=== PATIENT | male | born 1945 | race Caucasian/White ===

== ENCOUNTER 2020-01-25 10:37 | Emergency (ER) | payer MEDICARE, SELFPAY ==
[2020-01-25 10:43] VITALS: BP 161/92; PULSE 72; RESP 19; TEMP 36.8; O2SAT 97
--- NOTE | 2020-01-25 12:28 | ED.SKABFB ---
HPI - Skin/Abscess/Foreign Bdy General Chief complaint: Skin/Abscess/Foreign Body Stated complaint: wound in armpit Time Seen by Provider: 01/25/20 11:58 Source: patient Mode of arrival: ambulatory Limitations: no limitations History of Present Illness HPI narrative: This is a 74-year-old male that presents the emergency department for right axilla wound x1 week. Reports he thought he had a bite to the right armpit a week ago. Was seen at an urgent care and started on a steroid taper and a steroid cream. The lesion started to get more red and swollen. He also started to have drainage from the area. Was started on Bactrim yesterday. Has continued to have pain and swelling in the area. Denies fevers. Related Data Home Medications Medication Instructions Recorded Confirmed diltiazem HCl [DILT-XR] 240 mg PO DAILY 01/25/20 01/25/20 isosorbide mononitrate 60 mg PO BID 01/25/20 01/25/20 pantoprazole 40 mg PO DAILY 01/25/20 01/25/20 simvastatin 20 mg PO HS 01/25/20 01/25/20 sulfamethoxazole-trimethoprim 1 tablet PO BID 01/25/20 01/25/20 tamsulosin 0.4 mg PO DAILY 01/25/20 01/25/20 triamcinolone acetonide 1 applic TOPICAL BID 01/25/20 01/25/20 Allergies Allergy/AdvReac Type Severity Reaction Status Date / Time No Known Allergies Allergy Verified 01/25/20 11:48 Review of Systems Review of Systems: Narrative: CONSTITUTIONAL: Denies fever SKIN: Reports abscess All systems reviewed & are unremarkable except as noted in HPI and below PMFSH Past Medical History Medical History (Updated 01/25/20 @ 14:45 by Camila Cloud PA-C) History of coronary artery disease History of gastroesophageal reflux (GERD) History of hyperlipidemia History of hypertension Social History Social History Gender identity (if verbalized by the patient): Male Exam Narrative: Exam Narrative: GENERAL: Well-appearing, obese, and in no acute distress. HEAD: Normocephalic, atraumatic. EYES: EOMI EXTREMITIES: Normal range of motion. Right axilla with two small (1.5cm) areas of erythema with central fluctuance, draining pus with expression. Moderate surrounding erythema and induration. No lymphangitic streaking SKIN: Warm, dry, no rash. NEURO: No focal deficits. Alert and oriented x3. PSYCH: Normal mood and affect Course Vital Signs Vital signs: Vital Signs Temperature 98.3 F 01/25/20 10:43 Pulse Rate 72 01/25/20 10:43 Respiratory Rate 19 01/25/20 10:43 Blood Pressure 161/92 H 01/25/20 10:43 Pulse Oximetry 97 01/25/20 10:43 Temperature 98.3 F 01/25/20 10:43 Pulse Rate 72 01/25/20 10:43 Respiratory Rate 19 01/25/20 10:43 Blood Pressure 161/92 H 01/25/20 10:43 Pulse Oximetry 97 01/25/20 10:43 Procedures Abscess I/D upper extremity: Date of Incision: 01/25/20 Time of Incision: 14:44 Side (if applicable): right Local Anesthetic: lidocaine 1% and with epi Amount of anesthesia used (mL): 3 Technique: incised with #11 blade Packing used?: none I&D Results: Pus and Blood MDM - Skin/Abscess/Foreign Bdy MDM Narrative Medical decision making narrative: Patient presents the emergency department for cellulitis of the right axilla. 2 small areas purulence that were opened with small amounts of pus expressed. This was sent for wound culture. Patient is afebrile and nontoxic-appearing. CBC with mild leukocytosis to 13.6. CRP is mildly elevated. ESR is normal. Patient is stable and felt appropriate for further outpatient evaluation. He will follow-up with his primary care doctor. He is to continue his oral antibiotics. Patient was given warnings to return to the ER Lab Data Attestation: I reviewed the patient's lab results. Result diagrams: 01/25/20 12:44 01/25/20 12:44 Labs: Lab Results 01/25/20 01/25/20 Range/Units 12:44 12:44 WBC 13.6 H (4.5-10.0) K/mm3 RBC 5.17 (4.6-6.20) M/mm3 Hgb 16.1 (14.0-18.
[2020-01-25 13:04] LABS: Basophils Absolute Auto 0.1 K/mm3 (0.0-0.1); Basophils Percent Auto 0.6 % (0.2-1.2); Eosinophils Absolute Auto 0.2 K/mm3 (0-0.3); Eosinophils Percent Auto 1.3 % (0-4.4); Hematocrit 46.9 % (42.0-52.0); Hemoglobin 16.1 g/dL (14.0-18.0); Immature Granulocyte Absolute 0.18 K/mm3 (0.00-0.031); Immature Granulocyte Percent A 1.3 % (0-0.5); Lymphocytes Absolute Auto 2.44 K/mm3 (0.9-3.2); Lymphocytes Percent Auto 17.9 % (18.3-44.2); Mean Corpuscular HGB Conc 34.3 g/dl (32-36); Mean Corpuscular Hemoglobin 31.1 pg (26-34); Mean Corpuscular Volume 90.7 fl (80-100); Mean Platelet Volume 10.4 fl (7.4-10.4); Monocytes Absolute Auto 1.1 K/mm3 (0.1-0.6); Neutrophils Absolute Auto 9.7 K/mm3 (1.3-6.7); Neutrophils Percent Auto 70.9 % (45.5-73.1); Platelet Count Result 247 k/mm3 (150-375); Red Blood Count 5.17 M/mm3 (4.6-6.20); Red Cell Distribution Width 13.2 % (11.5-14.5); White Blood Count 13.6 K/mm3 (4.5-10.0)
[2020-01-25 13:07] LABS: Anion Gap 13.4 mmol/L (7-16); Blood Urea Nitrogen 18 mg/dL (9-20); CRP 2.7 mg/dL (<1.0); Calcium 9.1 mg/dL (8.4-10.2); Carbon Dioxide 24 mmol/L (22-30); Chloride 102 mmol/L (98-107); Estimated CRCL calculation 65 ml/min; Estimated Glomerular Filt Rate > 60; Glucose 116 mg/dL (75-110); Potassium 4.4 mmol/L (3.4-5.0); Sodium 135 mmol/L (137-145)
[2020-01-25 13:41] LABS: Erythrocyte Sedimentation Rate 10 mm/hr (0-20)
[2020-01-25 15:02] VITALS: BP 144/88; PULSE 66; RESP 18; TEMP 36.7; O2SAT 95
== END 2020-01-25 15:03 | disposition home or self-care (01) ==
PROVIDERS: Physician Assistant; Emergency Provider Emergency Medicine
DX: L03.111 Cellulitis of right axilla (principal); I25.10 Atherosclerotic heart disease of native coronary artery without angina pectoris; K21.9 Gastro-esophageal reflux disease without esophagitis; E78.5 Hyperlipidemia, unspecified; I10 Essential (primary) hypertension
CPT/HCPCS: 10060; 36415; 80048; 85025; 85652; 86140; 87070; 87075; 87147; 87186; 87205; 99283

== ENCOUNTER 2020-05-31 12:36 | Emergency (ER) | payer MEDICARE, SELFPAY ==
--- NOTE | ~2020-05-31 | CT_ITS ---
EXAMINATION: CTA chest PE protocol DATE: 05/31/2020 14:17 INDICATION: Shortness of breath. Cardiac catheterization 3 weeks ago. TECHNIQUE: Computed tomography angiography (CTA) of the chest was performed with 100 mL Omnipaque-350 intravenous contrast timed to evaluate the pulmonary arteries. Coronal maximum intensity projection 3D-reconstructions were created by the technologist. Automated exposure control and iterative reconst ruction technique were employed. Exam dose: 886.40 mGy-cm total exam DLP. COMPARISON: 05/31/2020 portable AP chest FINDINGS: There is diagnostic contrast enhancement of the pulmonary arteries and no evidence of pulmo nary embolism. Status post sternotomy. No thoracic aortic aneurysm is evident. Normal heart size. Coronary artery calcifications. No hilar or mediastinal mass lesion or lymphadenopathy. No pulmonary consolidation or pulmonary mass lesion is evident. 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 Calcified splenic granulomas consistent with old granulomatous disease. Included portions of the adre nal glands are unremarkable. Included skeletal structures are unremarkable other than degenerative changes of the cervical and tho racic spine. No suspicious osteolytic or osteoblastic lesions are noted.. IMPRESSION: No evidence of pulmonary embolism Reviewed, dictated and finalized at [facility]. Reviewed, dictated and finalized at [facility]. 'S SWIM COACH
--- NOTE | ~2020-05-31 | XR_ITS ---
XR chest 1V portable DATE: 05/31/2020 12:56 INDICATION: Chest pain TECHNIQUE: Portable AP chest on 12 05/23/2020 at 1256 hours COMPARISON: None FINDINGS: Status post sternotomy. Heart size is likely within normal range considering magnification associated with AP projection. No hilar or mediastinal enlargement is evident. Aortic arch and descen ding thoracic aortic calcification. No pulmonary infiltrate or consolidation, pleural effusion or pulmonary vascular congestion or pneumo thorax. Diffuse osteopenia. IMPRESSION: Status post sternotomy; no active cardiac pulmonary disease Reviewed, dictated and finalized at [facility]. [employer]
--- NOTE | 2020-05-31 12:40 | ECG_ITS ---
Measurements Intervals [place] Rate: 66 P: 74 [place]: 186 QRS: 13 QRSD: 105 T: 43 QT: 398 QTc: 420 Interpretive Statements SINUS RHYTHM WITH SINUS ARRHYTHMIA VENTRICULAR PREMATURE COMPLEX DELAYED PRECORDIAL R/S TRANSITION BASELINE ARTIFACT- V5 BORDERLINE ECG Electronically Signed On 05-31-2020 16:27:22 BEEF SELECTOR by Vj Avila D.O.
[2020-05-31 12:42] VITALS: BP 159/89; PULSE 63; RESP 18; TEMP 36.8; O2SAT 95
[2020-05-31 12:46] VITALS: PULSE 58
--- NOTE | 2020-05-31 12:49 | ED.CHESTPAIN ---
HPI - Chest Pain General Chief Complaint: Chest Pain Stated Complaint: cp/left arm pain Time Seen by Provider: 05/31/20 12:47 Source: patient Limitations: no limitations History of Present Illness HPI narrative: 75 years old white male wake up this morning with left shoulder discomfort. Improved at rest, currently patient still have some heaviness. Patient denies any shortness of breath. Patient been having intermittent similar symptoms for the last 2 months, cardiac cath 3 weeks ago showed occlusion of small coronary arteries, changing medication was recommended at that time to see how it goes. Currently patient on a baby aspirin once a day. Patient denies any fever, chills, nausea, vomiting, exposure to anybody known having COVID-19 Related Data Home Medications Medication Instructions Recorded Confirmed isosorbide mononitrate 60 mg PO BID 01/25/20 01/25/20 pantoprazole 40 mg PO DAILY 01/25/20 01/25/20 simvastatin 20 mg PO HS 01/25/20 01/25/20 tamsulosin 0.4 mg PO DAILY 01/25/20 01/25/20 Allergies Allergy/AdvReac Type Severity Reaction Status Date / Time No Known Allergies Allergy Verified 05/31/20 12:47 Review of Systems Review of Systems: Narrative: CONSTITUTIONAL: Denies fever, chills, or sweats. EYES: Denies visual changes, redness, or discharge. ENT: Denies rhinorrhea, congestion, sore throat, or otalgia. CARDIOVASCULAR: Intermittent chest pain RESPIRATORY: Denies cough or dyspnea. GASTROINTESTINAL: Denies abdominal pain, nausea, vomiting, or diarrhea. GENITOURINARY: Denies dysuria or hematuria. SKIN: Denies rash or itching. MUSCULOSKELETAL: Denies back pain, joint pain, or myalgia. NEUROLOGIC: Denies headache, numbness, or weakness. PSYCHIATRIC: Denies anxiety or depression. [facility] Past Medical History Medical History (Updated 05/31/20 @ 15:30 by Vangie Reyes MD) APC (atrial premature contractions) CAD (coronary artery disease) History of coronary artery disease [place] 1994, CABG 1994, LAD stent at a later date History of gastroesophageal reflux (GERD) History of hyperlipidemia History of hypertension Surgical History Surgical History (Updated 05/31/20 @ 15:23 by Vangie Reyes MD) Hx of CABG 1994: PINZON to the Left anterior descending, T graft supplying the OM2 and PDA. Family History Family History (Updated 05/31/20 @ 15:25 by Vangie Reyes MD) Mother Heart disease Father Heart disease Social History Social History (Updated 05/31/20 @ 15:25 by Vangie Reyes MD) Social History: Gender identity (if verbalized by the patient): Male Exam Narrative: Exam Narrative: General appearance: Well-developed, well-nourished Skin: Normal color Head: Normocephalic, nontraumatic Eyes: Clear conjunctiva ENT: Oropharynx normal, ears normal, nose normal Neck: Supple, nontender Chest and respiratory: Airway patent, no respiratory distress, no accessory muscle use Heart: Regular rate/rhythm Abdomen: Soft, nontender, no organomegaly, quiet bowel sounds Vascular: Normal peripheral pulses, normal capillary refill. Musculoskeletal: Normal range of motion, nontender back Neurologic: Alert and oriented ?3, [employer] is normal as tested, no gross motor deficit Course Course Emergency Course: Stable Consultations Consultation #1: Dr. Reyes Date: 05/31/20 Time: 13:33 Consultation #2: Dr. Reyes Came to the emergency room, after evaluation decided to let patient go home after the second troponin looks okay. She told me that the cardiac cath looks good and patient would be okay to be discharged and she is planning to call him at home for appointment. Date: 05/31/20 Time: 15:05 Vital Signs Vit
[2020-05-31] MEDS: ASPIRIN 81 MG CHEWABLE TABLET 324 MG PO (12:54)
[2020-05-31 12:55] LABS: Basophils Absolute Auto 0.1 K/mm3 (0.0-0.1); Basophils Percent Auto 0.9 % (0.2-1.2); Eosinophils Absolute Auto 0.2 K/mm3 (0-0.3); Eosinophils Percent Auto 2.7 % (0-4.4); Hematocrit 44.6 % (42.0-52.0); Hemoglobin 15.4 g/dL (14.0-18.0); Immature Granulocyte Absolute 0.04 K/mm3 (0.00-0.031); Immature Granulocyte Percent A 0.5 % (0-0.5); Lymphocytes Absolute Auto 2.76 K/mm3 (0.9-3.2); Lymphocytes Percent Auto 33.9 % (18.3-44.2); Mean Corpuscular HGB Conc 34.5 g/dl (32-36); Mean Corpuscular Hemoglobin 30.7 pg (26-34); Mean Corpuscular Volume 88.8 fl (80-100); Monocytes Percent Auto 12.4 % (2.6-8.5); Neutrophils Percent Auto 49.6 % (45.5-73.1); Platelet Count Result 222 k/mm3 (150-375); Red Blood Count 5.02 M/mm3 (4.6-6.20); Red Cell Distribution Width 12.7 % (11.5-14.5); White Blood Count 8.1 K/mm3 (4.5-10.0)
[2020-05-31 13:05] LABS: INR 0.9; Prothrombin Time 13.1 Seconds (11.1-14.7)
[2020-05-31 13:06] LABS: Partial Thromboplastin Time 29.4 SECONDS (22.3-36.8)
[2020-05-31 13:08] LABS: D Dimer 0.56 ug/mL (<0.48)
[2020-05-31 13:11] LABS: Anion Gap 10 mmol/L (8-16); Blood Urea Nitrogen 18 mg/dL (9-20); Calcium 9.5 mg/dL (8.4-10.2); Carbon Dioxide 25 mmol/L (22-30); Chloride 102 mmol/L (98-107); Estimated CRCL calculation 74 ml/min; Estimated Glomerular Filt Rate > 60; Glucose 100 mg/dL (75-110); Potassium 4.3 mmol/L (3.4-5.0); Sodium 137 mmol/L (137-145)
[2020-05-31 13:23] LABS: Troponin I < 0.012 ng/mL (0.000-0.034)
[2020-05-31 13:30] VITALS: BP 122/84; PULSE 61; RESP 16; O2SAT 94
[2020-05-31] MEDS: NITROGLYCERIN SL 0.4 MG TABLET SUBLINGUAL (14:22)
[2020-05-31 14:23] VITALS: BP 118/78; PULSE 63; RESP 15; O2SAT 94
[2020-05-31 14:31] VITALS: BP 122/81; PULSE 90; RESP 16; O2SAT 98
--- NOTE | 2020-05-31 14:31 | PC.NURSE ---
received nitro x1 denied pain after dosing went from 4/10 to 0/10
--- NOTE | 2020-05-31 15:09 | PM.CNCAR ---
Assessment and Plan Assessment and plan (1) Chest pain: Qualifiers: Chest pain type: unspecified Qualified Code(s): R07.9 - Chest pain, unspecified Code(s): R07.9 - Chest pain, unspecified Status: Acute Assessment and Plan: Patient has some exertional chest discomfort for the 1st time in quite a while as well as some pounding of his heart. The palpitations may be from his APCs. He is getting his antianginal medications adjusted. The patient's left arm discomfort was probably musculoskeletal. He is feeling well with no ischemic changes. If his 2nd troponin is unremarkable I think he can be discharged home for office follow-up. Reassurance provided to pt and . The patient feels that this is related to the higher dose of metoprolol; I think that is coincidental. However we may need to reduce the dose back to 25 or 37.5 mg daily based on his impression that the metoprolol caused him harm. (2) CAD (coronary artery disease): Code(s): I25.10 - Atherosclerotic heart disease of [place] coronary artery without angina pectoris Status: Acute Assessment and Plan: His cardiac catheterization in early May showed patent grafts but moderate disease of the mid circumflex with several tight stenosis of the OM 4, and stenosis the ostial diagonal. We are hoping that medical therapy will resolve his angina. (3) Hx of CABG: Code(s): Z95.1 - Presence of aortocoronary bypass graft Status: Acute Assessment and Plan: CABG X 3; intact grafts by cath 05/2020. (4) APC (atrial premature contractions): Code(s): I49.1 - Atrial premature depolarization Status: Acute Assessment and Plan: Frequent APCs noted, which may account for the patient's heart pounding sensation. Enjoys coffee, 3-4 cups a day, says sometimes a whole pot of coffee. Recommend the patient reduce his caffeine intake. History of Present Illness History of Present Illness Consult date/time: 05/31/20 15:09 Requesting physician: Carlton Castillo MD Consult reason: chest pain Reason For Visit: cp/left arm pain Narrative: Date of service: 05/31/2020 Mr. Howie Arana is a 75-year-old white male with history of CAD and CABG followed by Dr. Sheets. I was asked to see him by Dr. Castillo in the ER for my advice and opinion regarding his chest and arm pain in consultation. The patient has a history of [place] in 1992 and CABG X 3 in 1994, as well as a Left anterior descending stent jorge luis later date. He was hospitalized a [place] in March 2020 with some chest discomfort with negative troponins and discharged. He saw Dr. Sheets in April w/ exertional problems, and a stress test showed a small medium-sized area of infarction at the apex, and a small mild area of ischemia of the basal anterolateral and mid anterolateral segments with ejection fraction 67%. He then underwent cardiac catheterization by Dr. Odell on May 08, 2020 a [facility]. This showed occlusion of the mid Left anterior descending, 50-60% diffuse disease of the mid CX with severe multiple stenosis in the OM-4 branch, chronic total occlusion of the proximal RCA, patent PINZON to Left anterior descending with a patent T graft supplying the OM and RPDA. EF 60-65%. Continuing to work with antianginal medications was recommended and, if the patient continued to have angina despite optimal medical therapy then consideration to intervention on the ostial diagonal possibly the circumflex could be entertained. With that in mind, his diltiazem was switched to metoprolol succinate 25 mg daily for 1 week and increase to 50 mg daily last week. The patient has been doing well, doing his usual long walk on the bike paths with no problems. This morning he woke up with left arm aching. He has troubles with his left shoulder sometimes and hi
[2020-05-31 16:18] LABS: Troponin I < 0.012 ng/mL (0.000-0.034)
[2020-05-31 16:58] VITALS: BP 122/82; PULSE 64; RESP 20; O2SAT 95
== END 2020-05-31 17:01 | disposition home or self-care (01) ==
PROVIDERS: Emergency Provider Emergency Medicine; PCP Internal Medicine Cardiovascular Disease
DX: R07.9 Chest pain, unspecified (principal); I25.10 Atherosclerotic heart disease of native coronary artery without angina pectoris; Z95.1 Presence of aortocoronary bypass graft; K21.9 Gastro-esophageal reflux disease without esophagitis; E78.5 Hyperlipidemia, unspecified; I10 Essential (primary) hypertension; Z79.82 Long term (current) use of aspirin; I49.3 Ventricular premature depolarization; I49.1 Atrial premature depolarization
CPT/HCPCS: 36415; 71045; 71275; 80048; 84484; 85025; 85380; 85610; 85730; 93005; 99284; A9270; Q9967

== ENCOUNTER 2020-11-06 08:50 | Outpatient (CLI) | payer MEDICARE, SELFPAY ==
[2020-11-06 09:37] LABS: Cholesterol 159 mg/dL (0-200); HDL Direct 30 mg/dL; Triglycerides 152 mg/dL (<150)
[2020-11-06 09:48] LABS: LDL Cholesterol Direct 96 mg/dL
== END 2020-11-06 08:51 | disposition home or self-care (01) ==
LOC: ANHLAB 08:55
PROVIDERS: Visit Provider Internal Medicine Cardiovascular Disease
DX: E78.2 Mixed hyperlipidemia (principal)
CPT/HCPCS: 36415; 80061

== ENCOUNTER 2021-04-02 12:35 | Observation (INO) | payer MEDICARE, SELFPAY ==
[2021-04-02] VITALS (7 sets, daily range): BP systolic 130–161; BP diastolic 74–99; PULSE 79–89; RESP 16–97; TEMP 36.4–36.5; O2SAT 94–100
--- NOTE | ~2021-04-02 | XR_ITS ---
EXAMINATION: XR chest 2V EXAM DATE: 04/02/2021 13:01 INDICATION: Chest pain. History coronary artery disease, myocardial infarction, reflux and hypertensi on. TECHNIQUE: Frontal and lateral projections of the chest obtained and reviewed. Comparison is made to prior examination from 05/31/2020. FINDINGS: Sternotomy wires are present without findings to suggest sternal dehiscence. The cardiomed iastinal silhouette is prominent but magnified on this AP technique. No confluent consolidation, pneu mothorax or pleural effusion suspected. There are no osseous abnormalities identified. IMPRESSION: No acute cardiopulmonary findings. Reviewed, dictated and finalized at [facility].
--- NOTE | 2021-04-02 12:36 | ECG_ITS ---
Measurements Intervals [place] Rate: 87 P: [place]: 0 QRS: 9 QRSD: 109 T: 81 QT: 356 QTc: 430 Interpretive Statements ATRIAL FIBRILLATION NONSPECIFIC T-WAVE ABNORMALITY- HIGH LATERAL LEADS ABNORMAL ECG Electronically Signed On 04-02-2021 12:54:53 CDT by Vj Avila D.O.
[2021-04-02 13:23] LABS: Basophils Absolute Auto 0.1 K/mm3 (0.0-0.1); Basophils Percent Auto 0.7 % (0.2-1.2); Eosinophils Absolute Auto 0.1 K/mm3 (0-0.3); Eosinophils Percent Auto 1.4 % (0-4.4); Hematocrit 44.8 % (42.0-52.0); Hemoglobin 15.4 g/dL (14.0-18.0); Immature Granulocyte Absolute 0.04 K/mm3 (0.00-0.031); Immature Granulocyte Percent A 0.5 % (0-0.5); Lymphocytes Absolute Auto 2.29 K/mm3 (0.9-3.2); Lymphocytes Percent Auto 28.5 % (18.3-44.2); Mean Corpuscular HGB Conc 34.4 g/dl (32-36); Mean Corpuscular Volume 90.3 fl (80-100); Mean Platelet Volume 10.7 fl (7.4-10.4); Monocytes Absolute Auto 0.8 K/mm3 (0.1-0.6); Monocytes Percent Auto 9.8 % (2.6-8.5); Neutrophils Absolute Auto 4.7 K/mm3 (1.3-6.7); Neutrophils Percent Auto 59.1 % (45.5-73.1); Platelet Count Result 228 k/mm3 (150-375); Red Blood Count 4.96 M/mm3 (4.6-6.20); Red Cell Distribution Width 13.5 % (11.5-14.5)
[2021-04-02] MEDS: ASPIRIN 81 MG CHEWABLE TABLET 324 MG PO (13:33)
[2021-04-02 13:41] LABS: Prothrombin Time 13.2 Seconds (11.1-14.7)
[2021-04-02 13:42] LABS: Partial Thromboplastin Time 27.5 SECONDS (22.3-36.8)
[2021-04-02 13:47] LABS: Anion Gap 7 mmol/L (8-16); Blood Urea Nitrogen 16 mg/dL (9-20); Calcium 9.3 mg/dL (8.4-10.2); Carbon Dioxide 28 mmol/L (22-30); Chloride 101 mmol/L (98-107); Estimated CRCL calculation 65 ml/min; Estimated Glomerular Filt Rate > 60; Glucose 108 mg/dL (65-110); Potassium 4.1 mmol/L (3.4-5.0); Sodium 136 mmol/L (137-145)
[2021-04-02 13:59] LABS: Troponin I < 0.012 ng/mL (0.000-0.034)
[2021-04-02 14:00] LABS: NT Pro B Type Natriuretic Pept 657 pg/mL (5-100)
--- NOTE | 2021-04-02 14:06 | ED.CHESTPAIN ---
HPI - Chest Pain General Chief Complaint: Chest Pain Stated Complaint: chest pain Time Seen by Provider: 04/02/21 12:42 History of Present Illness HPI narrative: Patient is a 76-year-old male who presents to the ER with reports of chest pain and shortness of breath. Ongoing for the last week. Reports he can only walk a half block before he has chest discomfort and shortness of breath or he has to stop. Typically he can walk 1 mile. He reports he was having improved discomfort with nitro 5 days ago but he can no longer get improvement with nitro at this time. No diaphoresis. Reports new lower extremity edema in both legs that is 1+. No orthopnea. Wroks with Dr. Sheets. Related Data Home Medications Medication Instructions Recorded Confirmed isosorbide mononitrate 60 mg PO BID 01/25/20 01/25/20 pantoprazole 40 mg PO DAILY 01/25/20 01/25/20 simvastatin 20 mg PO HS 01/25/20 01/25/20 tamsulosin 0.4 mg PO DAILY 01/25/20 01/25/20 Allergies Allergy/AdvReac Type Severity Reaction Status Date / Time No Known Allergies Allergy Verified 05/31/20 12:47 Review of Systems Review of Systems: All systems reviewed & are unremarkable except as noted in HPI and below Constitutional: Constitutional: Denies chills, Reports fatigue, Denies fever(s) and Denies weakness Cardiovascular: Cardiovascular: Reports chest pain, Denies rapid heart rate and Denies radiating jaw, neck or arm pain Respiratory: Respiratory: Reports chest congestion, Denies cough, Reports dyspnea and Denies wheezing Gastrointestinal: Gastrointestinal: Denies abdominal pain, Denies nausea and Denies vomiting [facility] Past Medical History Medical History (Updated 04/02/21 @ 17:02 by Gustabo Leos MD) APC (atrial premature contractions) CAD (coronary artery disease) History of coronary artery disease [place] 1994, CABG 1994, LAD stent at a later date History of gastroesophageal reflux (GERD) History of hyperlipidemia History of hypertension Surgical History Surgical History (Updated 05/31/20 @ 15:23 by Vangie Reyes MD) Hx of CABG 1994: PINZON to the Left anterior descending, T graft supplying the OM2 and PDA. Family History Family History (Updated 05/31/20 @ 15:25 by Vangie Reyes MD) Mother Heart disease Father Heart disease Social History Social History (Updated 05/31/20 @ 15:25 by Vangie Reyes MD) Social History: Gender identity (if verbalized by the patient): Male Exam Narrative: GENERAL: Well-appearing, well-nourished, and in no acute distress. HEAD: Normocephalic, atraumatic. ENT: Mucous membranes moist. CHEST: Clear to auscultation. No respiratory distress. HEART: Irregular regular rate and rhythm. Normal peripheral pulses. ABDOMEN: Soft, nontender, nondistended. EXTREMITIES: Normal range of motion. 1+ edema. SKIN: Warm, dry, no rash. NEURO: Alert and oriented x3. PSYCH: Normal mood and affect. Course Course Emergency Course: Admit to the hospitalist service. Cardiology consulted. Will give Lovenox. Vital Signs Vital signs: Vital Signs Temperature 97.7 F 04/02/21 12:43 Pulse Rate 84 04/02/21 12:43 Respiratory Rate 19 04/02/21 12:43 Blood Pressure 136/96 H 04/02/21 12:43 Pulse Oximetry 97 04/02/21 12:43 Temperature 97.7 F 04/02/21 12:43 Pulse Rate 86 04/02/21 15:13 Respiratory Rate 97 H 04/02/21 15:13 Blood Pressure 130/99 H 04/02/21 15:13 Pulse Oximetry 100 04/02/21 15:13 MDM - Chest Pain Lab Data Result diagrams: 04/02/21 13:10 04/02/21 13:10 Labs: Lab Results 04/02/21 04/02/21 04/02/21 Range/Units 13:10 13:10 13:10 WBC 8.0 (4.5-10.0) K/mm3 RBC 4.96 (4.6-6.20) M/mm3 Hgb 15.4 (14.0-18.0) g/dL Hct 44.8 (42.0-52.0) % MCV 90.3 (80-100) fl MCH 31.0 (26-34) pg MCHC 34.4 (32-36) g/dl RDW 13.5 (11.5-14.5) % Plt Count 228 (150-375) k/mm3 MPV 10.7 H (7.4-10.4) fl Im
[2021-04-02] MEDS: ENOXAPARIN 120 MG/0.8 ML SYRINGE SUB-Q (15:12)
--- NOTE | 2021-04-02 17:00 | PM.IMHP ---
H&P: HPI History of Present Illness Date/Time: 04/02/21 17:00 Chief Complaint: Chest pain. Narrative: This is a 76-year-old male with coronary artery disease status post CABG in 1994, hypertension, and hyperlipidemia who presented to the emergency department earlier today from home for evaluation of chest pain since Tuesday. Patient describes intermittent angina over the years that he is still able to be quite active including 0.5 to 1 mi walk several times a week without issue. Since this past Tuesday, however, he has had nearly constant left anterior chest pressure associated with mild shortness of breath. He does suffer from reflux and admits that on occasion he has a difficult time differentiating between chest pain or discomfort related to his GERD. So far he has had 2 negative troponins and his EKG has not shown any significant ST segment changes though his EKG shows atrial fibrillation which is a new finding for the patient. He has no known history of atrial fibrillation and he denies feelings of racing heart, fluttering, and palpitations. No syncope or near syncope. He denies pleuritic pain and any significant lower extremity edema. No history of venous thromboembolism. Review of Systems Review of Systems: Twelve systems were reviewed with pertinent positives and negatives as per HPI. No fever, chills, or sweats. No recent cold or flu symptoms though he does report a mild cough which he attributes to seasonal allergies. He denies sick contacts and exposure to those positive for COVID 19. No orthopnea though he reports occasional PND. He has never been diagnosed with sleep apnea. Reports spinal stenosis which limits his ability to walk farther than 1 mi. Scheduled to have a consultation for possible radiofrequency ablation. Except as documented, all other systems were reviewed and are negative. [facility] Past Medical History Medical History (Updated 04/02/21 @ 22:37 by Paz Acosta PA-C) Benign prostatic hyperplasia Coronary artery disease Gastroesophageal reflux disease History of coronary artery disease [place] 1994, CABG 1994, LAD stent at a later date Hyperlipidemia Hypertension Surgical History Surgical History (Updated 04/02/21 @ 22:37 by Paz Acosta PA-C) History of appendectomy History of bilateral knee replacement History of cataract extraction History of colonoscopy with polypectomy History of coronary artery bypass graft (1994) PINZON to the Left anterior descending, T graft supplying the OM2 and PDA. History of heart artery stent To left anterior descending. History of sinus surgery Family History Family History Mother Heart disease Father Heart disease Social History Social History (Updated 04/02/21 @ 22:37 by Paz Acosta PA-C) Social History: The patient is and lives with his in [place]. Nonsmoker. No alcohol or illicit substance abuse. He designates his , Dory Arana, as his surrogate decision maker and he wishes to be a full code. Meds Home Medications and Allergies Home Medications Medication Instructions Recorded Confirmed Type isosorbide mononitrate 60 mg PO BID 01/25/20 04/02/21 History pantoprazole 40 mg PO BID 01/25/20 04/02/21 History tamsulosin [Flomax] 0.4 mg PO DAILY 01/25/20 04/02/21 History aspirin 81 mg PO DAILY 04/02/21 04/02/21 History atorvastatin 80 mg PO DAILY 04/02/21 04/02/21 History buspirone 5 mg PO Q8H 04/02/21 04/02/21 History ibuprofen 800 mg PO Q8H PRN 04/02/21 04/02/21 History melatonin 5 mg PO HS PRN 04/02/21 04/02/21 History metoprolol succinate 25 mg PO DAILY 04/02/21 04/02/21 History nitroglycerin 0.4 mg SUBLINGUAL Q5MIN PRN 04/02/21 04/02/21 History Allergies Allergy/AdvReac Type Severity Reaction Status Date / Time No Known Allergies Allergy Verified 05/31/20 12:47 Vital Signs Vital Signs - 24 hr 04/02/21 12:43 04/02/21 13:14 04/02/21 15:13 Te
[2021-04-02 19:14] LABS: Alanine Aminotransferase 28 U/L (4-50); Alkaline Phosphatase 70 U/L (38-126); Aspartate Amino Transferase 29 U/L (17-59); Bilirubin,Total 0.5 mg/dL (0.2-1.3)
[2021-04-02 19:25] LABS: Troponin I < 0.012 ng/mL (0.000-0.034)
--- NOTE | 2021-04-02 21:26 | ADMGEN ---
This patient, Howie Arana, was admitted to IMU Room 201-01 04/02/212009. Patient/family oriented to hospital policies and general routines including ID bracelet, bed and alarms, visiting hours, pain management, procedures, bathroom and other care routines, personal items, smoking policy, room service/diet, and visiting hours. Information on how to activate the Rapid Response Team has been discussed. Patient/Family are encouraged to report perceived risks to care and to ask questions if they do not understand what they are told or what they should do.
[2021-04-02 23:04] LABS: Troponin I < 0.012 ng/mL (0.000-0.034)
[2021-04-03] VITALS (17 sets, daily range): BP systolic 102–148; BP diastolic 69–98; PULSE 65–93; RESP 14–22; TEMP 36.3–36.9; O2SAT 94–99
[2021-04-03] MEDS: busPIRone HCL 5 MG TABLET PO ×3 (05:24→21:14)
[2021-04-03 06:09] LABS: Anion Gap 8 mmol/L (8-16); Blood Urea Nitrogen 16 mg/dL (9-20); Calcium 8.9 mg/dL (8.4-10.2); Carbon Dioxide 28 mmol/L (22-30); Chloride 103 mmol/L (98-107); Estimated CRCL calculation 65 ml/min; Estimated Glomerular Filt Rate > 60; Glucose 101 mg/dL (65-110); Magnesium 1.8 mg/dL (1.6-2.3); Potassium 4.2 mmol/L (3.4-5.0); Sodium 139 mmol/L (137-145)
[2021-04-03] MEDS: ISOSORBIDE MONONITRATE 60 MG TAB.ER.24H PO ×2 (09:46→16:36)
[2021-04-03] MEDS: METOPROLOL SUCCINATE EXT REL 25 MG TABCR PO (09:46)
[2021-04-03] MEDS: ATORVASTATIN 40 MG TABLET 80 MG PO (09:46)
[2021-04-03] MEDS: PANTOPRAZOLE 40 MG TABLET PO ×2 (09:47→16:35)
[2021-04-03] MEDS: TAMSULOSIN HCL 0.4 MG CAPSULE PO (09:47)
[2021-04-03] MEDS: ASPIRIN 81 MG ENTERIC TABLET PO (09:47)
--- NOTE | 2021-04-03 09:58 | PM.CNCAR ---
Assessment and Plan Assessment and plan (1) Chest pain: Code(s): R07.9 - Chest pain, unspecified Status: Acute Assessment and Plan: Outpatient Lexiscan stress test. Chest pain is constant x5 days and not necessarily worsen with activity. Cannot exclude underlying angina but may also be GERD versus musculoskeletal also. He has ruled out for myocardial infarction. (2) Atrial fibrillation: Code(s): I48.91 - Unspecified atrial fibrillation Status: Acute Assessment and Plan: New onset. 2D echocardiogram Doppler will be ordered and reviewed. I did talk about the risks benefits alternatives of anticoagulation he verbalized understanding. Also talked about different anticoagulants and he will start Xarelto 20 mg daily if cost effective. Continue low-dose aspirin. Consider outpatient cardioversion but will defer this to Dr. Sheets. Will check a T4 level. Will also replace his magnesium with 2 g IV x1. (3) Coronary artery disease: Code(s): I25.10 - Atherosclerotic heart disease of [place] coronary artery without angina pectoris Status: Acute Assessment and Plan: Continue aspirin, high-dose statin, isosorbide mononitrate, metoprolol succinate (4) Hypertension: Code(s): I10 - Essential (primary) hypertension Status: Acute Assessment and Plan: Reasonably controlled (5) Hyperlipidemia: Code(s): E78.5 - Hyperlipidemia, unspecified Status: Acute Assessment and Plan: On high-dose statin (6) Hypersomnolence: Code(s): G47.10 - Hypersomnia, unspecified Status: Acute Assessment and Plan: Undoubtedly has sleep apnea and likely a contributor to his atrial fibrillation. Will order a nocturnal oxygen study. (7) CHF (congestive heart failure): Code(s): I50.9 - Heart failure, unspecified Status: Acute Assessment and Plan: Mild acute diastolic heart failure in possibly related to his new onset AFib. Echo to be ordered. Furosemide 20 mg IV x1 History of Present Illness History of Present Illness Consult date/time: 04/03/21 09:58 Requesting physician: Gustabo Leos MD Consult reason: chest pain and atrial fibrillation Reason For Visit: chest pain, afib Narrative: Reason for consultation: Chest pain, atrial fibrillation Date of service 04/03/2021 Requesting provider: Dr. Leos History: Patient is a 76-year-old male who has a longstanding history of coronary artery disease. He is a patient Dr. Sheets. He is the longstanding history of chest pain. He does have intermittent angina over the years but still is active is able to walk up to a mi several times per week. Over the past 5 days though he describes a relatively chronic and constant chest pain which she describes as a pressure sensation on the left side of his chest. He states it is constantly there and is not necessarily worsen with exertion. He describes as a dull ache. He has had some shortness of breath on Tuesday of last week. He does have some lower extremity swelling but this is not new or different. He denies any syncope, presyncope, paroxysmal nocturnal dyspnea. He does have hypersomnolence. He sometimes has some palpitations. He came to the hospital for further workup because he felt worse yesterday. He has ruled out for myocardial infarction. Continue to have some dull chest pain but was found to be in atrial fibrillation which is a new diagnosis for him. Heart rate is reasonably controlled. Review of Systems Review of Systems: All systems reviewed & are unremarkable except as noted in HPI and below Constitutional: Constitutional: Denies weakness Eyes: Eyes: Denies blurry vision ENT: Reports Normal hearing present Cardiovascular: Cardiovascular: Reports chest pain and Reports leg edema Respiratory: Respiratory: Reports dyspnea Gastrointestinal: Gastrointestinal: Denies abdominal pain and Reports heartburn Genitourinary:
--- NOTE | 2021-04-03 11:35 | PCCCNOTE ---
On 04/03/21, the student, [Radha Weeks ], provided care and [facility]. I have reviewed the student's documentation and agree with the findings.
[2021-04-03 13:19] LABS: T4 Thyroxine 9.16 ug/dL (5.53-11.0)
[2021-04-03] MEDS: MAGNESIUM SULF 2 GM/WATER 50ML 2 GM/50 ML BAG IVPB (13:47)
[2021-04-03] MEDS: CALCIUM CARBONATE (TUMS) 500 MG (200 MG ELEMENTAL) PO (15:06)
--- NOTE | 2021-04-03 15:28 | PM.IMPN ---
Progress Note: A&P Assessment and Plan (1) Chest pain: Code(s): R07.9 - Chest pain, unspecified Status: Acute Assessment and Plan: Patient reports nearly constant left anterior chest pressure since last Tuesday associated with mild shortness of breath. The discomfort he has been feeling may very well be related to atrial fibrillation which was found on EKG today or perhaps GI in etiology. I think cardiac etiology is less likely given the length of time he has had symptoms without changes in his EKG or troponin elevation. Given his cardiac history however it would be prudent to obtain Cardiology consultation. 04/03 Interval History: patient with history of coronary artery disease status post CABG presented emergency department with a complaint of chest pain seen by software licensing specialist, software licensing specialist does not suspect acute coronary syndrome rather patient most likely has musculoskeletal or GI pain, his [place] has ruled out with 3 sets of cardiac enzymes negative, and normal EKG, recommending outpatient stress test, patient does have a significant history gastritis currently on PPI will add Carafate, patient with a new onset atrial fibrillation with RVR rate is controlled with metoprolol p.o. 25 mg q.day, anticoagulated with Xarelto, cardiac echo is ordered will follow-up and further recommendation to follow will have a PT OT evaluate the patient. (2) Atrial fibrillation: Code(s): I48.91 - Unspecified atrial fibrillation Status: Acute Assessment and Plan: EKG shows atrial fibrillation which is a new diagnosis for the patient. He has no palpitations or fluttering however I suppose his discomfort with shortness of breath may be related to the rhythm. Check TSH and echocardiogram. He will receive a dose of Lovenox 1 milligram/kilogram and I suspect he will need to be on chronic anticoagulation given CHADS2-VASc score of 3. Screen for sleep apnea tonight. (3) Coronary artery disease: Code(s): I25.10 - Atherosclerotic heart disease of [place] coronary artery without angina pectoris Status: Acute Assessment and Plan: Continue statin, aspirin, beta-misael, and isosorbide. (4) Hypertension: Code(s): I10 - Essential (primary) hypertension Status: Acute Assessment and Plan: Blood pressures were reviewed and they are reasonably well controlled though diastolic is in the upper 90s. (5) Hyperlipidemia: Code(s): E78.5 - Hyperlipidemia, unspecified Status: Acute Assessment and Plan: Continue statin and check LFTs. Subjective Date/time seen: 04/03/21 15:28 Chief Complaint: Chest pain. Narrative: This is a 76-year-old male with coronary artery disease status post CABG in 1994, hypertension, and hyperlipidemia who presented to the emergency department earlier today from home for evaluation of chest pain since Tuesday. Patient describes intermittent angina over the years that he is still able to be quite active including 0.5 to 1 mi walk several times a week without issue. Since this past Tuesday, however, he has had nearly constant left anterior chest pressure associated with mild shortness of breath. He does suffer from reflux and admits that on occasion he has a difficult time differentiating between chest pain or discomfort related to his GERD. So far he has had 2 negative troponins and his EKG has not shown any significant ST segment changes though his EKG shows atrial fibrillation which is a new finding for the patient. He has no known history of atrial fibrillation and he denies feelings of racing heart, fluttering, and palpitations. No syncope or near syncope. He denies pleuritic pain and any significant lower extremity edema. No history of venous thromboembolism. 04/03 Interval History: patient with history of coronary artery disease status post CABG presented emergency department with a complaint of chest pain seen by software licensing specialist, software licensing specialist does not suspect acut
[2021-04-03] MEDS: FUROSEMIDE INJ 40 MG/4 ML VIAL 20 MG IV PUSH (16:34)
[2021-04-03] MEDS: SUCRALFATE SUSP 100 MG/ML 10 ML UDC 1000 MG PO ×2 (16:35→21:14)
[2021-04-03] MEDS: RIVAROXABAN 20 MG TABLET PO (18:22)
--- NOTE | 2021-04-03 22:44 | ECHO_ITS ---
Patient Info Name: Howie Herman Charter Age: 76 years : 1945 Gender: Male Ht: 67 in Wt: 265 lbs BSA: 2.44 m2 HR: 80 bpm BP: 117 / 72 mmHg Heart Rhythm: Atrial Fibrillation Exam Date: 04/03/2021 10:14 AM Exam Location: [facility] Patient Status: Outpatient Admit Date: 04/02/2021 Staff Ordering Physician: Paz Acosta PA-C Medical/Surgery Registered Nurse: Slade De La O RDCS, RT Attending Provider: Jasmyn Hoover MD Referring Physician: Karla GEORGE; Exam Type: CA echo doppler color flow Study Info Indications I48.1 - Persistent atrial fibrillation R07.9 - Chest pain, unspecified Complete two-dimensional, color flow and Doppler transthoracic echocardiogram is performed. Summary 1. Complete two-dimensional, color flow and Doppler transthoracic echocardiogram is performed. 2. Left ventricular chamber dimension is normal. 3. Left ventricular systolic function is normal, estimated at 60-65%. 4. There is mildly increased left ventricular wall thickness. 5. The left ventricular diastolic function is abnormal. 6. Right ventricular chamber dimension is mildly enlarged. 7. There is mild aortic valve regurgitation. 8. There is mild mitral valve regurgitation. 9. There is mild tricuspid valve regurgitation. 10. There is mild pulmonic regurgitation. 11. The aortic root size at the sinus of Valsalva is mildly dilated. Left Ventricle Left ventricular chamber dimension is normal. Left ventricular systolic function is normal, estimated at 60-65%. There is mildly increased left ventricular wall thickness. The left ventricular diastolic function is abnormal. Right Ventricle Right ventricular chamber dimension is mildly enlarged. Right ventricular systolic function is normal. Left Atria Left atrial chamber dimension is mildly enlarged. Right Atria Right atrial chamber dimension is normal. Atrial Septum Intact interatrial septum visualized by color flow imaging. Aortic Valve The aortic valve is trileaflet. There is mild aortic valve sclerosis. There is no aortic valve stenosis. There is mild aortic valve regurgitation. Pulmonic Valve The pulmonic valve is normal. There is no pulmonic valve stenosis. There is mild pulmonic regurgitation. Mitral Valve The mitral valve has normal leaflets. There is no mitral valve stenosis. There is mild mitral valve regurgitation. Tricuspid Valve The tricuspid valve leaflets are normal. There is no significant tricuspid valve stenosis. There is mild tricuspid valve regurgitation. No pulmonary hypertension, estimated pulmonary arterial systolic pressure is 24 mmHg. Pericardium/Pleural The pericardium appears normal. There is no pericardial effusion. Inferior Vena Cava Normal inferior vena cava with >50% collapse upon inspiration consistent with normal right atrial pressure, 5 mmHg. Aorta The aortic root size at the sinus of Valsalva is mildly dilated. Left Ventricular Outflow Tract Name Value Normal LVOT 2D LVOT Diameter 2.2 cm LVOT Doppler LVOT Peak Gradient 3 mmHg LVOT Mean Gradient 2 m
[2021-04-04] VITALS (10 sets, daily range): BP systolic 108–123; BP diastolic 72–83; PULSE 71–101; RESP 16–18; TEMP 36.2–36.6; O2SAT 94–97
[2021-04-04] MEDS: busPIRone HCL 5 MG TABLET PO ×2 (06:07→16:32)
[2021-04-04] MEDS: SUCRALFATE SUSP 100 MG/ML 10 ML UDC 1000 MG PO ×3 (06:07→16:33)
--- NOTE | 2021-04-04 06:29 | PM.PNCARD ---
Progress Note: A&P Assessment and Plan (1) Chest pain: Code(s): R07.9 - Chest pain, unspecified Status: Acute Assessment and Plan: Probably Noncardiac pain. Cannot exclude underlying angina but may also be GERD versus musculoskeletal also. He has ruled out for myocardial infarction. Outpatient Lexiscan stress test. (2) Atrial fibrillation: Code(s): I48.91 - Unspecified atrial fibrillation Status: Acute Assessment and Plan: New onset. Heart rate controlled on his usual metoprolol succinate 25 mg daily. Normal LV function with no significant valve disease. Continue low-dose aspirin. Reviewed anticoagulation with Xarelto, patient agreeable. TSH and T4 are normal Consider outpatient cardioversion but will defer this to Dr. Sheets. Low magnesium has been corrected (3) Coronary artery disease: Code(s): I25.10 - Atherosclerotic heart disease of [place] coronary artery without angina pectoris Status: Acute Assessment and Plan: Continue aspirin, high-dose statin, isosorbide mononitrate, metoprolol succinate (4) Hypertension: Code(s): I10 - Essential (primary) hypertension Status: Acute Assessment and Plan: Reasonably controlled (5) Hyperlipidemia: Code(s): E78.5 - Hyperlipidemia, unspecified Status: Acute Assessment and Plan: On high-dose statin (6) Hypersomnolence: Code(s): G47.10 - Hypersomnia, unspecified Status: Acute Assessment and Plan: Undoubtedly has sleep apnea and likely a contributor to his atrial fibrillation. Apnea link was highly suspicious of sleep apnea. Will follow-up as an outpatient. (7) CHF (congestive heart failure): Code(s): I50.9 - Heart failure, unspecified Status: Acute Assessment and Plan: Mild acute diastolic heart failure in possibly related to his new onset AFib. Diuresed well with 1 dose of Lasix. Subjective Date/time seen: 04/04/21 06:29 Interval history: Follow-up for acute diastolic CHF, CAD/CABG/Left anterior descending stent, noncardiac chest pain and new onset atrial fibrillation. Followed by Dr. Sheets. 04/03/2021 started on Xarelto. Heart rate was controlled without any AV ines blocking agents. Chest pain thought to be noncardiac. Magnesium replaced. Given 1 dose of IV furosemide. Outpatient Lexiscan recommended. Date of service 04/04/2021: Feels good and is eager for discharge. Telemetry shows heart rate is controlled, generally 70-100 beats per minute. Chest pain is resolved. Diuresed well,-1300 cc. Echo showed EF 60-65% but diastolic dysfunction. Review of Systems Constitutional: Constitutional: Denies fatigue ENT: Denies epistaxis Cardiovascular: Cardiovascular: Denies chest pain, Reports pedal edema, Reports leg edema and Denies lightheadedness Respiratory: Respiratory: Denies dyspnea Gastrointestinal: Gastrointestinal: Denies abdominal pain Genitourinary: Genitourinary: Denies dysuria Musculoskeletal: Musculoskeletal: Reports arthralgias (Chronic knee pain) Neurologic: Reports system reviewed and no additional complaints, except as documented Psychiatric: Psychiatric: Reports no additional psychiatric complaints Exam Narrative: Pleasant smiling man sitting in chair, asking me if I was going to ?cut him loose. ? Const: General: comfortable and no acute distress HENMT: General nose exam: no epistaxis Eyes: EOM: EOMs intact bilaterally Neck: Neck: supple Resp: Effort & Inspection: normal respiratory effort Auscultation: clear to auscultation bilaterally Cardio: Rate: regular rate Rhythm: abnormal rhythm irregularly irregular Heart sounds: no murmurs GI: GI Palp: Yes Soft to palpation and No Tenderness to palpation present (GI) Skin: General skin exam: No normal color Other: Hyperpigmentation of lower extremities Neuro: Cognition (Neuro): normal cognition Speech: normal speech Ex
[2021-04-04] MEDS: TAMSULOSIN HCL 0.4 MG CAPSULE PO (09:40)
[2021-04-04] MEDS: ISOSORBIDE MONONITRATE 60 MG TAB.ER.24H PO ×2 (09:41→16:33)
[2021-04-04] MEDS: METOPROLOL SUCCINATE EXT REL 25 MG TABCR PO (09:41)
[2021-04-04] MEDS: ATORVASTATIN 40 MG TABLET 80 MG PO (09:42)
[2021-04-04] MEDS: PANTOPRAZOLE 40 MG TABLET PO ×2 (09:42→16:33)
[2021-04-04] MEDS: ASPIRIN 81 MG ENTERIC TABLET PO (09:43)
[2021-04-04 10:17] LABS: Hematocrit 48.8 % (42.0-52.0); Hemoglobin 16.6 g/dL (14.0-18.0); Mean Corpuscular Hemoglobin 31.7 pg (26-34); Mean Corpuscular Volume 93.1 fl (80-100); Mean Platelet Volume 10.7 fl (7.4-10.4); Platelet Count Result 228 k/mm3 (150-375); Red Blood Count 5.24 M/mm3 (4.6-6.20); Red Cell Distribution Width 13.6 % (11.5-14.5); White Blood Count 8.4 K/mm3 (4.5-10.0)
[2021-04-04 10:31] LABS: Anion Gap 11 mmol/L (8-16); Blood Urea Nitrogen 15 mg/dL (9-20); Calcium 9.2 mg/dL (8.4-10.2); Carbon Dioxide 28 mmol/L (22-30); Chloride 98 mmol/L (98-107); Estimated CRCL calculation 64 ml/min; Estimated Glomerular Filt Rate > 60; Glucose 165 mg/dL (65-110); Magnesium 2.1 mg/dL (1.6-2.3); Sodium 137 mmol/L (137-145)
--- NOTE | 2021-04-04 12:53 | PM.IMPN ---
Progress Note: A&P Assessment and Plan (1) Chest pain: Code(s): R07.9 - Chest pain, unspecified Status: Acute Assessment and Plan: Patient reports nearly constant left anterior chest pressure since last Tuesday associated with mild shortness of breath. The discomfort he has been feeling may very well be related to atrial fibrillation which was found on EKG today or perhaps GI in etiology. I think cardiac etiology is less likely given the length of time he has had symptoms without changes in his EKG or troponin elevation. Given his cardiac history however it would be prudent to obtain Cardiology consultation. 04/04/21 12:53 04/03 Interval History: patient with history of coronary artery disease status post CABG presented emergency department with a complaint of chest pain seen by development editor, development editor does not suspect acute coronary syndrome rather patient most likely has musculoskeletal or GI pain, his [place] has ruled out with 3 sets of cardiac enzymes negative, and normal EKG, recommending outpatient stress test, patient does have a significant history gastritis currently on PPI will add Carafate, patient with a new onset atrial fibrillation with RVR rate is controlled with metoprolol p.o. 25 mg q.day, anticoagulated with Xarelto, cardiac echo is ordered will follow-up and further recommendation to follow will have a PT OT evaluate the patient. 04/04 Interval History: patient remains clinically stable his heart rate is controlled and metoprolol 25 mg q.day and being anticoagulated with Xarelto, cardiac echo is pending, patient states his GI symptoms have improved with addition Carafate, patient had apnea link last night will follow-up, and will benefit from sleep study, it is seen by Cardiology and further recommendation to follow. (2) Atrial fibrillation: Code(s): I48.91 - Unspecified atrial fibrillation Status: Acute Assessment and Plan: EKG shows atrial fibrillation which is a new diagnosis for the patient. He has no palpitations or fluttering however I suppose his discomfort with shortness of breath may be related to the rhythm. Check TSH and echocardiogram. He will receive a dose of Lovenox 1 milligram/kilogram and I suspect he will need to be on chronic anticoagulation given CHADS2-VASc score of 3. Screen for sleep apnea tonight. (3) Coronary artery disease: Code(s): I25.10 - Atherosclerotic heart disease of [place] coronary artery without angina pectoris Status: Acute Assessment and Plan: Continue statin, aspirin, beta-misael, and isosorbide. (4) Hypertension: Code(s): I10 - Essential (primary) hypertension Status: Acute Assessment and Plan: Blood pressures were reviewed and they are reasonably well controlled though diastolic is in the upper 90s. (5) Hyperlipidemia: Code(s): E78.5 - Hyperlipidemia, unspecified Status: Acute Assessment and Plan: Continue statin and check LFTs. Subjective Date/time seen: 04/04/21 12:53 04/03 Interval History: patient with history of coronary artery disease status post CABG presented emergency department with a complaint of chest pain seen by development editor, development editor does not suspect acute coronary syndrome rather patient most likely has musculoskeletal or GI pain, his [place] has ruled out with 3 sets of cardiac enzymes negative, and normal EKG, recommending outpatient stress test, patient does have a significant history gastritis currently on PPI will add Carafate, patient with a new onset atrial fibrillation with RVR rate is controlled with metoprolol p.o. 25 mg q.day, anticoagulated with Xarelto, cardiac echo is ordered will follow-up and further recommendation to follow will have a PT OT evaluate the patient. 04/04 Interval History: patient remains clinically stable his heart rate is controlled and metoprolol 25 mg q.day and being anticoagulated with Xarelto, cardiac echo is pending, patient stat
[2021-04-04] MEDS: RIVAROXABAN 20 MG TABLET PO (16:33)
--- NOTE | 2021-04-04 16:37 | PM.DS ---
DS: Admitting Diagnosis Discharge Date 04/04/2021 Admitting Diagnosis Chest pain DS: Discharge Diagnosis Discharge Diagnosis (1) Chest pain: Code(s): R07.9 - Chest pain, unspecified Status: Acute Assessment and Plan: Patient reports nearly constant left anterior chest pressure since last Tuesday associated with mild shortness of breath. The discomfort he has been feeling may very well be related to atrial fibrillation which was found on EKG today or perhaps GI in etiology. I think cardiac etiology is less likely given the length of time he has had symptoms without changes in his EKG or troponin elevation. Given his cardiac history however it would be prudent to obtain Cardiology consultation. 04/04/21 12:53 04/03 Interval History: patient with history of coronary artery disease status post CABG presented emergency department with a complaint of chest pain seen by nurse practitioner hospitalist, nurse practitioner hospitalist does not suspect acute coronary syndrome rather patient most likely has musculoskeletal or GI pain, his [place] has ruled out with 3 sets of cardiac enzymes negative, and normal EKG, recommending outpatient stress test, patient does have a significant history gastritis currently on PPI will add Carafate, patient with a new onset atrial fibrillation with RVR rate is controlled with metoprolol p.o. 25 mg q.day, anticoagulated with Xarelto, cardiac echo is ordered will follow-up and further recommendation to follow will have a PT OT evaluate the patient. 04/04 Interval History: patient remains clinically stable his heart rate is controlled and metoprolol 25 mg q.day and being anticoagulated with Xarelto, cardiac echo is pending, patient states his GI symptoms have improved with addition Carafate, patient had apnea link last night will follow-up, and will benefit from sleep study, it is seen by Cardiology and further recommendation to follow. (2) Atrial fibrillation: Code(s): I48.91 - Unspecified atrial fibrillation Status: Acute Assessment and Plan: EKG shows atrial fibrillation which is a new diagnosis for the patient. He has no palpitations or fluttering however I suppose his discomfort with shortness of breath may be related to the rhythm. Check TSH and echocardiogram. He will receive a dose of Lovenox 1 milligram/kilogram and I suspect he will need to be on chronic anticoagulation given CHADS2-VASc score of 3. Screen for sleep apnea tonight. (3) Coronary artery disease: Code(s): I25.10 - Atherosclerotic heart disease of [place] coronary artery without angina pectoris Status: Acute Assessment and Plan: Continue statin, aspirin, beta-misael, and isosorbide. (4) Hypertension: Code(s): I10 - Essential (primary) hypertension Status: Acute Assessment and Plan: Blood pressures were reviewed and they are reasonably well controlled though diastolic is in the upper 90s. (5) Hyperlipidemia: Code(s): E78.5 - Hyperlipidemia, unspecified Status: Acute Assessment and Plan: Continue statin and check LFTs. DS: Summary Hospital Course Reason for hospitalization: Chief Complaint: Chest pain. Narrative: This is a 76-year-old male with coronary artery disease status post CABG in 1994, hypertension, and hyperlipidemia who presented to the emergency department earlier today from home for evaluation of chest pain since Tuesday. Patient describes intermittent angina over the years that he is still able to be quite active including 0.5 to 1 mi walk several times a week without issue. Since this past Tuesday, however, he has had nearly constant left anterior chest pressure associated with mild shortness of breath. He does suffer from reflux and admits that on occasion he has a difficult time differentiating between chest pain or discomfort related to his GERD. So far he has had 2 negative troponins and his EKG has not shown any significant ST segment changes though his EKG shows a
--- NOTE | 2021-04-04 17:43 | PC.NURSE ---
Patient discharged to home at 1735. Education was provided on medications and follow-up visits. Patient had no further questions at this time.
== END 2021-04-04 17:35 | disposition home or self-care (01) ==
LOC: ANHED 17:02 → ANHIMU 04-03 11:54
PROVIDERS: Emergency Medicine; Internal Medicine Cardiovascular Disease; Physician Assistant; Admitting Provider Internal Medicine; Emergency Provider Emergency Medicine; Visit Provider Family Medicine
DX: R07.89 Other chest pain (principal); R06.02 Shortness of breath; E78.5 Hyperlipidemia, unspecified; G47.30 Sleep apnea, unspecified; I48.91 Unspecified atrial fibrillation; I25.10 Atherosclerotic heart disease of native coronary artery without angina pectoris; I25.2 Old myocardial infarction; I11.0 Hypertensive heart disease with heart failure; I50.9 Heart failure, unspecified; K21.9 Gastro-esophageal reflux disease without esophagitis; E66.01 Morbid (severe) obesity due to excess calories; Z95.1 Presence of aortocoronary bypass graft; Z68.41 Body mass index [BMI] 40.0-44.9, adult
CPT/HCPCS: 36415; 71046; 80048; 80076; 83735; 83880; 84436; 84443; 84484; 85025; 85027; 85610; 85730; 93005; 93306; 94762; 96365; 96366; 96372; 96375; 99285; A9270; G0378; J1650; J1940; J3475; Q9957

== ENCOUNTER 2021-05-06 01:03 | Day surgery (SDC) | payer MEDICARE, SELFPAY ==
[2021-05-05 10:09] VITALS: BMI 42.0
--- NOTE | 2021-05-06 11:00 | ECG_ITS ---
Measurements Intervals [place] Rate: 84 P: [place]: 0 QRS: 1 QRSD: 105 T: 120 QT: 366 QTc: 434 Interpretive Statements ATRIAL FIBRILLATION BORDERLINE T WAVE ABNORMALITY- LAT/HIGH LAT LEADS ABNORMAL ECG Electronically Signed On 05-06-2021 12:01:55 CDT by Vj Avila D.O.
[2021-05-06 11:55] VITALS: BP 133/83; PULSE 89; RESP 13; TEMP 36.3; O2SAT 94
--- NOTE | 2021-05-06 12:00 | ECG_ITS ---
Measurements Intervals [place] Rate: 74 P: 38 WI: 195 QRS: 1 QRSD: 104 T: 43 QT: 331 QTc: 368 Interpretive Statements SINUS RHYTHM NONSPECIFIC T-WAVE ABNORMALITY- INF/LAT LEADS BASELINE ARTIFACT- I, II, AVR, AVL, AVF BORDERLINE ECG Electronically Signed On 05-06-2021 12:49:39 CDT by Vj Avila D.O.
[2021-05-06 12:07] LABS: Anion Gap 7 mmol/L (8-16); Blood Urea Nitrogen 13 mg/dL (9-20); Calcium 9.4 mg/dL (8.4-10.2); Carbon Dioxide 28 mmol/L (22-30); Chloride 105 mmol/L (98-107); Estimated CRCL calculation 63 ml/min; Estimated Glomerular Filt Rate > 60; Glucose 119 mg/dL (65-110); Magnesium 1.7 mg/dL (1.6-2.3); Potassium 4.1 mmol/L (3.4-5.0); Sodium 140 mmol/L (137-145)
[2021-05-06 12:35] VITALS: BP 103/73; PULSE 79; RESP 15; O2SAT 98
[2021-05-06 12:50] VITALS: BP 110/76; PULSE 79; RESP 20; O2SAT 94
[2021-05-06 13:05] VITALS: BP 122/84; PULSE 72; RESP 22; O2SAT 94
[2021-05-06 13:15] VITALS: BP 122/76; PULSE 72; RESP 17; O2SAT 96
[2021-05-06 13:30] VITALS: BP 110/81; PULSE 72; RESP 17; O2SAT 96
--- NOTE | 2021-05-06 13:35 | WPDCARDVER ---
Cardioversion Cardioversion Date of procedure: 05/06/21 Procedure: Elective electrical cardioversion Pre-op diagnosis: Atrial fibrillation Post-op diagnosis: same Indications: Atrial fibrillation Description of procedure: Brief history present illness: Patient is a pleasant 76-year-old male with a history of prior CABG, obesity, hypertension, untreated ASHLEY and a more recent diagnosis of atrial fibrillation referred for elective electrical cardioversion in attempt to restore sinus rhythm. He has been compliant with systemic anticoagulation without interruption for at least 4 weeks. Therefore, transesophageal echocardiographic guidance was not warranted. Procedure in detail: After verbal and written informed consent was obtained the patient risks, benefits, and alternatives explained in detail the patient agreed to proceed with the plan of care as outlined above. Patient was evaluated at bedside in the [facility] room. On examination, neck was supple with normal range of motion, no restrictions to opening of the oral cavity, jaw angle and posterior hypopharynx was clear. Lungs were clear to auscultation. Patient was placed in appropriate 30 to 45 degree angle in a supine position. Patient was monitored throughout the study with telemetry, oxygen saturation, end-tidal CO2 monitoring, blood pressure, heart rate, and respirations. Anterior and posterior defibrillator pads placed in the appropriate positions. After confirmation of adequate sedation electrical cardioversion was carried out without complication. Patient tolerated the procedure well without difficulty. Sedation: Moderate Sedation/Anesthesia administration: Patient denied previous intolerance or complications with anesthesia/sedation. Please see Anesthesiology documentation for details and protocols of sedation administration. There were no other issues or complications and patient tolerated the procedure well. Findings: Elective electrical cardioversion: After confirmation of adequate sedation and persistence of atrial fibrillation, 200 joules synched biphasic energy x1 was delivered with immediate yazdanism of sinus rhythm. Twelve lead EKG was obtained postprocedure confirming sinus rhythm. Complications: None Conclusion: Successful yazdanism of sinus rhythm status post 200 joules synched biphasic energy x1. Recommendations: Continue systemic anticoagulation indefinitely but particularly without interruption for at least the next 30 days post cardioversion.
--- NOTE | 2021-05-06 14:16 | SUR.PHASEII ---
Discharge instructions reviewed with patient with stated understanding. Iv removed catheter intact. Pt instructed on scheduled follow up appointments with stated understanding. Discharged via wheelchair to personal vehicle with driving.
== END 2021-05-06 14:00 | disposition home or self-care (01) ==
PROVIDERS: Visit Provider Internal Medicine Cardiovascular Disease
PROC: 5A2204Z Restoration of Cardiac Rhythm, Single (ICD-10-PCS; principal; 2021-05-06 12:30)
DX: I48.19 Other persistent atrial fibrillation (principal); I10 Essential (primary) hypertension; I25.10 Atherosclerotic heart disease of native coronary artery without angina pectoris; G47.33 Obstructive sleep apnea (adult) (pediatric); Z95.1 Presence of aortocoronary bypass graft; E66.01 Morbid (severe) obesity due to excess calories; Z68.41 Body mass index [BMI] 40.0-44.9, adult; Z95.5 Presence of coronary angioplasty implant and graft; I25.2 Old myocardial infarction; Z79.01 Long term (current) use of anticoagulants
CPT/HCPCS: 36415; 80048; 83735; 92960; 93005; J2704

== ENCOUNTER 2021-05-14 11:27 | Outpatient (CLI) | payer MEDICARE, SELFPAY ==
--- NOTE | 2021-06-03 15:03 | WPDSLEEPSTUD ---
Sleep Study Date of Study: 05/14/21 <Jenny Dave, DO - Last Filed: 06/03/21 16:03> Ordering Provider: Eliza Aguilar, ADVISORY INTERN <Jenny Dave DO - Last Filed: 06/03/21 16:03> Interpreting Physician: Jenny Dave DO <Jenny Dave, DO - Last Filed: 06/03/21 16:03> Sleep Study Type: Polysomnogram <Jenny Dave DO - Last Filed: 06/03/21 16:03> Height: 1.68 m <Jenny Dave DO - Last Filed: 06/03/21 16:03> Weight: 120.202 kg <Jenny Dave DO - Last Filed: 06/03/21 16:03> Body Mass Index: 42.7 <Jenny Dave DO - Last Filed: 06/03/21 16:03> Neck Circumference (inches): 20 <Jenny Dave DO - Last Filed: 06/03/21 16:03> Bowler: 10 <Jenny Dave DO - Last Filed: 06/03/21 16:03> Reason for Sleep Study The patient has atrial fibrillation and has multiple risk factors for ASHLEY. <Jenny Dave DO - Last Filed: 06/03/21 16:03> Sleep History The patient is a 76 y/o male with persistent atrial fibrillation, HTN, CAD, depression, and GERD that had a Split Study ordered by his desk attendant for his atrial fibrillation. The patient states that he frequently awakens from sleep short of breath. He occasionally awakens at night with heartburn, belching or cough. He occasionally snores but it is rarely loud enough that others complain. He occasionally has trouble sleeping when he has a cold. He occasionally wakes up gasping for air throughout the night. He occasionally has breathing problems at night observed by others. He rarely sweats excessively at night. He occasionally notices heart palpitations or irregular heartbeats during the night. He occasionally falls asleep during the day but never while driving. He denies sleep paralysis and cataplexy. He occasionally experiences vivid dreamlike scenes upon awakening or falling asleep. He rarely has nightmares. He occasionally has thoughts racing through his mind. He rarely feels sad or depressed. He occasionally feels anxious. He denies noticing parts of his body jerk. He denies kicking throughout the night. He denies crawling and aching feelings in his legs as well as leg pain during the night. He denies grinding his teeth during sleep awakening with jaw pain in the morning. He denies being bothered by pain during the day and being awakened by pain during the night. He occasionally wakes up feeling stiff in the morning with sore and achy muscles. He goes to bed between 10 and 11:00 p.m. on both weekdays and weekends. It takes him 1 hour to fall asleep. He wakes up 1-2 times throughout the night to urinate. It takes him 20-30 minutes to fall back asleep. He wakes up between 6 and 8:00 a.m. on both weekdays and weekends. He typically gets between 8 and 10 hours of sleep per night. He will stay in bed for 10-30 minutes after awakening in the morning. He currently lives with his . He does not consume any caffeinated beverages within 2 hours of bedtime. He does not engage in physical exercise before bedtime. He does watch television before falling asleep. He does take naps in the afternoon or the evening and they are refreshing. He drinks 3 cups of coffee in the morning per day. He drinks 2-3 beers per week. He denies tobacco and recreational drug use. <Jenny Dave DO - Last Filed: 06/03/21 16:03> [facility] Past Medical History Medical History: Medical History Benign prostatic hyperplasia Coronary artery disease Gastroesophageal reflux disease History of coronary artery disease [place] 1994, CABG 1994, LAD stent at a later date Hyperlipidemia Hypertension <Jenny Dave DO - Last Filed: 06/03/21 16:03> Surgical History Surgical History: Surgical History History of appendectomy History of bilateral knee rep
[2021-06-03 15:26] VITALS: BMI 42.7
== END 2021-05-15 07:32 | disposition home or self-care (01) ==
LOC: ANHCSM 11:27
PROVIDERS: Visit Provider Nurse Practitioner Adult Health
DX: G47.10 Hypersomnia, unspecified (principal); I48.91 Unspecified atrial fibrillation
CPT/HCPCS: 95810

== ENCOUNTER 2021-07-27 08:19 | Outpatient (CLI) | payer MEDICARE, SELFPAY ==
--- NOTE | 2021-08-08 22:53 | WPDSLEEPSTUD ---
Sleep Study Date of Study: 07/27/21 <Jenny Dave DO - Last Filed: 08/10/21 16:09> Ordering Provider: Teja Wilkins APRN <Jenny Dave DO - Last Filed: 08/10/21 16:09> Interpreting Physician: Jenny Dave DO <Jenny Dave DO - Last Filed: 08/10/21 16:09> Sleep Study Type: CPAP Titration <Jenny Dave DO - Last Filed: 08/10/21 16:09> Height: 1.68 m <Jenny Dave DO - Last Filed: 08/10/21 16:09> Weight: 122.47 kg <Jenny Dave DO - Last Filed: 08/10/21 16:09> Body Mass Index: 43.5 <Jenny Dave DO - Last Filed: 08/10/21 16:09> Neck Circumference (inches): 20 <Jenny Dave DO - Last Filed: 08/10/21 16:09> [place]: 13 <Jenny Dave DO - Last Filed: 08/10/21 16:09> Reason for Sleep Study The patient had a PSG on 05/14/2021 that showed an AHI of 54.5. <Jenny Dave DO - Last Filed: 08/10/21 16:09> Sleep History The patient is a 76 y/o male with persistent atrial fibrillation, HTN, CAD, depression, and GERD that had a Split Study ordered by his patient transport orderly for his atrial fibrillation. The patient states that he frequently awakens from sleep short of breath. He occasionally awakens at night with heartburn, belching or cough. He occasionally snores but it is rarely loud enough that others complain. He occasionally has trouble sleeping when he has a cold. He occasionally wakes up gasping for air throughout the night. He occasionally has breathing problems at night observed by others. He rarely sweats excessively at night. He occasionally notices heart palpitations or irregular heartbeats during the night. He occasionally falls asleep during the day but never while driving. He denies sleep paralysis and cataplexy. He occasionally experiences vivid dreamlike scenes upon awakening or falling asleep. He rarely has nightmares. He occasionally has thoughts racing through his mind. He rarely feels sad or depressed. He occasionally feels anxious. He denies noticing parts of his body jerk. He denies kicking throughout the night. He denies crawling and aching feelings in his legs as well as leg pain during the night. He denies grinding his teeth during sleep awakening with jaw pain in the morning. He denies being bothered by pain during the day and being awakened by pain during the night. He occasionally wakes up feeling stiff in the morning with sore and achy muscles. He goes to bed between 10 and 11:00 p.m. on both weekdays and weekends. It takes him 1 hour to fall asleep. He wakes up 1-2 times throughout the night to urinate. It takes him 20-30 minutes to fall back asleep. He wakes up between 6-8:00 a.m. on both weekdays and weekends. He typically gets between 8 and 10 hours of sleep per night. He will stay in bed for 10-30 minutes after awakening in the morning. He currently lives with his . He does not consume any caffeinated beverages within 2 hours of bedtime. He does not engage in physical exercise before bedtime. He does watch television before falling asleep. He does take naps in the afternoon or the evening and they are refreshing. He drinks 3 cups of coffee in the morning per day. He drinks 2-3 beers per week. He denies tobacco and recreational drug use. <Jenny Dave DO - Last Filed: 08/10/21 16:09> [facility] Past Medical History Medical History: Medical History (Updated 08/08/21 @ 22:57 by Jenny Dave DO) Atrial fibrillation Benign prostatic hyperplasia Coronary artery disease Gastroesophageal reflux disease History of coronary artery disease [place] 1994, CABG 1994, LAD stent at a later date Hyperlipidemia Hypertension <Jenny Dave DO - Last Filed: 08/10/21 16:09> Surgical History Surgical History: Surgical History History of appendectomy History of bilateral knee r
[2021-08-10 16:09] VITALS: BMI 43.5
== END 2021-07-28 07:16 | disposition home or self-care (01) ==
LOC: ANHCSM 08:20
PROVIDERS: Visit Provider Nurse Practitioner Family
DX: G47.33 Obstructive sleep apnea (adult) (pediatric) (principal)
CPT/HCPCS: 95811

== ENCOUNTER 2021-08-17 14:02 | Outpatient (CLI) | payer MEDICARE, SELFPAY ==
--- NOTE | 2021-08-18 07:12 | WPDPFTINT ---
PFT Procedure Performed PFT Procedure Performed Spirometry with Pre/Post Bronchodilator Plethysmography (Lung Vol) Diffusing Cap (DLCO) Flow Vol Loop PFT Interpretation This is a pulmonary function test with pre and post-bronchodilator spirometry, plethysmography and diffusing capacity. The test was performed and results interpreted in accordance with the 2019 and 2005 ATS/ERS Task Force guidelines respectively using the Global Lung Function Initiative-2012 reference equations. Patient demonstrated good effort and cooperation. Reproducibility criteria were met. The quality of the pre bronchodilator spirometry maneuver was Grade A and post bronchodilator spirometry maneuver was Grade D. Findings: Spirometry:The contour of 2 out of 3 pre bronchodilator expiratory flow tracings demonstrates a mid expiratory notch and the contour of 1 out of 3 pre bronchodilator expiratory flow tracings is normal. The contour of 1 out of 4 post bronchodilator expiratory flow tracings demonstrates a more pronounced mid expiratory notch, the contour of 2 out to 4 post bronchodilator tracings demonstrates a more pronounced expiratory plateau or knee contour and the contour of 1 out of 4 post bronchodilator expiratory flow tracings is normal. The contour of all 3 pre bronchodilator inspiratory flow tracings are normal. The contour of 3 out of 4 post bronchodilator inspiratory flow tracings are flattened and the contour of 1 out of 4 post bronchodilator inspiratory flow tracings was incomplete. The pre bronchodilator FVC is 3.63 L, 101% predicted. The pre bronchodilator FEV1 is 2.85 L, 105% predicted. The pre bronchodilator FEV1: FVC ratio 79%. The post bronchodilator FVC is 3.05 L, representing a 16% decrease. The post bronchodilator FEV1 is 2.46 L, representing a 14% decrease. The post bronchodilator FEV1: FVC ratio was 81%. Plethysmography: The total lung capacity is 5.53 L, 88% predicted. The functional residual capacity is 2.13 L, 64% predicted. The residual volume is 1.80 L, 78% predicted. Diffusing capacity: The diffusion capacity unadjusted for hemoglobin is 18.8, 80% predicted. The diffusing capacity adjusted for alveolar volume is 3.79, 94% predicted. Impression: The quality the post bronchodilator spirometry maneuvers was grade D making interpretation suspect. Collectively the contour of the expiratory flow tracing ranges from normal, to a notched pattern and to a knee pattern. 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 The knee pattern can be a normal variant or pathologic and has been attributed to a choke point section of the bronchial tree. The normal variant is more common in younger female patients, decreases with age and is more pronounced in the post bronchodilator efforts. The pattern has also been described with kyphosis, kyphoscoliosis, central obstructing mass, and post lung transplantation. The contour of the inspiratory flow tracing ranges from normal in the pre bronchodilator efforts to flattened in the post bronchodilator efforts. Flattening of the inspiratory flow tracing is seen with variable extrathoracic obstruction. This has been described with vocal cord paralysis, structural or functional vocal fold abnormalities, extrathoracic tracheomalacia, polychondritis, mobile tumors, and laryngomalacia. Clinical correlation is recommended. The spirometry is without evidence of an obstructive abnormality. There is no significant improvement after inhaling a single dose of albuterol. The lung volumes are normal. The diffusing capacity is normal. There are no prior studies for comparison
== END 2021-08-17 14:03 | disposition home or self-care (01) ==
PROVIDERS: Visit Provider Nurse Practitioner Family
DX: R06.02 Shortness of breath (principal)
CPT/HCPCS: 94060; 94726; 94729

== ENCOUNTER 2021-11-16 12:28 | Outpatient (CLI) | payer MEDICARE, SELFPAY ==
--- NOTE | 2021-11-16 14:42 | PCRCNOTE ---
SPOKE TO LAURA BALL IN REGARDS TO CHANGING ORDER TO REPEAT SPIROMETRY PRE/POST ONLY, WITH A SIX MINUTE WALK.
--- NOTE | 2021-11-17 11:34 | WPDSIXMINUTE ---
Six Minute Walk Procedure Procedure Performed Pulmonary Stress Test (6 min walk) Six Minute Walk This 6 minute walk test was carried out with the patient breathing ambient air. The baseline pre walk oxyhemoglobin saturation was 95%. The patient walked 1100 ft with no pauses during testing. During the walk the oxyhemoglobin saturation remained over 93%. The perceived dyspnea was 0 on Phyllis scale at baseline and increased to 2 at the end of the test. Impression: No evidence of oxyhemoglobin desaturation on this testing.
--- NOTE | 2021-11-17 11:36 | WPDPFTINT ---
PFT Procedure Performed PFT Procedure Performed Spirometry with Pre/Post Bronchodilator PFT Interpretation Spirometry showed normal expiratory flow rates and a normal FEV1 to FVC ratio of 77%. Following administration of a bronchodilator there was no significant change in the expiratory flow rates. The flow volume loop is unremarkable. In comparison to the previous study in August of 2021, the pre bronchodilator forced vital capacity is now lower by approximately 0.4 L and the pre bronchodilator FEV1 is also lower by approximately 0.3 L. Impression: Spirometry within normal range.
== END 2021-11-16 12:29 | disposition home or self-care (01) ==
LOC: ANHPFT 12:29
PROVIDERS: Visit Provider Nurse Practitioner Family
DX: R06.02 Shortness of breath (principal)
CPT/HCPCS: 94060; 94375; 94618

== ENCOUNTER 2022-02-03 10:51 | Emergency (ER) | payer MEDICARE, SELFPAY ==
--- NOTE | ~2022-02-03 | XR_ITS ---
EXAMINATION: XR chest 2V DATE: 02/03/2022 13:07 INDICATION: Shortness of breath. Cough. COVID-19 positive. TECHNIQUE: Frontal and lateral views of the chest were obtained. COMPARISON: Chest views 04/02/2021, chest CT 05/31/2020 FINDINGS: A calcified left lung nodule is consistent with old granulomatous disease. No pleural effus ion or pneumothorax. The heart size is normal. Median sternotomy wires and mediastinal surgical clips are seen, likely from prior coronary artery bypass grafting. There is a chronic compression fracture of L1. IMPRESSION: 1. No acute cardiopulmonary disease. Reviewed, dictated and finalized at location A.
--- NOTE | 2022-02-03 11:36 | ECG_ITS ---
Measurements Intervals [place] Rate: 86 P: IN: 0 QRS: 1 QRSD: 115 T: 51 QT: 399 QTc: 477 Interpretive Statements ATRIAL FIBRILLATION NONSPECIFIC INTRAVENTRICULAR CONDUCTION DELAY NONSPECIFIC T-WAVE ABNORMALITY ABNORMAL ECG COMPARED TO ECG 05/06/2021 12:30:18 ATRIAL FIBRILLATION NOW PRESENT Electronically Signed On 02-03-2022 12:59:33 CDT by Christiano Sheets M.D.
[2022-02-03 11:41] VITALS: BP 132/83; PULSE 68; RESP 18; TEMP 36.4; O2SAT 96
[2022-02-03 11:49] LABS: Basophils Absolute Auto 0.1 K/mm3 (0.0-0.1); Basophils Percent Auto 1.2 % (0.2-1.2); Eosinophils Absolute Auto 0.2 K/mm3 (0-0.3); Eosinophils Percent Auto 3.1 % (0-4.4); Hemoglobin 15.6 g/dL (14.0-18.0); Immature Granulocyte Absolute 0.02 K/mm3 (0.00-0.031); Immature Granulocyte Percent A 0.4 % (0-0.5); Lymphocytes Absolute Auto 1.54 K/mm3 (0.9-3.2); Mean Corpuscular HGB Conc 33.9 g/dl (32-36); Mean Corpuscular Hemoglobin 31.2 pg (26-34); Mean Platelet Volume 10.5 fl (7.4-10.4); Monocytes Percent Auto 21.6 % (2.6-8.5); Neutrophils Percent Auto 41.7 % (45.5-73.1); Platelet Count Result 190 k/mm3 (150-375); White Blood Count 4.8 K/mm3 (4.5-10.0)
[2022-02-03 12:01] LABS: Alanine Aminotransferase 29 U/L (6-50); Alkaline Phosphatase 56 U/L (38-126); Anion Gap 10 mmol/L (8-16); Aspartate Amino Transferase 33 U/L (17-59); Bilirubin,Total 0.7 mg/dL (0.2-1.3); Blood Urea Nitrogen 10 mg/dL (9-20); Calcium 8.8 mg/dL (8.4-10.2); Carbon Dioxide 27 mmol/L (22-30); Chloride 98 mmol/L (98-107); Estimated CRCL calculation 71 ml/min; Estimated Glomerular Filt Rate > 60; Glucose 105 mg/dL (65-110); Potassium 3.4 mmol/L (3.4-5.0); Sodium 135 mmol/L (137-145)
--- NOTE | 2022-02-03 14:19 | ED.URI ---
HPI - URI/Sore Throat General Chief Complaint: Upper Respiratory Infection Stated Complaint: Sob, covid positive Time Seen by Provider: 02/03/22 13:44 Source: patient Mode of arrival: ambulatory Limitations: no limitations History of Present Illness HPI Narrative: This is a 76 year old male that presents to the ER for cold symptoms present over the last 4 days. Reports cough, fever, sore throat, shortness of breath. Also reports chest pain with coughing. Patient has had a COVID vaccine and booster. Denies nausea or vomiting. Related Data Home Medications Medication Instructions Recorded Confirmed isosorbide mononitrate 60 mg 60 mg PO BID 01/25/20 07/13/21 tablet,extended release 24 hr pantoprazole 40 mg tablet,delayed 40 mg PO BID 01/25/20 07/13/21 release tamsulosin 0.4 mg capsule (Flomax) 0.4 mg PO DAILY 01/25/20 07/13/21 aspirin 81 mg tablet 81 mg PO DAILY 04/02/21 07/13/21 atorvastatin 80 mg tablet 80 mg PO DAILY 04/02/21 07/13/21 buspirone 5 mg tablet 5 mg PO Q8H 04/02/21 07/13/21 ibuprofen 800 mg tablet 800 mg PO Q8H PRN Pain 04/02/21 07/13/21 melatonin 5 mg tablet 5 mg PO HS PRN Sleep 04/02/21 07/13/21 metoprolol succinate 25 mg 25 mg PO DAILY 04/02/21 07/13/21 tablet,extended release 24 hr nitroglycerin 0.4 mg sublingual 0.4 mg sublingual Q5MIN PRN Cold 04/02/21 07/13/21 tablet Sores Allergies Allergy/AdvReac Type Severity Reaction Status Date / Time No Known Allergies Allergy Verified 02/03/22 13:42 Review of Systems Review of Systems: CONSTITUTIONAL: Reports fever ENT: Reports congestion, sore throat CARDIOVASCULAR: Reports chest pain RESPIRATORY: Reports cough and dyspnea. All systems reviewed & are unremarkable except as noted in HPI and below [facility] Past Medical History Medical History (Updated 02/03/22 @ 16:16 by Camila Cloud PA-C) Atrial fibrillation Benign prostatic hyperplasia Coronary artery disease Gastroesophageal reflux disease History of coronary artery disease [place] 1994, CABG 1994, LAD stent at a later date Hyperlipidemia Hypertension Surgical History Surgical History History of appendectomy History of bilateral knee replacement History of cataract extraction History of colonoscopy with polypectomy History of coronary artery bypass graft (1994) [place] to the Left anterior descending, T graft supplying the OM2 and PDA. History of heart artery stent To left anterior descending. History of sinus surgery Family History Family History Mother Heart disease Father Heart disease Social History Social History Social History: The patient is and lives with his in [place]. Nonsmoker. No alcohol or illicit substance abuse. He designates his , Dory Arana, as his surrogate decision maker and he wishes to be a full code. Smoking status: Never smoker Alcohol intake: never Substance use: never Exam Narrative: GENERAL: Well-appearing, well-nourished, and in no acute distress. HEAD: Normocephalic, atraumatic. EYES: EOMI. ENT: Nares clear, no rhinorrhea or epistaxis. Mucous membranes moist. Oropharynx without tonsillar hypertrophy exudate or other lesions. Bilateral TMs pearly bell non-bulging NECK: Supple. No adenopathy or masses. CHEST: Clear to auscultation. No respiratory distress. No wheezes rales or rhonchi HEART: Regular rate and rhythm. No murmur heard. Normal peripheral pulses. EXTREMITIES: Normal range of motion. No edema. SKIN: Warm, dry, no rash. NEURO: No focal deficits. Alert and oriented x3. PSYCH: Normal mood and affect Course Vital Signs Vital signs: Vital Signs Temperature 97.6 F 02/03/22 11:41 Pulse Rate 68 02/03/22 11:41 Respiratory Rate 18 02/03/22 11:41 Blood Pressure 132/83 02/03/22 11:41 Pulse Oximetry 96 02/03/22 11:41 Oxy
[2022-02-03 16:00] LABS: INR 1.7
[2022-02-03 16:01] LABS: Partial Thromboplastin Time 37.5 SECONDS (22.3-36.8)
[2022-02-03 16:04] LABS: D Dimer < 0.27 ug/mL (<0.48)
[2022-02-03 16:08] LABS: Troponin I < 0.012 ng/mL (0.000-0.034)
[2022-02-03 16:24] VITALS: BP 130/72; PULSE 72; RESP 18; O2SAT 99
== END 2022-02-03 16:25 | disposition home or self-care (01) ==
PROVIDERS: Physician Assistant; Emergency Provider Emergency Medicine
DX: U07.1 COVID-19 (principal); I48.91 Unspecified atrial fibrillation; I25.10 Atherosclerotic heart disease of native coronary artery without angina pectoris; K21.9 Gastro-esophageal reflux disease without esophagitis; I10 Essential (primary) hypertension; E78.5 Hyperlipidemia, unspecified
CPT/HCPCS: 36415; 71046; 80053; 84484; 85025; 85380; 85610; 85730; 93005; 99284

== ENCOUNTER 2024-12-07 10:19 | Outpatient (CLI) | payer MEDICARE, SELFPAY ==
--- OUTSIDE RECORDS SUMMARY | 2024-12-07 10:29 | XMS_ITS | Data Portability ---
Author Organization [facility], Main Office Address [address] [place] [address] Care Team Providers Care Interior Assemblies Developer Prover Name Role Phone ERIN SMITH Primary Care Provider ERIN SMITH Referring Provider Assessment Encounter Date Assessment Date Assessment LastModified by Organization Details LastModified Time 03/31/2023 03/31/2023 Patient has ongoing right ankle pain mostly in the lateral portion of the joint, he does have spurring off the distal tip of the medial and lateral malleoli from likely remote injuries many years ago with ankle sprains. He has had no acute injuries, we talked about fact he does have degenerative change medially and laterally we talked about treatment options today in detail he has orthotics that he uses for his flat feet I have advised him we could try a course of physical therapy he wants to proceed we will get him set up with this. We will get him a course of oral prednisone also and he wanted to try shot of cortisone therefore under sterile conditions I injected the patient's right ankle into the lateral portion of the joint at the point of maximal pain and tenderness with 2 cc 0.5% ropivacaine and 10 mg of Kenalog. Patient tolerated the procedure well. I will see the patient back in 6 weeks to see what impact treatment has had. He voiced understanding agrees above plan call for any further problems difficulties or questions. He will continue with the Voltaren gel ice and activity modification as necessary Not available 03/31/2023 16:11:12 05/12/2023 05/12/2023 The patient has essentially resolved right ankle pain due to mild primary osteoarthritis he gets minor twinges here and there but states he is back to doing all his normal activities he is quite pleased with the treatment results. I have told him if his pain flares up he can pickle pumper the oral prednisone pills or start physical therapy at any time. If his pain gets severe enough or persistent in the future he can come back we could try another shot of cortisone hopefully he will stay calm for now. He voiced understanding agrees above plan will see him back as needed he will call for any further problems difficulties or questions. Not available 05/12/2023 16:13:27 12/01/2023 12/01/2023 The patient has pain and tenderness in the right ankle laterally he has some mild osteoarthritis and posttraumatic changes from previous multiple ankle sprains. We talked about treatment options in detail today he wanted proceed with cortisone again this worked well for him in the past about 8-9 months ago. Under sterile conditions at his request I injected the patient's right ankle joint into the lateral gutter with 2 cc 0.5% bupivacaine and 10 mg of Kenalog. Patient tolerated the procedure well. I will see him back as needed he will try to avoid the activities that has been aggravating his ankle recently. He voiced understanding agrees above plan will call for any further problems difficulties or questions. Not available 12/01/2023 11:05:39 04/10/2024 04/10/2024 Patient has chronic right ankle pain due to mild to moderate primary osteoarthritis mostly in the lateral gutter. The pain is mostly localized laterally. Shots of cortisone to give him good relief at his request under sterile conditions I injected the patient's right ankle into the lateral gutter with 2 cc of 0.5% bupivacaine and 10 mg of Kenalog. Patient tolerated procedure well. His x-rays show fairly stable osteoarthritis. If he decides he wants to try some oral prednisone he will call us for now we will see how the shot does. He can not take oral anti-inflammatory medication due the fact that he is on blood thinners. Voiced understanding agrees above plan he will call for any further problems difficulties or questions. We can do this again in 3 months if necessary. 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 We have talked about treatment options today he wanted proceed with the cortisone therefore under sterile conditions I injected the patient's right ankle on 2 the lateral gutter at the point of maximal pain with 2 cc 0.5% bupivacaine and 10 mg of Kenalog. Patient tolerated the procedure well. He also has plantar fasciitis of the right foot we talked about treatment options for that I demonstrated stretching program he needs to do he has the shoe inserts he will continue with those. At his request under sterile conditions I injected the patient's right heel at the point of maximal tenderness at the plantar fascial insertion with 2 cc of 0.5% bupivacaine and 10 mg of Kenalog. The patient tolerated the procedure well. The patient is on blood thinners so I can not give him nonsteroidal anti-inflammatory medication we are going to see if this works instead he voiced understanding and agreed with the above plan call for any further problems difficulties or questions. I will see him back in 6 weeks or so if necessary. Not available 09/18/2024 14:44:03 Plan of Treatment Reminders Order Date Submit Date Provider Last Modified By Organization Details Last Modified Time Details Appointments None recorded. Lab None recorded. Referral physical therapist referral - Please contact patient to schedule 2022 023 [facility], [address] [place] [address], [place], [address], 3 16:10:36 Procedures injection/ aspiration joint/burs a (PROC) 2024 025 [email or web address] In-Office Order, Internal Use Only DO Not Attach Compendium DO Not Attach Compendium, Do Not Delete/merge, [id number] 14:40:33 injection/ aspiration joint/burs a (PROC) - in office procedure, administer ed by provider 2024 025 In-Office Order, Internal Use Only DO Not Attach Compendium DO Not Attach Compendium, Do Not Delete/merge, [id number] 5 14:40:33 injection/ aspiration joint/burs a (PROC) 2023 024 [email or web address] In-Office Order, Internal Use Only DO Not Attach Compendium DO Not Attach Compendium, Do Not Delete/merge, [id number] 14:59:29 injection/ aspiration joint/burs a (PROC) 2023 024 [email or web address] In-Office Order, Internal Use Only DO Not Attach Compendium DO Not Attach Compendium, Do Not Delete/merge, [id number] 10:57:19 injection/ aspiration joint/burs a (PROC) - in office procedure, administer ed by provider 2022 023 [email or web address] In-Office Order, Internal Use Only DO Not Attach Compendium DO Not Attach Compendium, Do Not Delete/merge, [id number] 3 15:49:11 Surgeries None recorded. Imaging XR, ankle 2023 024 [facility] [place], [address], [place], [address], 4 15:50:47 XR, ankle 2022 023 [facility] [place], [address], [place], [address], 3 16:00:17 Medication Orders bupivacain e HCl 0.5 % (5 mg/mL) injection solution 2024 025 [email or web address], [address], [place], [place], [id number], 5 16:05:10 Kenalog 10 mg/mL suspension for injection 2024 025 [email or web address], [address] [place], [place], [id number], 5 16:05:10 Kenalog 10 mg/mL suspension for injection 2024 025 [facility] #86609, [address] , [place], [place], [id number], 5 16:05:10 bupivacain e HCl 0.5 % (5 mg/mL) injection solution 2024 025 [facility], [address], [place], [place], [id number], 5 16:05:10 bupivacain e HCl 0.5 % (5 mg/mL) injection solution 2023 024 [address] [facility], [address], [place], [place], [id number], 4 15:50:47 Kenalog 10 mg/mL suspension for injection [address] [facility]75580, [address], [place], [place], [id number], 4 15:50:47 bupivacain e HCl 0.5 % (5 mg/mL) injection solution 2023 024 [address], [address], [place], [place], [id number], 4 14:52:12 Kenalog 10 mg/mL suspension for injection 2023 024 [place] [address] [facility], [address], [place], [place], [id number], 4 14:52:51 Kenalog 10 mg/mL suspension for injection 2022 023 [place] [address] [facility]103, [address], [place], [place], [id number], 4 14:52:51 ropivacain e (PF) 5 mg/mL (0.5 %) injection solution [address] [facility]48747, [address], [place], [place], [id number], 14:54:04 prednisone 10 mg tablets in a dose pack [address] [facility] #13461, [address], [place], [place], [id number], 14:53:51 Patient TargetsNo targets recorded. Patient InstructionsNo instructions recorded. Reason for Referral Physical Therapist Referral for Pain of right ankle joint Please contact patient to schedule Referring Physician: Jose Gonsalez, Orthopedic Surgery, Encounter Date: 03/31/2023 Results Created Date Observation Date Name Description Value Unit Range Abnormal Flag Note LastModifiedBy Organization Detail LastModifiedTime 03/31/20 23 XR, ankle No observ ation record ed. [facility] [place] [address] [facility] [address], [place], [address], 03/31/2023 16:12:51 04/10/20 24 XR, ankle No observ ation record ed. [facility] [place] [address] [facility] [address], [place], [address], 04/10/2024 15:19:58 Result Notes None recorded. Problems Name Problem SNOMED Code Status Onset Date Resolution Date Notes Provider Name and Address Organization Details Recorded Time Disorder of shoulder 355905512 Active Not Available [facility] 3 12:50:24 History of total knee arthroplas ty 1928780900422 Active 2018 Not Available [employer] 3 12:50:24 Localized, primary osteoarthr itis of the shoulder region 875829941 Active Not Available [facility] 3 12:50:24 Partial thickness rotator cuff tear 695208081 Active Not Available [facility] 12:50:25 Osteoarthr itis of knee 593690565 Active Not Available [facility] 12:50:25 Pain of right ankle joint 1799354422226 9106 Active 2022 [facility], [facility] [employer] [facility] 3 15:16:31 Localized, primary osteoarthr itis of the ankle and/or foot 556984365 Active 2022 IG[facility] [address], [place], [address] , [facility] [employer] [facility] 3 16:13:21 Localized, primary osteoarthr itis of the ankle and/or foot 703075911 Active 2022 [facility] [address], [place], [address] , [facility] [employer] [facility] 3 16:13:34 Plantar fasciitis of right foot 8990681371318 9101 Active 2024 Alyson Sunshine oakes, [facility] [employer] [facility] 5 14:37:33 Problem Notes None recorded. Procedures Surgical History Date Name Laterality Status Provider Name and Address Organization Details Recorded Time Knee Surgery completed [facility] 03/31/2023 15:26:35 Bypass completed [facility] 03/31/2023 15:26:58 Imaging Results None recorded. Procedure Notes None recorded. Medical Equipment None Reported. Allergies No known drug allergies Medications Name Sig Start Date Stop Date Status Note LastModified by Organization Details LastModified Time furosemide 40 mg tablet active Not Available Not Available Not Available buspirone 5 mg tablet Take 1 tablet twice a day by oral route. 04/10 completed Not Available Not Available Not Available atorvastati n 80 mg tablet Take 1 tablet every day by oral route. active Not Available Not Available No t Available prednisone 10 mg tablet 04/10 completed Not Available Not Available Not Available doxycycline hyclate 100 mg capsule 04/10 completed Not Available Not Available Not Available clarithromy damari 250 mg tablet 03/14 completed Not Available Not Available Not Available azithromyci n 250 mg tablet THE 2 TABLET BY MOUTH TODAY AND 1 TABLET ON DAYS 2-5 04/10 completed Not Available Not Available Not Available ibuprofen 800 mg tablet 03/31 completed Not Available Not Available Not Available hydrocodone 5 mg-acetamin ophen 325 mg tablet 03/21 completed Not Available Not Available Not Available diltiazem CD 240 mg capsule,ext ended release 24 hr TK 1 T PO D UTD 05/27 completed Not Available Not Available Not Available bupivacaine HCl 0.5 % (5 mg/mL) injection solution in office 2024 active Not Available Not Available Not Avai lable prednisone 20 mg tablet TAKE 3 TABLETS BY MOUTH DAILY FOR 3 DAYS THEN TAKE 2 TABLETS BY MOUTH DAILY FOR 3 DAYS THEN TAKE 1 TABLET BY MOUTH DAILY FOR 3 DAYS 04/10 completed Not Available Not Available Not Available metoprolol succinate ER 100 mg tablet,exte nded release 24 hr 03/31 completed Not Available Not Available Not Available potassium chloride ER 10 mEq tablet,exte nded release active Not Available Not Available Not Available acetaminoph en 300 mg-codeine 30 mg tablet TAKE 1 TABLET BY MOUTH EVERY 6 HOURS NEEDED FOR PAIN START AFTER SURGERY active Not Available Not Available No t Available clopidogrel 75 mg tablet active Not Available Not Available Not Available ciprofloxac in 500 mg tablet 04/10 completed Not Available Not Available Not Available prednisone 10 mg tablets in a dose pack Take 1 tab by mouth, 3 times a day for 3 daysTake 1 tab by mouth 2 times a day for 2 daysTake 1 tab by mouth once a day for 1 day 04/10 completed Not Available Not Available Not Available isosorbide mononitrate ER 60 mg tablet,exte nded release 24 hr active Not Available Not Available Not Available tamsulosin 0.4 mg capsule TAKE 1 CAPSULE BY MOUTH DAILY active Not Available Not Available No t Available Kenalog 10 mg/mL suspension for injection in office 2024 active [facility]: 0003- 0494- 20 Not Available Not Available Not Available hydrocodone 7.5 mg-acetamin ophen 325 mg tablet 03/14 completed Not Available Not Available Not Available pantoprazol e 40 mg tablet,carmelita yed release active Not Available Not Available Not Available simvastatin 20 mg tablet TK 1 T PO NIGHTLY 03/31 completed Not Available Not Available Not Available nitroglycer in 0.[address] by sublingua l route. active Not Available Not Available No t Available hydrochloro thiazide 25 mg tablet 03/31 completed Not Available Not Available Not Available metoprolol succinate ER 25 mg tablet,exte nded release 24 hr active Not Available Not Available Not Available ibuprofen 600 mg tablet TAKE 1 TABLET BY MOUTH EVERY 6 HOURS OR NEEDED FOR PAIN STARTING AFTER SURGERY 03/31 completed Not Available Not Available Not Available levofloxaci n 500 mg tablet 03/14 completed Not Available Not Available Not Available methylpredn isolone 4 mg tablets in a dose pack FOLLOW PACKAGE DIRECTION S 04/10 completed Not Available Not Available Not Available albuterol sulfate HFA 90 mcg/actuati on aerosol inhaler INHALE 1 TO 2 PUFFS BY MOUTH EVERY 4 TO 6 HOURS NEEDED FOR SHORTNESS OF BREATH OR WHEEZING active Not Available Not Available No t Available loratadine 10 mg tablet 03/14 completed Not Available Not Available Not Available naproxen 500 mg tablet 03/21 completed Not Available Not Available Not Available amoxicillin 875 mg-potassiu m clavulanate 125 mg tablet TAKE 1 TABLET BY MOUTH TWICE DAILY 04/10 completed Not Available Not Available Not Available tobramycin 0.3 %-dexametha sone 0.1 % eye drops,suspe nsion SHAKE LIQUID AND INSTILL 1 DROP IN LEFT EYE FOUR TIMES DAILY. START DROPS AFTER SURGERY active Not Available Not Available No t Available enoxaparin 30 mg/0.3 mL subcutaneou s syringe INJECT 1 SYRINGE SUBCUTANE OUSLY Q 12 H 03/14 completed Not Available Not Available Not Available azithromyci n 500 mg tablet TAKE 1 TABLET BY MOUTH EVERY DAY 04/10 completed Not Available Not Available Not Available Asprin Ec Low Dose 81 mg tablet,carmelita yed release Take 1 tablet every day by oral route. active Not Available Not Available No t Available Vigamox 0.5 % eye drops 03/14 completed Not Available Not Available Not Available nitrofurant oin monohydrate /macrocryst als 100 mg capsule active Not Available Not Available Not Available DILT-XR 240 mg capsule, extended release 05/27 completed Not Available Not Available Not Available Nevanac 0.1 % eye drops,suspe nsion 03/14 completed Not Available Not Available Not Available Mucinex D 60 mg-600 mg tablet,exte nded release TK 1 T PO UTD FOR 10 DAYS 03/14 completed Not Available Not Available Not Available diclofenac sodium 04/10 completed Not Available Not Available Not Available metoprolol succinate 04/10 completed Not Available Not Available Not Available lidocaine (PF) 10 mg/mL (1 %) injection solution In office injection administe red by the provider 04/10 completed [facility]: [phone]- [phone] Not Available Not Available Not Available Zostavax (PF) 19,400 unit/0.65 mL subcutaneou s suspension 03/14 completed Not Available Not Available Not Available Durezol 0.05 % eye drops 03/14 completed Not Available Not Available Not Available ropivacaine (PF) 5 mg/mL (0.5 %) injection solution Take 10 mg by injection route. 04/10 completed [facility] [phone] -[phone] Not Available Not Available Not Available Xarelto 20 mg tablet 04/10 completed Not Available Not Available Not Available apixaban 5 mg tablet Take 1 tablet twice a day by oral route. active Not Available Not Available No t Available Vitals Date Recorded Body height Body mass index (BMI) Body weight Provider Name and Address Organization Details Last Updated DateTime 09/18/2024 167.64 cm 40.4 kg/m2 211978.09 g Rosie Webb [facility] [employer] [facility] 09/18/2024 14:23:08 Date Recorded Body height Body mass index (BMI) Body weight Provider Name and Address Organization Details Last Updated DateTime 12/01/2023 167.64 cm 40.4 kg/m2 480173.09 g Chelsea Latham [facility] [employer] [facility] [employer] [facility] 12/01/2023 10:49:18 Date Recorded Body height Body mass index (BMI) Body weight Provider Name and Address Organization Details Last Updated DateTime 03/31/2023 167.64 cm 41.5 kg/m2 423942.24 g Ellen Trivedi [facility] [employer] 03/31/2023 15:24:22 Date Recorded Body height Body mass index (BMI) Body weight Provider Name and Address Organization Details Last Updated DateTime 04/10/2024 167.64 cm 40.4 kg/m2 288990.09 maurisio Rebollar [facility] [employer] [facility] 04/10/2024 14:51:38 Date Recorded Body height Body mass index (BMI) Body weight Provider Name and Address Organization Details Last Updated DateTime 05/12/2023 167.64 cm 40 kg/m2 649753.91 maurisio Latham CNA [facility] [employer] [facility] 05/12/2023 14:54:53 Social History None recorded. Functional Status Question Answer Note LastModified by Organization D etails LastModified Time What is your level of alcohol consumption? None [email or web address] Information not available 03/31/2023 Mental Status None recorded. Family History Relationship Description Onset Age of this Age Resolved Age Notes LastModified by Organization Details LastModified Time Father Heart disease [email or web address] Not available 2022 15:25:33 Father Hypertensive disorder [email or web address] Not available 2022 15:26:01 Brother Heart disease [email or web address] Not available 2022 15:25:33 Sister Family history of malignant neoplasm [email or web address] Not available 2022 15:25:46 Mother Hypertensive disorder Not available 2022 15:26:01 Mother Diabetes mellitus [email or web address] Not available 2022 15:26:12 Mother Family history of stroke [email or web address] Not available 2023 14:55:28 Medical History Condition Response ARTHRITIS Y URINARY/BLADDER/KIDNEY PROBLEMS Y USE OF BLOOD THINNERS Y HEART ARRHYTHMIA Y VASCULAR DISEASE Y HAVE YOU BEEN HOSPITALIZED OR SEEN IN [facility] IN THE PAST YEAR ? Y HYPERTENSION Y Past Encounters Encounter ID Performer Location Encounter Start Date Encounter Closed Date Diagnosis/Indication Diagnosis SNOMED-CT Code Diagnosis ICD10 Code Diagnosis Note [id number] Marbin Rushing MD [facility] [place] [address] [place] [address] 03/31/2023 15:02:58 03/31/2023 15:54:10 Pain of right ankle joint 4984514367 3049563 M25.571 Localized, primary osteoarthritis of the ankle and/or foot 269661123 M19.892 [id number] Marbin Rushing MD [facility] [place] [address] [place] [address] 05/12/2023 14:52:54 05/12/2023 15:14:30 Pain of right ankle joint 2106926169 9229065 M25.571 Localized, primary osteoarthritis of the ankle and/or foot 842647418 M19.479 [id number] Darin Weller MD [facility] [place] [address] [place] [address] 12/01/2023 10:42:16 12/01/2023 11:15:09 Pain of right ankle joint 0483510631 1872107 M25.571 Localized, primary osteoarthritis of the ankle and/or foot 314715969 M19.159 [id number] Darin Weller MD [facility] [place] [address] [facility] [address] [place] [address] 04/10/2024 14:29:25 04/10/2024 15:16:19 Pain of right ankle joint 4007809125 2113451 M25.571 Localized, primary osteoarthritis of the ankle and/or foot 639051390 M19.391 [id number] Darin Weller MD [facility] [place] [address] [facility] [address] [place] [address] 09/18/2024 14:19:14 09/18/2024 14:45:29 Pain of right ankle joint 4519593639 5468625 M25.571 Localized, primary osteoarthritis of the ankle and/or foot 672123712 M19.071 Plantar fa sciitis of right foot 3749527430 3292536 M72.2 Health Concerns Section Related Observation LastModified by Organization Detai ls LastModified Time None Recorded Concern Status LastModified by Organization Details LastModified Time None Recorded Advance Directives Directive None Recorded Payers Encounter Date Sequence Insurance Name Policy Number Policy Wynn Covered Member ID Wynn Member ID Guarantor Name 03/31/2023 1 [place] Howie Herman Charter [id number] Howie Herman Charter 03/31/2023 2 [employer] (MEDICARE SUPPLEMENT) Howie Herman Charter [id number] Howie Herman Charter 05/12/2023 1 [place] Howie Herman Charter [id number] Howie Herman Charter 05/12/2023 2 [facility] [employer] (MEDICARE SUPPLEMENT) Howie Herman Charter [id number] Howie Herman Charter 12/01/2023 1 [facility] (MEDICARE REPLACEMENT/A DVANTAGE - HMO) [id number] Howie Herman Charter [id number] Howie Herman Charter 04/10/2024 1 [facility] (MEDICARE REPLACEMENT/A DVANTAGE - HMO) [id number] Howie Herman Charter [id number] Howie Herman Charter 09/18/2024 1 [facility] (MEDICARE REPLACEMENT/A DVANTAGE - HMO) [id number] [facility] [id number] Howie Charter Notes Date Note Type Note Provider Name and Address Organization Details Recorded Time 03/31/2023 text/html Patient is a 78-year-old male presents with a 4 to five-month history of right ankle pain. The patient's pain is localized laterally to somewhat anteriorly, he states he has not had any specific trauma or injury. Many years ago he has had some ankle sprains here and there but nothing recently. He states once a week he mows the yd and a neighbor's yd as well this aggravates his symptoms significantly. He does have a history of significant flatfoot deformity bilaterally wears orthotics really was not having any pain medially or posteriorly is not sure why the lateral ankle started to hurt so much. When he sits for a while the ankle feels stiff once he gets up gets going this 1st few steps really bother him quite a bit. It limits his daily activities he has tried a recent prescription for diclofenac gel he cannot take nonsteroidal anti-inflammatories orally because of the fact that he is on blood thinners he takes Eliquis. patient comes in today for initial evaluation treatment [facility] that he had bone spurs and some osteoarthritis in the ankle. He has not had any injections or other treatment to date other than the diclofenac gel.Past medical history sheet was reviewed and signed on the intake sheet of today's date drug allergies current medications family social history previous surgical history 10 point review of systems was reviewed and discussed in detail today with the patient. [facility] [address], [address], [place], [id number], [employer] [facility] [employer] 03/31/2023 16:14:17 05/12/2023 text/html Patient returns for recheck of his right ankle. The patient had a previous 4-5 month history of ankle pain no acute trauma or injury is noted he states over the years he has had multiple ankle sprains he also has a significant flatfoot deformity bilaterally and wears orthotics. Most the ankle pain is localized laterally really not medially or posteriorly. He was unable to take more than a few steps without significant discomfort. He cannot take nonsteroidal anti-inflammatories because he is on blood thinners chronically. He does use some diclofenac gel on his ankle but this was not helping much either. He came in to see me we did a shot of cortisone into the lateral gutter at the point of maximal pain. He comes in today stating that his pain is much better he is quite pleased with the treatment results. We had tried to get him set up for therapy and oral prednisone but he was unable to get in to see the therapist and never picked up the prednisone pills from the pharmacy. He states he was feeling so good he basically for out about the rest of the treatment plan. Comes in today for recheck and dock about further treatment options in the future if necessary. Previous x-rays show some small hypertrophic spurring on the tips of the medial and lateral malleoli consistent with old trauma with kissing lesions possibly causing impingement medially and laterally between the malleoli and the talus. Ankle mortise was otherwise well maintained. [facility] [address], [address], [place], [address], [employer] 05/12/2023 16:14:11 12/01/2023 text/html Patient returns with right ankle pain. He has had some chronic issues with his ankle I saw him last fall for shot of cortisone in the right ankle which gave him good relief. I have now not seen him in about 6-1/2 months. Recently he was doing okay but then was on a ladder up and down quite a bit working on his camper. This has aggravated his right ankle. He states he has had multiple injuries to his ankle over the years with multiple sprains he is developed some mild osteoarthritis all the pain is localized to the lateral gutter. He also has a significant flatfoot deformity wears orthotics but really does not have any pain medially. He states his right ankle stays a little puffy particularly over the lateral portion he does have some mild venous stasis changes bilaterally and mild pedal edema but the ankle is puffy laterally and tender there as well in the lateral gutter. He would like another shot of cortisone today. Does occasionally take diclofenac to help with the pain but right now he states the pain is about a 4-5 on a scale of 1-10. Denies any new trauma or injury to his right ankle. Just overuse type injury which has aggravated his symptoms.Today I reviewed the patient's past medical history with him and reviewed his previous x-rays that we did last year as well. [facility] [address], [address], [place], [address], [place] [facility] [place] [facility] 12/01/2023 11:06:17 04/10/2024 text/html Patient returns complaining of right ankle pain. He comes in every few months for cortisone injections. He has a long history of ankle pain mostly in the lateral gutter region. He has had previous multiple ankle sprains has developed some osteoarthritis. It has been more than a year since his last x-rays we are going to get some new updated x-rays today. The shot of cortisone typically give him good relief denies any new trauma or injury but he did overdo it recently helping someone move and this has aggravated his symptoms. States the pain is about a 5 on a scale of 1-10 walks with a limp. He has chronic aching stiffness but the shots do help he would like another 1 today. New past medical history sheet was reviewed and signed on the intake sheet of today's date drug allergies current medications family social history previous surgical history 10 point review of systems was reviewed and discussed in detail today with the patient. [facility] [address], [address], [place], [address], [employer] 04/10/2024 15:20:22 09/18/2024 text/html The patient retu rns with right ankle pain he also has a new problem with right heel pain. He denies any trauma or injury lately every time he takes a step his right heel feels like a stabbing sharp pain, he has had no puncture wounds no erythema effusion or signs of infection. It sounds like he has plantar fasciitis with a heel spur we reviewed his previous x-ray of his foot and ankle and indeed he does have a significant heel spur due to chronic plantar fasciitis. He has been trying to use shoe inserts to help which helps a little bit but he continues to have some pain he is wondering about having this treated today as well. In the meantime he also has had previous multiple ankle sprains and has developed some osteoarthritis in the ankle joint. Shots of cortisone gave him good relief helps him get around much better. He has chronic aching and stiffness but the shots do give him good relief he would like to try another 1 today it has been 5 months since his last cortisone injection. [facility] [address], [address], [place], [address], [employer] 09/18/2024 14:46:44
--- OUTSIDE RECORDS SUMMARY | 2024-12-07 10:29 | XMS_ITS | Referral Summary ---
Author Organization [facility] Address [facility] [place] [address] Care Team Providers Care Joint Maker Machine Name Role Phone SalvatoreJenna Primary Care Provi jass Aristides Solomon MD Unavailable Encounters Date Type Department Care Team Description 11/22/2024 Results Follow-Up [facility] Cardiology [address] [place] [address] [place] [phone] Kathy Magdaleno RN Transthoracic Echo (TTE) Complete W Doppler/CF 11/22/2024 8:15 AM CDT Ancillary Procedure [facility] Cardiology at [address] [place] [address] Chronic heart failure with preserved ejection fraction (HCC) 11/20/2024 Telephone [facility] Cardiology [address] [place] [address] [address] [place] [address] Jaya Tariq MD 11/20/2024 11:00 AM CDT Office Visit [facility] [address] [place] [address] [address] [place] [address] Jaya Tariq MD Chronic heart failure with preserved ejection fraction (HCC) (Primary Dx) from Last 3 Months Allergies No known active allergies Medications aspirin (ASPIR-81) 81 mg tablet take 1 tablet by oral route every day 0 5 Active nitroglycerin (NITROSTAT) 0.[address] 1 tablet (0.4 mg total) under the tongue every 5 (five) minutes as needed for chest pain Max 3 doses. 60 tablet 3 0 Active atorvastatin (LIPITOR) 80 mg tablet Take 1 tablet (80 mg total) by mouth daily 90 tablet 2 2 Active isosorbide mononitrate ER (IMDUR) 60 mg 24 hr tablet TAKE 1 TABLET(60 MG) BY MOUTH TWICE DAILY 180 tablet 3 2 Active tamsulosin (FLOMAX) 0.4 mg extended release capsuleIndicatio ns:Benign prostatic hyperplasia with urinary frequency TAKE 1 CAPSULE(0.4 MG) BY MOUTH DAILY 30 capsule 5 3 Active albuterol HFA (PROVENTIL HFA,VENTOLIN HFA,PROAIR HFA) 90 mcg/actuation inhaler Inhale 8.5 g as needed 3 Active metFORMIN (GLUCOPHAGE) 1,000 mg tablet Take 0.5 tablets (500 mg total) by mouth 2 (two) times a day with meals 3 Active diclofenac sodium (VOLTAREN) 1 % gel APPLY 2 GM TO AFFECTED AREA(S) FOUR TIMES A DAY FOR PAIN DO NOT EXCEED MORE THAN 16 GRAMS DAILY TO ANY LOWER EXTREMITY JOINT. NOT MORE THAN 8 GRAMS DAILY TO ANY UPPER EXTREMITY JOINT. MAX 32GM/DAY OVER ALL JOINTS. (MEASURE DOSE WITH RULER ATTACHED INSIDE BOX) 3 Active ibuprofen (ADVIL,MOTRIN) 800 mg tablet 3 Active lidocaine (LIDODERM) 5 % Place 1 patch on the skin daily AND PRESS FIRMLY FOR 10-15 SECONDS. KEEP ON FOR 12 HOURS THEN REMOVE PATCH FOR 12 HOURS. 4 Active gabapentin (NEURONTIN) 300 mg capsule Take 1 capsule (300 mg total) by mouth nightly 4 Active phenazopyridine (PYRIDIUM) 100 mg tabletIndication s:Dysuria Take 1 tablet (100 mg total) by mouth 3 (three) times a day as needed for urinary pain 10 tablet 4 Active Additional Information Patient not taking.Reported on 11/20/2024 metoprolol XL (TOPROL-XL) 25 mg extended release tablet Take 5 tablets (125 mg total) by mouth daily 150 tablet 5 4 Active apixaban (ELIQUIS) 5 mg tablet Take 1 tablet (5 mg total) by mouth 2 (two) times a day Active furosemide (LASIX) 40 mg tablet Take 1 tablet (40 mg total) by mouth daily 90 tablet 5 02/20/20 25 Active Active Problems Problem Noted Date Diagnosed Date Preop cardiovascular exam 05/21/2024 Hospital discharge follow-up 03/22/2024 Assessment & Plan (03/22/2024 2:15 PM CDT): Transition of care completed History of coronary angioplasty with insertion o f stent 03/22/2024 Assessment & Plan (03/22/2024 2:15 PM CDT): S/P stent placement 03/10/2024. Large bruising to right groin. Check CBC. Denies chest pain or shortness of breath. Follow up with cardiology S/P cardiac catheterization 03/22/2024 Assessment & Plan (03/22/2024 2:15 PM CDT): S/P stent placement 03/10/2024. Large bruising to right groin. Check CBC. Denies chest pain or shortness of breath. Follow up with cardiology Elevated troponin 03/09/2024 Assessment & Plan (03/11/2024 12:18 PM CDT): -POA,Levels are trending up,follow,con't cardiac regimen,cardiology consulted. -03/10/2024,He underwent cardiac cath today with one stent placed. -03/11/2024,S/P Cardiac cath,one stent to old graft,con't ASA,plavix,statin,cardiology following. Assessment & Plan (03/10/2024 2:35 PM CDT): -POA,Levels are trending up,follow,con't cardiac regimen,cardiology consulted. -03/10/2024,He underwent cardiac cath today with one stent placed. Assessment & Plan (03/09/2024 7:37 PM CDT): -POA,Levels are trending up,follow,con't cardiac regimen,cardiology consulted. Chest pain 03/06/2024 Assessment & Plan (03/22/2024 2:14 PM CDT): Denies chest pain at todays visit. S/P balloon angioplasty with stent. Continue plavix, statin. Check CBC today. Followed by cardiology Assessment & Plan (03/11/2024 12:20 PM CDT): -POA,He presented to the ER from home via EMS with recurrence of chest pain burning sensation radiating down his left arm.He was discharged home on yesterday pain free from the hospital.He received aspirin and nitro from EMS.Trops are trending up,admit,cardiology consulted. -03/10/2024,He underwent cardiac cath today with one stent placed today,con't statin,plavix,BP control,cardiology following. -03/11/2024,He denies CP today,c/o dizziness,has bruising at cath site,discussed with ,con't plavix,statin,monitor H/H. Assessment & Plan (03/10/2024 2:36 PM CDT): -POA,He presented to the ER from home via EMS with recurrence of chest pain burning sensation radiating down his left arm.He was discharged home on yesterday pain free from the hospital.He received aspirin and nitro from EMS.Trops are trending up,admit,cardiology consulted. -03/10/2024,He underwent cardiac cath today with one stent placed today,con't statin,plavix,BP control,cardiology following. Assessment & Plan (03/09/2024 7:36 PM CDT): -POA,He presented to the ER from home via EMS with recurrence of chest pain burning sensation radiating down his left arm.He was discharged home on yesterday pain free from the hospital.He received aspirin and nitro from EMS.Trops are trending up,admit,cardiology consulted. Assessment & Plan (03/07/2024 8:57 PM CDT): -POA,He presented to the ER via EMS from home with sudden onset of chest pain,SOB,pain radiating to his left arm while trimming grass after mowing his lawn.He received 2 nitro by EMS which relieved his pain.He received an aspirin in the ER.Trops are trending up,admitted for [place] workup,consult cardiology.Con't eliquis,statin,low fat,low cholesterol diet. -03/07/2024,He is pain free at exam,denies SOB,metoprolol dose increased by cardiology today,con't imdur and ASA,cardiology following.EF 65% on echo,no acute findings. Assessment & Plan (03/06/2024 7:48 PM CDT): -POA,He presented to the ER via EMS from home with sudden onset of chest pain,SOB,pain radiating to his left arm while trimming grass after mowing his lawn.He received 2 nitro by EMS which relieved his pain.He received an aspirin in the ER.Trops are trending up,admitted for [place] workup,consult cardiology.Con't eliquis,statin,low fat,low cholesterol diet. Mixed diabetic hyperlipidemi a associated with type 2 diabetes mellitus 03/25/2023 Assessment & Plan (03/11/2024 12:16 PM CDT): -POA,chronic,Stable,follow 1800 calorie diabetic diet,maintain a low fat, low cholesterol diet,con't SSI. -03/10/2024,Glucose 108,Stable,follow 1800 calorie diabetic diet,maintain a low fat, low cholesterol diet,con't SSI. -03/11/2024,Glucose 1318,Stable,follow 1800 calorie diabetic diet,maintain a low fat, low cholesterol diet,con't SSI. Lab Results Component Value Date CHOL 118 03/09/2024 CHOL 141 03/06/2024 CHOL 120 12/20/2023 POCCHOL <100 10/04/2023 POCCHOL 146 08/14/2021 POCCHOL 175 08/22/2020 Lab Results Component Value Date HDL 34 (L) 03/09/2024 HDL 37 (L) 03/06/2024 HDL 35 (L) 12/20/2023 POCHDL 22 10/04/2023 POCHDL 34 08/14/2021 POCHDL 30 08/22/2020 Lab Results Component Value Date LDLCALC 58 03/09/2024 LDLCALC 76 03/06/2024 LDLCALC 63 12/20/2023 LDL 73 05/21/2016 LDL 85 01/28/2016 LDL 81 09/10/2015 POCLDL 65 10/04/2023 POCLDL 74 08/14/2021 POCLDL 78 08/22/2020 SCRLDL 96 11/06/2020 Lab Results Component Value Date TRIG 150 (H) 03/09/2024 TRIG 163 (H) 03/06/2024 TRIG 109 12/20/2023 POCTRIG <45 10/04/2023 POCTRIG 194 08/14/2021 POCTRIG 337 08/22/2020 Lab Results Component Value Date POCCHDLR 4.3 08/14/2021 POCCHDLR 5.8 08/22/2020 POCCHDLR 5.2 04/07/2020 Lab Results Component Value Date POCNONHDL 113 08/14/2021 POCNONHDL 145 08/22/2020 POCNONHDL 130 04/07/2020 Lab Results Component Value Date POCCHLPL <100 10/04/2023 POCCHLPL 146 08/14/2021 POCCHLPL 175 08/22/2020 Lab Results Component Value Date HGBA1C 5.9 (H) 03/06/2024 Assessment & Plan (03/10/2024 2:32 PM CDT): -POA,chronic,Stable,follow 1800 calorie diabetic diet,maintain a low fat, low cholesterol diet,con't SSI. -03/10/2024,Glucose 108,Stable,follow 1800 calorie diabetic diet,maintain a low fat, low cholesterol diet,con't SSI. Lab Results Component Value Date CHOL 118 03/09/2024 CHOL 141 03/06/2024 CHOL 120 12/20/2023 POCCHOL <100 10/04/2023 POCCHOL 146 08/14/2021 POCCHOL 175 08/22/2020 Lab Results Component Value Date HDL 34 (L) 03/09/2024 HDL 37 (L) 03/06/2024 HDL 35 (L) 12/20/2023 POCHDL 22 10/04/2023 POCHDL 34 08/14/2021 POCHDL 30 08/22/2020 Lab Results Component Value Date LDLCALC 58 03/09/2024 LDLCALC 76 03/06/2024 LDLCALC 63 12/20/2023 LDL 73 05/21/2016 LDL 85 01/28/2016 LDL 81 09/10/2015 POCLDL 65 10/04/2023 POCLDL 74 08/14/2021 POCLDL 78 08/22/2020 SCRLDL 96 11/06/2020 Lab Results Component Value Date TRIG 150 (H) 03/09/2024 TRIG 163 (H) 03/06/2024 TRIG 109 12/20/2023 POCTRIG <45 10/04/2023 POCTRIG 194 08/14/2021 POCTRIG 337 08/22/2020 Lab Results Component Value Date POCCHDLR 4.3 08/14/2021 POCCHDLR 5.8 08/22/2020 POCCHDLR 5.2 04/07/2020 Lab Results Component Value Date POCNONHDL 113 08/14/2021 POCNONHDL 145 08/22/2020 POCNONHDL 130 04/07/2020 Lab Results Component Value Date POCCHLPL <100 10/04/2023 POCCHLPL 146 08/14/2021 POCCHLPL 175 08/22/2020 Lab Results Component Value Date HGBA1C 5.9 (H) 03/06/2024 Assessment & Plan (03/09/2024 7:39 PM CDT): -POA,chronic,Stable,follow 1800 calorie diabetic diet,maintain a low fat, low cholesterol diet,con't SSI. Lab Results Component Value Date CHOL 118 03/09/2024 CHOL 141 03/06/2024 CHOL 120 12/20/2023 POCCHOL <100 10/04/2023 POCCHOL 146 08/14/2021 POCCHOL 175 08/22/2020 Lab Results Component Value Date HDL 34 (L) 03/09/2024 HDL 37 (L) 03/06/2024 HDL 35 (L) 12/20/2023 POCHDL 22 10/04/2023 POCHDL 34 08/14/2021 POCHDL 30 08/22/2020 Lab Results Component Value Date LDLCALC 58 03/09/2024 LDLCALC 76 03/06/2024 LDLCALC 63 12/20/2023 LDL 73 05/21/2016 LDL 85 01/28/2016 LDL 81 09/10/2015 POCLDL 65 10/04/2023 POCLDL 74 08/14/2021 POCLDL 78 08/22/2020 SCRLDL 96 11/06/2020 Lab Results Component Value Date TRIG 150 (H) 03/09/2024 TRIG 163 (H) 03/06/2024 TRIG 109 12/20/2023 POCTRIG <45 10/04/2023 POCTRIG 194 08/14/2021 POCTRIG 337 08/22/2020 Lab Results Component Value Date POCCHDLR 4.3 08/14/2021 POCCHDLR 5.8 08/22/2020 POCCHDLR 5.2 04/07/2020 Lab Results Component Value Date POCNONHDL 113 08/14/2021 POCNONHDL 145 08/22/2020 POCNONHDL 130 04/07/2020 Lab Results Component Value Date POCCHLPL <100 10/04/2023 POCCHLPL 146 08/14/2021 POCCHLPL 175 08/22/2020 Lab Results Component Value Date HGBA1C 5.9 (H) 03/06/2024 Assessment & Plan (03/07/2024 8:52 PM CDT): -POA,chronic,Stable,follow 1800 calorie diabetic diet,maintain a low fat, low cholesterol diet,con't SSI. -03/07/2024,Stable,follow 1800 calorie diabetic diet,maintain a low fat, low cholesterol diet,con't SSI. Lab Results Component Value Date CHOL 141 03/06/2024 CHOL 120 12/20/2023 CHOL 136 06/20/2023 POCCHOL <100 10/04/2023 POCCHOL 146 08/14/2021 POCCHOL 175 08/22/2020 Lab Results Component Value Date HDL 37 (L) 03/06/2024 HDL 35 (L) 12/20/2023 HDL 30 (L) 06/20/2023 POCHDL 22 10/04/2023 POCHDL 34 08/14/2021 POCHDL 30 08/22/2020 Lab Results Component Value Date LDLCALC 76 03/06/2024 LDLCALC 63 12/20/2023 LDLCALC 71 06/20/2023 LDL 73 05/21/2016 LDL 85 01/28/2016 LDL 81 09/10/2015 POCLDL 65 10/04/2023 POCLDL 74 08/14/2021 POCLDL 78 08/22/2020 SCRLDL 96 11/06/2020 Lab Results Component Value Date TRIG 163 (H) 03/06/2024 TRIG 109 12/20/2023 TRIG 175 (H) 06/20/2023 POCTRIG <45 10/04/2023 POCTRIG 194 08/14/2021 POCTRIG 337 08/22/2020 Lab Results Component Value Date POCCHDLR 4.3 08/14/2021 POCCHDLR 5.8 08/22/2020 POCCHDLR 5.2 04/07/2020 Lab Results Component Value Date POCNONHDL 113 08/14/2021 POCNONHDL 145 08/22/2020 POCNONHDL 130 04/07/2020 Lab Results Component Value Date POCCHLPL <100 10/04/2023 POCCHLPL 146 08/14/2021 POCCHLPL 175 08/22/2020 Lab Results Component Value Date HGBA1C 5.9 (H) 03/06/2024 Assessment & Plan (03/06/2024 7:53 PM CDT): -POA,chronic,Stable,follow 1800 calorie diabetic diet,maintain a low fat, low cholesterol diet,con't SSI. Lab Results Component Value Date CHOL 120 12/20/2023 CHOL 136 06/20/2023 CHOL 135 12/21/2022 POCCHOL <100 10/04/2023 POCCHOL 146 08/14/2021 POCCHOL 175 08/22/2020 Lab Results Component Value Date HDL 35 (L) 12/20/2023 HDL 30 (L) 06/20/2023 HDL 32 (L) 12/21/2022 POCHDL 22 10/04/2023 POCHDL 34 08/14/2021 POCHDL 30 08/22/2020 Lab Results Component Value Date LDLCALC 63 12/20/2023 LDLCALC 71 06/20/2023 LDLCALC 55 12/21/2022 LDL 73 05/21/2016 LDL 85 01/28/2016 LDL 81 09/10/2015 POCLDL 65 10/04/2023 POCLDL 74 08/14/2021 POCLDL 78 08/22/2020 SCRLDL 96 11/06/2020 Lab Results Component Value Date TRIG 109 12/20/2023 TRIG 175 (H) 06/20/2023 TRIG 238 (H) 12/21/2022 POCTRIG <45 10/04/2023 POCTRIG 194 08/14/2021 POCTRIG 337 08/22/2020 Lab Results Component Value Date POCCHDLR 4.3 08/14/2021 POCCHDLR 5.8 08/22/2020 POCCHDLR 5.2 04/07/2020 Lab Results Component Value Date POCNONHDL 113 08/14/2021 POCNONHDL 145 08/22/2020 POCNONHDL 130 04/07/2020 Lab Results Component Value Date POCCHLPL <100 10/04/2023 POCCHLPL 146 08/14/2021 POCCHLPL 175 08/22/2020 Lab Results Component Value Date HGBA1C 5.8 (H) 12/20/2023 Assessment & Plan (12/18/2023 5:21 PM CDT): -06/03/2023,chronic,encouraged to follow 1800 calorie diabetic diet.Ayush F Charter was advised to maintain a low fat, low cholesterol diet. -12/09/2023,chronic,encouraged to follow 1800 calorie diabetic diet.Ayush F Charter was advised to maintain a low fat, low cholesterol diet. Lab Results Component Value Date CHOL 136 06/20/2023 CHOL 135 12/21/2022 CHOL 138 06/14/2022 POCCHOL <100 10/04/2023 POCCHOL 146 08/14/2021 POCCHOL 175 08/22/2020 Lab Results Component Value Date HDL 30 (L) 06/20/2023 HDL 32 (L) 12/21/2022 HDL 33 (L) 06/14/2022 POCHDL 22 10/04/2023 POCHDL 34 08/14/2021 POCHDL 30 08/22/2020 Lab Results Component Value Date LDLCALC 71 06/20/2023 LDLCALC 55 12/21/2022 LDLCALC 76 06/14/2022 LDL 73 05/21/2016 LDL 85 01/28/2016 LDL 81 09/10/2015 POCLDL 65 10/04/2023 POCLDL 74 08/14/2021 POCLDL 78 08/22/2020 SCRLDL 96 11/06/2020 Lab Results Component Value Date TRIG 175 (H) 06/20/2023 TRIG 238 (H) 12/21/2022 TRIG 147 06/14/2022 POCTRIG <45 10/04/2023 POCTRIG 194 08/14/2021 POCTRIG 337 08/22/2020 Lab Results Component Value Date POCCHDLR 4.3 08/14/2021 POCCHDLR 5.8 08/22/2020 POCCHDLR 5.2 04/07/2020 Lab Results Component Value Date POCNONHDL 113 08/14/2021 POCNONHDL 145 08/22/2020 POCNONHDL 130 04/07/2020 Lab Results Component Value Date POCCHLPL <100 10/04/2023 POCCHLPL 146 08/14/2021 POCCHLPL 175 08/22/2020 Lab Results Component Value Date HGBA1C 6.1 (H) 06/20/2023 Assessment & Plan (06/28/2023 11:25 PM TURNAROUND ENGINEER): -06/03/2023,chronic,encouraged to follow 1800 calorie diabetic diet.Ayush Virgil Anderson was advised to maintain a low fat, low cholesterol diet. Lab Results Component Value Date CHOL 136 06/20/2023 CHOL 135 12/21/2022 CHOL 138 06/14/2022 POCCHOL 146 08/14/2021 POCCHOL 175 08/22/2020 POCCHOL 162 04/07/2020 Lab Results Component Value Date HDL 30 (L) 06/20/2023 HDL 32 (L) 12/21/2022 HDL 33 (L) 06/14/2022 POCHDL 34 08/14/2021 POCHDL 30 08/22/2020 POCHDL 31 04/07/2020 Lab Results Component Value Date LDLCALC 71 06/20/2023 LDLCALC 55 12/21/2022 LDLCALC 76 06/14/2022 LDL 73 05/21/2016 LDL 85 01/28/2016 LDL 81 09/10/2015 POCLDL 74 08/14/2021 POCLDL 78 08/22/2020 POCLDL 93 04/07/2020 SCRLDL 96 11/06/2020 Lab Results Component Value Date TRIG 175 (H) 06/20/2023 TRIG 238 (H) 12/21/2022 TRIG 147 06/14/2022 POCTRIG 194 08/14/2021 POCTRIG 337 08/22/2020 POCTRIG 185 04/07/2020 Lab Results Component Value Date POCCHDLR 4.3 08/14/2021 POCCHDLR 5.8 08/22/2020 POCCHDLR 5.2 04/07/2020 Lab Results Component Value Date POCNONHDL 113 08/14/2021 POCNONHDL 145 08/22/2020 POCNONHDL 130 04/07/2020 Lab Results Component Value Date POCCHLPL 146 08/14/2021 POCCHLPL 175 08/22/2020 POCCHLPL 162 04/07/2020 Lab Results Component Value Date HGBA1C 6.1 (H) 06/20/2023 Chronic heart failure with preserved ejection fr action 04/21/2022 Assessment & Plan (03/22/2024 2:16 PM CDT): Chronic, compensated. Reports he was taken off furosemide by cardiology while in hospital. Recommend follow-up with cardiology regarding resuming diuretic. Continue metoprolol, imdur, and low sodium diet. Assessment & Plan (03/07/2024 8:55 PM CDT): -POA,chronic,compensated,con't lasix 40mg daily,metoprolol 100mg daily,imdur 60mg daily,low salt diet,fluid restriction,followed by cardiology. -03/07/2024,compensated,con't lasix 40mg daily,metoprolol 125mg daily,imdur 60mg daily,low salt diet,fluid restriction,followed by cardiology. Assessment & Plan (03/06/2024 7:49 PM CDT): -POA,chronic,compensated,con't lasix 40mg daily,metoprolol 100mg daily,imdur 60mg daily,low salt diet,fluid restriction,followed by cardiology. Assessment & Plan (06/28/2023 11:19 PM TURNAROUND ENGINEER): -06/02/2022,chronic,compensated,con't lasix 40mg daily,metoprolol 100mg daily,imdur 60mg daily,low salt diet,fluid restriction,followed by cardiology. -11/30/2022,chronic,compensated,con't lasix 40mg daily,metoprolol 100mg daily,imdur 60mg daily,low salt diet,fluid restriction,followed by cardiology. -06/03/2023,chronic,compensated,con't lasix 40mg daily,metoprolol 100mg daily,imdur 60mg daily,low salt diet,fluid restriction,followed by cardiology. Assessment & Plan (12/16/2022 8:58 PM CDT): -06/02/2022,chronic,compensated,con't lasix 40mg daily,metoprolol 100mg daily,imdur 60mg daily,low salt diet,fluid restriction,followed by cardiology. -11/30/2022,chronic,compensated,con't lasix 40mg daily,metoprolol 100mg daily,imdur 60mg daily,low salt diet,fluid restriction,followed by cardiology. Assessment & Plan (06/24/2022 12:33 AM TURNAROUND ENGINEER): -06/02/2022,chronic,compensated,con't lasix 40mg daily,metoprolol 100mg daily,imdur 60mg daily,low salt diet,fluid restriction,followed by cardiology. ASHLEY on CPAP 12/21/2021 Assessment & Plan (03/11/2024 12:15 PM CDT): -POA,chronic,stable,was counseled regarding importance of weight loss. -03/10/2024,stable. -03/11/2024,stable. Assessment & Plan (03/10/2024 2:32 PM CDT): -POA,chronic,stable,was counseled regarding importance of weight loss. -03/10/2024,stable. Assessment & Plan (03/09/2024 7:39 PM CDT): -POA,chronic,stable,was counseled regarding importance of weight loss. Assessment & Plan (03/07/2024 8:52 PM CDT): -POA,chronic,stable,was counseled regarding importance of weight loss. -03/07/2024,stable,was counseled regarding importance of weight loss. Assessment & Plan (03/06/2024 7:53 PM CDT): -POA,chronic,stable,was counseled regarding importance of weight loss. Assessment & Plan (12/18/2023 5:21 PM CDT): -12/21/2021,chronic,unchanged,was counseled regarding importance of weight loss. -06/02/2022,chronic,unchanged,was counseled regarding importance of weight loss. -11/30/2022,chronic,stable,was counseled regarding importance of weight loss. -06/03/2023,chronic,stable,was counseled regarding importance of weight loss. -12/09/2023,chronic,stable,was counseled regarding importance of weight loss. Assessment & Plan (06/28/2023 11:26 PM TURNAROUND ENGINEER): -12/21/2021,chronic,unchanged,was counseled regarding importance of weight loss. -06/02/2022,chronic,unchanged,was counseled regarding importance of weight loss. -11/30/2022,chronic,stable,was counseled regarding importance of weight loss. -06/03/2023,chronic,stable,was counseled regarding importance of weight loss. Assessment & Plan (12/16/2022 9:05 PM CDT): -12/21/2021,chronic,unchanged,was counseled regarding importance of weight loss. -06/02/2022,chronic,unchanged,was counseled regarding importance of weight loss. -11/30/2022,chronic,stable,was counseled regarding importance of weight loss. Assessment & Plan (06/24/2022 12:43 AM TURNAROUND ENGINEER): -12/21/2021,chronic,unchanged,was counseled regarding importance of weight loss. -06/02/2022,chronic,unchanged,was counseled regarding importance of weight loss. Assessment & Plan (01/04/2022 8:29 PM CDT): -12/21/2021,chronic,unchanged,was counseled regarding importance of weight loss. Localized edema 08/14/2021 Assessment & Plan (06/28/2023 11:24 PM TURNAROUND ENGINEER): -08/31/2021,chronic,con't HCTZ 25mg daily,low salt diet. -12/21/2021,chronic,improved,con't HCTZ 25mg daily,low salt diet. -06/02/2022,chronic,stable,con't HCTZ 25mg daily,low salt diet. -11/30/2022,chronic,stable,con't HCTZ 25mg daily,low salt diet. -06/03/2023,chronic,stable,con't HCTZ 25mg daily,low salt diet. Assessment & Plan (12/16/2022 9:07 PM CDT): -08/31/2021,chronic,con't HCTZ 25mg daily,low salt diet. -12/21/2021,chronic,improved,con't HCTZ 25mg daily,low salt diet. -06/02/2022,chronic,stable,con't HCTZ 25mg daily,low salt diet. -11/30/2022,chronic,stable,con't HCTZ 25mg daily,low salt diet. Assessment & Plan (06/24/2022 12:44 AM TURNAROUND ENGINEER): -08/31/2021,chronic,con't HCTZ 25mg daily,low salt diet. -12/21/2021,chronic,improved,con't HCTZ 25mg daily,low salt diet. -06/02/2022,chronic,stable,con't HCTZ 25mg daily,low salt diet. Assessment & Plan (01/04/2022 8:30 PM CDT): -08/31/2021,chronic,con't HCTZ 25mg daily,low salt diet. -12/21/2021,chronic,improved,con't HCTZ 25mg daily,low salt diet. Assessment & Plan (09/25/2021 9:25 PM CDT): -08/31/2021,chronic,con't HCTZ 25mg daily,low salt diet. Persistent atrial fibrillation 08/14/2021 Assessment & Plan (03/11/2024 12:15 PM CDT): -POA,chronic,rate-controlled,con't metoprolol 125mg daily,xarelto 20mg daily. -03/10/2024,rate-controlled,con't metoprolol 125mg daily,plavix daily. -03/11/2024,rate-controlled,con't metoprolol 125mg daily,plavix daily. Lab Results Component Value Date TSH 2.83 03/06/2024 Assessment & Plan (03/10/2024 2:32 PM CDT): -POA,chronic,rate-controlled,con't metoprolol 125mg daily,xarelto 20mg daily. -03/10/2024,rate-controlled,con't metoprolol 125mg daily,plavix daily. Lab Results Component Value Date TSH 2.83 03/06/2024 Assessment & Plan (03/09/2024 7:40 PM CDT): -POA,chronic,rate-controlled,con't metoprolol 125mg daily,xarelto 20mg daily. Lab Results Component Value Date TSH 2.83 03/06/2024 Assessment & Plan (03/07/2024 8:51 PM CDT): -POA,chronic,rate-controlled,con't metoprolol 100mg daily,xarelto 20mg daily. -03/07/2024,rate-controlled,con't metoprolol 125mg daily,xarelto 20mg daily. Lab Results Component Value Date TSH 2.83 03/06/2024 Assessment & Plan (03/06/2024 7:54 PM CDT): -POA,chronic,rate-controlled,con't metoprolol 100mg daily,xarelto 20mg daily. Lab Results Component Value Date TSH 2.55 12/20/2023 Assessment & Plan (12/18/2023 5:22 PM CDT): -08/31/2021,chronic,rate-controlled,con't metoprolol 100mg daily,xarelto 20mg daily. -12/21/2021,chronic,rate-controlled,con't metoprolol 100mg daily,xarelto 20mg daily. -06/02/2022,chronic,rate-controlled,con't metoprolol 100mg daily,xarelto 20mg daily. -11/30/2022,chronic,rate-controlled,con't metoprolol 100mg daily,xarelto 20mg daily. -06/03/2023,chronic,rate-controlled,con't metoprolol 100mg daily,xarelto 20mg daily. -12/09/2023,chronic,rate-controlled,con't metoprolol 100mg daily,xarelto 20mg daily. Assessment & Plan (06/28/2023 11:27 PM TURNAROUND ENGINEER): -08/31/2021,chronic,rate-controlled,con't metoprolol 100mg daily,xarelto 20mg daily. -12/21/2021,chronic,rate-controlled,con't metoprolol 100mg daily,xarelto 20mg daily. -06/02/2022,chronic,rate-controlled,con't metoprolol 100mg daily,xarelto 20mg daily. -11/30/2022,chronic,rate-controlled,con't metoprolol 100mg daily,xarelto 20mg daily. -06/03/2023,chronic,rate-controlled,con't metoprolol 100mg daily,xarelto 20mg daily. Assessment & Plan (04/18/2023 1:42 PM CDT): Chronic, continue metorprolol and xarelto. Followed by cardiology Assessment & Plan (12/16/2022 8:57 PM CDT): -08/31/2021,chronic,rate-controlled,con't metoprolol 100mg daily,xarelto 20mg daily. -12/21/2021,chronic,rate-controlled,con't metoprolol 100mg daily,xarelto 20mg daily. -06/02/2022,chronic,rate-controlled,con't metoprolol 100mg daily,xarelto 20mg daily. -11/30/2022,chronic,rate-controlled,con't metoprolol 100mg daily,xarelto 20mg daily. Assessment & Plan (06/24/2022 12:31 AM TURNAROUND ENGINEER): -08/31/2021,chronic,rate-controlled,con't metoprolol 100mg daily,xarelto 20mg daily. -12/21/2021,chronic,rate-controlled,con't metoprolol 100mg daily,xarelto 20mg daily. -06/02/2022,chronic,rate-controlled,con't metoprolol 100mg daily,xarelto 20mg daily. Assessment & Plan (01/04/2022 8:20 PM CDT): -08/31/2021,chronic,rate-controlled,con't metoprolol 100mg daily,xarelto 20mg daily. -12/21/2021,chronic,rate-controlled,con't metoprolol 100mg daily,xarelto 20mg daily. Assessment & Plan (09/25/2021 9:14 PM CDT): -08/31/2021,chronic,rate-controlled,con't metoprolol 100mg daily,xarelto 20mg daily. Chronic anticoagulation 08/14/2021 Assessment & Plan (06/28/2023 11:19 PM TURNAROUND ENGINEER): -08/31/2021,chronic,con't xarelto 20mg daily. -12/21/2021,chronic,con't xarelto 20mg daily. -06/02/2022,chronic,con't xarelto 20mg daily. -11/30/2022,chronic,con't xarelto 20mg daily. -06/03/2023,chronic,con't xarelto 20mg daily. Assessment & Plan (12/16/2022 8:59 PM CDT): -08/31/2021,chronic,con't xarelto 20mg daily. -12/21/2021,chronic,con't xarelto 20mg daily. -06/02/2022,chronic,con't xarelto 20mg daily. -11/30/2022,chronic,con't xarelto 20mg daily. Assessment & Plan (06/24/2022 12:34 AM TURNAROUND ENGINEER): -08/31/2021,chronic,con't xarelto 20mg daily. -12/21/2021,chronic,con't xarelto 20mg daily. -06/02/2022,chronic,con't xarelto 20mg daily. Assessment & Plan (01/04/2022 8:24 PM CDT): -08/31/2021,chronic,con't xarelto 20mg daily. -12/21/2021,chronic,con't xarelto 20mg daily. Assessment & Plan (09/25/2021 9:14 PM CDT): -08/31/2021,chronic,con't xarelto 20mg daily. Partial thickness rotator cuff tear 04/21/2021 Assessment & Plan (06/24/2022 12:41 AM TURNAROUND ENGINEER): -08/31/2021,chronic,con't ibuprofen,exercises. -06/02/2022,chronic,con't ibuprofen,exercises. Assessment & Plan (09/25/2021 9:22 PM CDT): -08/31/2021,chronic,con't ibuprofen,exercises. Lumbosacral spondylosis without myelopathy 02/23 Assessment & Plan (06/28/2023 11:24 PM TURNAROUND ENGINEER): -02/27/2020,08/29/2020,Chronic,unchanged,con't naproxen. -12/29/2020,chronic,con't ibuprofen 800mg tid. -08/31/2021,chronic,unchanged,con't ibuprofen 800mg tid,was encouraged to maintain a regular cardiovascular exercise program,was counseled regarding importance of weight loss. -06/02/2022,chronic,unchanged,con't ibuprofen 800mg tid,was encouraged to maintain a regular cardiovascular exercise program,was counseled regarding importance of weight loss. -11/30/2022,chronic,unchanged,con't ibuprofen 800mg tid,was encouraged to maintain a regular cardiovascular exercise program,was counseled regarding importance of weight loss. -06/03/2023,chronic,unchanged,con't ibuprofen 800mg tid,was encouraged to maintain a regular cardiovascular exercise program,was counseled regarding importance of weight loss. Assessment & Plan (12/16/2022 9:04 PM CDT): -02/27/2020,08/29/2020,Chronic,unchanged,con't naproxen. -12/29/2020,chronic,con't ibuprofen 800mg tid. -08/31/2021,chronic,unchanged,con't ibuprofen 800mg tid,was encouraged to maintain a regular cardiovascular exercise program,was counseled regarding importance of weight loss. -06/02/2022,chronic,unchanged,con't ibuprofen 800mg tid,was encouraged to maintain a regular cardiovascular exercise program,was counseled regarding importance of weight loss. -11/30/2022,chronic,unchanged,con't ibuprofen 800mg tid,was encouraged to maintain a regular cardiovascular exercise program,was counseled regarding importance of weight loss. Assessment & Plan (06/24/2022 12:43 AM TURNAROUND ENGINEER): -02/27/2020,08/29/2020,Chronic,unchanged,con't naproxen. -12/29/2020,chronic,con't ibuprofen 800mg tid. -08/31/2021,chronic,unchanged,con't ibuprofen 800mg tid,was encouraged to maintain a regular cardiovascular exercise program,was counseled regarding importance of weight loss. -06/02/2022,chronic,unchanged,con't ibuprofen 800mg tid,was encouraged to maintain a regular cardiovascular exercise program,was counseled regarding importance of weight loss. Assessment & Plan (01/04/2022 8:28 PM CDT): -02/27/2020,08/29/2020,Chronic,unchanged,con't naproxen. -12/29/2020,chronic,con't ibuprofen 800mg tid. -08/31/2021,chronic,unchanged,con't ibuprofen 800mg tid,was encouraged to maintain a regular cardiovascular exercise program,was counseled regarding importance of weight loss. -12/21/2021,chronic,unchanged,con't ibuprofen 800mg tid,was encouraged to maintain a regular cardiovascular exercise program,was counseled regarding importance of weight loss. Assessment & Plan (09/25/2021 9:22 PM CDT): -02/27/2020,08/29/2020,Chronic,unchanged,con't naproxen. -12/29/2020,chronic,con't ibuprofen 800mg tid. -08/31/2021,chronic,unchanged,con't ibuprofen 800mg tid,was encouraged to maintain a regular cardiovascular exercise program,was counseled regarding importance of weight loss. Chronic left-sided low back pain without sciatic a 12/29/2020 Assessment & Plan (06/28/2023 11:20 PM TURNAROUND ENGINEER): -02/27/2020,08/29/2020,Chronic,unchanged,con't naproxen. -12/29/2020,chronic,con't ibuprofen 800mg tid. -08/31/2021,chronic,unchanged,con't ibuprofen 800mg tid,was encouraged to maintain a regular cardiovascular exercise program,was counseled regarding importance of weight loss. -06/02/2022,chronic,unchanged,con't ibuprofen 800mg tid,was encouraged to maintain a regular cardiovascular exercise program,was counseled regarding importance of weight loss. -06/03/2023,chronic,unchanged,con't ibuprofen 800mg tid,was encouraged to maintain a regular cardiovascular exercise program,was counseled regarding importance of weight loss. Assessment & Plan (06/24/2022 12:41 AM TURNAROUND ENGINEER): -02/27/2020,08/29/2020,Chronic,unchanged,con't naproxen. -12/29/2020,chronic,con't ibuprofen 800mg tid. -08/31/2021,chronic,unchanged,con't ibuprofen 800mg tid,was encouraged to maintain a regular cardiovascular exercise program,was counseled regarding importance of weight loss. -06/02/2022,chronic,unchanged,con't ibuprofen 800mg tid,was encouraged to maintain a regular cardiovascular exercise program,was counseled regarding importance of weight loss. Assessment & Plan (09/25/2021 9:20 PM CDT): -12/29/2020,chronic,con't ibuprofen 800mg tid. -08/31/2021,chronic,stable,con't ibuprofen 800mg tid. Assessment & Plan (01/04/2021 2:47 PM CDT): -12/29/2020,chronic,con't ibuprofen 800mg tid. Moderate episode of recurrent major depressive d isorder 12/29/2020 Assessment & Plan (06/28/2023 11:26 PM TURNAROUND ENGINEER): -12/29/2020,new,multiple family stressors,start buspar 5mg tid,was encouraged to maintain a regular cardiovascular exercise program. -01/28/2021,new,multiple family stressors,improving with buspar 5mg tid,was encouraged to maintain a regular cardiovascular exercise program. -08/31/2021,chronic,multiple family stressors,improved with buspar 5mg tid,was encouraged to maintain a regular cardiovascular exercise program. -12/21/2021,chronic,multiple family stressors,improved with buspar 5mg tid,was encouraged to maintain a regular cardiovascular exercise program. -06/02/2022,chronic,multiple family stressors,stable,con't buspar 5mg tid,was encouraged to maintain a regular cardiovascular exercise program. -11/30/2022,chronic,improving,multiple family stressors,stable,con't buspar 5mg tid,was encouraged to maintain a regular cardiovascular exercise program. -06/03/2023,chronic,improving,multiple family stressors,stable,con't buspar 5mg tid,was encouraged to maintain a regular cardiovascular exercise program. Assessment & Plan (12/16/2022 9:03 PM CDT): -12/29/2020,new,multiple family stressors,start buspar 5mg tid,was encouraged to maintain a regular cardiovascular exercise program. -01/28/2021,new,multiple family stressors,improving with buspar 5mg tid,was encouraged to maintain a regular cardiovascular exercise program. -08/31/2021,chronic,multiple family stressors,improved with buspar 5mg tid,was encouraged to maintain a regular cardiovascular exercise program. -12/21/2021,chronic,multiple family stressors,improved with buspar 5mg tid,was encouraged to maintain a regular cardiovascular exercise program. -06/02/2022,chronic,multiple family stressors,stable,con't buspar 5mg tid,was encouraged to maintain a regular cardiovascular exercise program. -11/30/2022,chronic,improving,multiple family stressors,stable,con't buspar 5mg tid,was encouraged to maintain a regular cardiovascular exercise program. Assessment & Plan (06/24/2022 12:40 AM TURNAROUND ENGINEER): -12/29/2020,new,multiple family stressors,start buspar 5mg tid,was encouraged to maintain a regular cardiovascular exercise program. -01/28/2021,new,multiple family stressors,improving with buspar 5mg tid,was encouraged to maintain a regular cardiovascular exercise program. -08/31/2021,chronic,multiple family stressors,improved with buspar 5mg tid,was encouraged to maintain a regular cardiovascular exercise program. -12/21/2021,chronic,multiple family stressors,improved with buspar 5mg tid,was encouraged to maintain a regular cardiovascular exercise program. -06/02/2022,chronic,multiple family stressors,stable,con't buspar 5mg tid,was encouraged to maintain a regular cardiovascular exercise program. Assessment & Plan (01/04/2022 8:27 PM CDT): -12/29/2020,new,multiple family stressors,start buspar 5mg tid,was encouraged to maintain a regular cardiovascular exercise program. -01/28/2021,new,multiple family stressors,improving with buspar 5mg tid,was encouraged to maintain a regular cardiovascular exercise program. -08/31/2021,chronic,multiple family stressors,improved with buspar 5mg tid,was encouraged to maintain a regular cardiovascular exercise program. -12/21/2021,chronic,multiple family stressors,improved with buspar 5mg tid,was encouraged to maintain a regular cardiovascular exercise program. Assessment & Plan (09/25/2021 9:18 PM CDT): -12/29/2020,new,multiple family stressors,start buspar 5mg tid,was encouraged to maintain a regular cardiovascular exercise program. -01/28/2021,new,multiple family stressors,improving with buspar 5mg tid,was encouraged to maintain a regular cardiovascular exercise program. -08/31/2021,chronic,multiple family stressors,improved with buspar 5mg tid,was encouraged to maintain a regular cardiovascular exercise program. Assessment & Plan (02/01/2021 1:37 AM CDT): -12/29/2020,new,multiple family stressors,start buspar 5mg tid,was encouraged to maintain a regular cardiovascular exercise program. -01/28/2021,new,multiple family stressors,improving with buspar 5mg tid,was encouraged to maintain a regular cardiovascular exercise program. Assessment & Plan (01/04/2021 2:51 PM CDT): -12/29/2020,new,multiple family stressors,start buspar 5mg tid,was encouraged to maintain a regular cardiovascular exercise program. Atypical mole 04/20/2019 Assessment & Plan (12/18/2023 5:16 PM CDT): -02/27/2020,08/29/2020,12/29/2020,right leg,increasing in size,different colors,needs to see derm.He has not seen derm yet. -08/31/2021,chronic,unchanged,has not seen derm, present at exam.He states will schedule an appt with dermatology. -06/02/2022,chronic,unchanged,has not seen derm, present at exam.He states will schedule an appt with dermatology. -11/30/2022,chronic,unchanged,denies bleeding,pain,color changes,has not seen derm, present at exam.He states will schedule an appt with dermatology. -06/03/2023,chronic,unchanged,denies bleeding,pain,color changes,has not seen derm, present at exam.He states will schedule an appt with dermatology. -12/09/2023,chronic,unchanged,denies bleeding,pain,color changes,has not seen derm, present at exam.He states will schedule an appt with dermatology. Assessment & Plan (06/28/2023 11:18 PM TURNAROUND ENGINEER): -02/27/2020,08/29/2020,12/29/2020,right leg,increasing in size,different colors,needs to see derm.He has not seen derm yet. -08/31/2021,chronic,unchanged,has not seen derm, present at exam.He states will schedule an appt with dermatology. -06/02/2022,chronic,unchanged,has not seen derm, present at exam.He states will schedule an appt with dermatology. -11/30/2022,chronic,unchanged,denies bleeding,pain,color changes,has not seen derm, present at exam.He states will schedule an appt with dermatology. -06/03/2023,chronic,unchanged,denies bleeding,pain,color changes,has not seen derm, present at exam.He states will schedule an appt with dermatology. Assessment & Plan (12/16/2022 9:06 PM CDT): -02/27/2020,08/29/2020,12/29/2020,right leg,increasing in size,different colors,needs to see derm.He has not seen derm yet. -08/31/2021,chronic,unchanged,has not seen derm, present at exam.He states will schedule an appt with dermatology. -06/02/2022,chronic,unchanged,has not seen derm, present at exam.He states will schedule an appt with dermatology. -11/30/2022,chronic,unchanged,denies bleeding,pain,color changes,has not seen derm, present at exam.He states will schedule an appt with dermatology. Assessment & Plan (06/24/2022 12:44 AM TURNAROUND ENGINEER): -02/27/2020,08/29/2020,12/29/2020,right leg,increasing in size,different colors,needs to see derm.He has not seen derm yet. -08/31/2021,chronic,unchanged,has not seen derm, present at exam.He states will schedule an appt with dermatology. -06/02/2022,chronic,unchanged,has not seen derm, present at exam.He states will schedule an appt with dermatology. Assessment & Plan (09/25/2021 9:24 PM CDT): -02/27/2020,08/29/2020,12/29/2020,right leg,increasing in size,different colors,needs to see derm.He has not seen derm yet. -08/31/2021,chronic,unchanged,has not seen derm, present at exam.He states will schedule an appt with dermatology. Assessment & Plan (01/04/2021 2:50 PM CDT): -02/27/2020,08/29/2020,12/29/2020,right leg,increasing in size,different colors,needs to see derm.He has not seen derm yet. Assessment & Plan (08/31/2020 5:54 PM TURNAROUND ENGINEER): -02/27/2020,08/29/2020,right leg,increasing in size,different colors,needs to see derm Assessment & Plan (03/02/2020 9:22 PM CDT): -02/27/2020,right leg,increasing in size,different colors,needs to see derm Assessment & Plan (09/02/2019 8:58 PM TURNAROUND ENGINEER): -right leg,increasing in size,different colors,needs to see derm Assessment & Plan (04/21/2019 10:30 AM CDT): -right leg,increasing in size,different colors Class 3 severe obesity due t o excess calories with serious comorbidity and body mass index (BMI) of 40.0 to 44.9 in adult 01/07/2018 Assessment & Plan (03/22/2024 2:14 PM CDT): Chronic, unchanged. Discussed diet and exercise. Assessment & Plan (03/11/2024 12:19 PM CDT): -POA,chronic,improving,was counseled regarding importance of weight loss. -03/10/2024,improving,was counseled regarding importance of weight loss. -03/11/2024,improving,was counseled regarding importance of weight loss. Assessment & Plan (03/10/2024 2:36 PM CDT): -POA,chronic,improving,was counseled regarding importance of weight loss. -03/10/2024,improving,was counseled regarding importance of weight loss. Assessment & Plan (03/09/2024 7:36 PM CDT): -POA,chronic,improving,was counseled regarding importance of weight loss. Assessment & Plan (03/07/2024 8:55 PM CDT): -POA,chronic,improving,was counseled regarding importance of weight loss. -03/07/2024,improving,was counseled regarding importance of weight loss. Assessment & Plan (03/06/2024 7:49 PM CDT): -POA,chronic,improving,was counseled regarding importance of weight loss. Assessment & Plan (12/18/2023 5:17 PM CDT): -02/27/2020,08/29/2020,12/29/2020,chronic,worse,was counseled regarding importance of weight loss. Discussed the patient's BMI. The BMI is above average; BMI management plan is completed. Regular aerobic exercise program discussed. -01/28/2021,chronic,worse,was counseled regarding importance of weight loss.Discussed the patient's BMI. The BMI is above average; BMI management plan is completed.Regular aerobic exercise program discussed -08/31/2021,chronic,improving,was counseled regarding importance of weight loss.Discussed the patient's BMI.The BMI is above average; BMI management plan is completed.Regular aerobic exercise program discussed. -12/21/2021,chronic,improving,was counseled regarding importance of weight loss.Discussed the patient's BMI.The BMI is above average; BMI management plan is completed.Regular aerobic exercise program discussed. -06/02/2022,chronic,improving,was counseled regarding importance of weight loss.Discussed the patient's BMI.The BMI is above average; BMI management plan is completed.Regular aerobic exercise program discussed. -11/30/2022,chronic,improving,was counseled regarding importance of weight loss.Discussed the patient's BMI.The BMI is above average; BMI management plan is completed.Regular aerobic exercise program discussed. -06/03/2023,chronic,worse,was counseled regarding importance of weight loss.Discussed the patient's BMI.The BMI is above average; BMI management plan is completed.Regular aerobic exercise program discussed. -12/09/2023,chronic,improving,was counseled regarding importance of weight loss.Discussed the patient's BMI.The BMI is above average; BMI management plan is completed.Regular aerobic exercise program discussed. Assessment & Plan (11/24/2023 10:07 AM CDT): Chronic, unchanged. Discussed diet and exercise. Assessment & Plan (06/28/2023 11:21 PM TURNAROUND ENGINEER): -02/27/2020,08/29/2020,12/29/2020,chronic,worse,was counseled regarding importance of weight loss. Discussed the patient's BMI. The BMI is above average; BMI management plan is completed. Regular aerobic exercise program discussed. -01/28/2021,chronic,worse,was counseled regarding importance of weight loss.Discussed the patient's BMI. The BMI is above average; BMI management plan is completed.Regular aerobic exercise program discussed -08/31/2021,chronic,improving,was counseled regarding importance of weight loss.Discussed the patient's BMI.The BMI is above average; BMI management plan is completed.Regular aerobic exercise program discussed. -12/21/2021,chronic,improving,was counseled regarding importance of weight loss.Discussed the patient's BMI.The BMI is above average; BMI management plan is completed.Regular aerobic exercise program discussed. -06/02/2022,chronic,improving,was counseled regarding importance of weight loss.Discussed the patient's BMI.The BMI is above average; BMI management plan is completed.Regular aerobic exercise program discussed. -11/30/2022,chronic,improving,was counseled regarding importance of weight loss.Discussed the patient's BMI.The BMI is above average; BMI management plan is completed.Regular aerobic exercise program discussed. -06/03/2023,chronic,worse,was counseled regarding importance of weight loss.Discussed the patient's BMI.The BMI is above average; BMI management plan is completed.Regular aerobic exercise program discussed. Assessment & Plan (12/16/2022 8:59 PM CDT): -02/27/2020,08/29/2020,12/29/2020,chronic,worse,was counseled regarding importance of weight loss. Discussed the patient's BMI. The BMI is above average; BMI management plan is completed. Regular aerobic exercise program discussed. -01/28/2021,chronic,worse,was counseled regarding importance of weight loss.Discussed the patient's BMI. The BMI is above average; BMI management plan is completed.Regular aerobic exercise program discussed -08/31/2021,chronic,improving,was counseled regarding importance of weight loss.Discussed the patient's BMI.The BMI is above average; BMI management plan is completed.Regular aerobic exercise program discussed. -12/21/2021,chronic,improving,was counseled regarding importance of weight loss.Discussed the patient's BMI.The BMI is above average; BMI management plan is completed.Regular aerobic exercise program discussed. -06/02/2022,chronic,improving,was counseled regarding importance of weight loss.Discussed the patient's BMI.The BMI is above average; BMI management plan is completed.Regular aerobic exercise program discussed. -11/30/2022,chronic,improving,was counseled regarding importance of weight loss.Discussed the patient's BMI.The BMI is above average; BMI management plan is completed.Regular aerobic exercise program discussed. Assessment & Plan (06/24/2022 12:34 AM TURNAROUND ENGINEER): -02/27/2020,08/29/2020,12/29/2020,chronic,worse,was counseled regarding importance of weight loss. Discussed the patient's BMI. The BMI is above average; BMI management plan is completed. Regular aerobic exercise program discussed. -01/28/2021,chronic,worse,was counseled regarding importance of weight loss.Discussed the patient's BMI. The BMI is above average; BMI management plan is completed.Regular aerobic exercise program discussed -08/31/2021,chronic,improving,was counseled regarding importance of weight loss.Discussed the patient's BMI.The BMI is above average; BMI management plan is completed.Regular aerobic exercise program discussed. -12/21/2021,chronic,improving,was counseled regarding importance of weight loss.Discussed the patient's BMI.The BMI is above average; BMI management plan is completed.Regular aerobic exercise program discussed. -06/02/2022,chronic,improving,was counseled regarding importance of weight loss.Discussed the patient's BMI.The BMI is above average; BMI management plan is completed.Regular aerobic exercise program discussed. Assessment & Plan (01/04/2022 8:25 PM CDT): -02/27/2020,08/29/2020,12/29/2020,chronic,worse,was counseled regarding importance of weight loss. Discussed the patient's BMI. The BMI is above average; BMI management plan is completed. Regular aerobic exercise program discussed. -01/28/2021,chronic,worse,was counseled regarding importance of weight loss.Discussed the patient's BMI. The BMI is above average; BMI management plan is completed.Regular aerobic exercise program discussed -08/31/2021,chronic,improving,was counseled regarding importance of weight loss.Discussed the patient's BMI.The BMI is above average; BMI management plan is completed.Regular aerobic exercise program discussed. -12/21/2021,chronic,improving,was counseled regarding importance of weight loss.Discussed the patient's BMI.The BMI is above average; BMI management plan is completed.Regular aerobic exercise program discussed. Assessment & Plan (09/25/2021 9:16 PM CDT): -02/27/2020,08/29/2020,12/29/2020,chronic,worse,was counseled regarding importance of weight loss. Discussed the patient's BMI. The BMI is above average; BMI management plan is completed. Regular aerobic exercise program discussed. -01/28/2021,chronic,worse,was counseled regarding importance of weight loss.Discussed the patient's BMI. The BMI is above average; BMI management plan is completed.Regular aerobic exercise program discussed -08/31/2021,chronic,improving,was counseled regarding importance of weight loss.Discussed the patient's BMI.The BMI is above average; BMI management plan is completed.Regular aerobic exercise program discussed. Assessment & Plan (02/01/2021 1:36 AM CDT): -02/27/2020,08/29/2020,12/29/2020,chronic,worse,was counseled regarding importance of weight loss. Discussed the patient's BMI. The BMI is above average; BMI management plan is completed. Regular aerobic exercise program discussed. -01/28/2021,chronic,worse,was counseled regarding importance of weight loss.Discussed the patient's BMI. The BMI is above average; BMI management plan is completed.Regular aerobic exercise program discussed Assessment & Plan (01/04/2021 2:41 PM CDT): -02/27/2020,08/29/2020,12/29/2020,chronic,worse,was counseled regarding importance of weight loss. Discussed the patient's BMI. The BMI is above average; BMI management plan is completed. Regular aerobic exercise program discussed. Assessment & Plan (08/31/2020 5:58 PM TURNAROUND ENGINEER): -02/27/2020,08/29/2020,chronic,worse,was counseled regarding importance of weight loss. Discussed the patient's BMI. The BMI is above average; BMI management plan is completed. Regular aerobic exercise program discussed. Assessment & Plan (03/02/2020 9:29 PM CDT): -02/27/2020,chronic,Obesity,worse,was counseled regarding importance of weight loss. Discussed the patient's BMI. The BMI is above average; BMI management plan is completed. Regular aerobic exercise program discussed. Assessment & Plan (09/02/2019 8:58 PM TURNAROUND ENGINEER): Obesity-worse,was counseled regarding importance of weight loss. Discussed the patient's BMI. The BMI is above average; BMI management plan is completed. Regular aerobic exercise program discussed. Assessment & Plan (02/04/2019 10:13 PM CDT): Obesity-worse,was counseled regarding importance of weight loss. Discussed the patient's BMI. The BMI is above average; BMI management plan is completed. Regular aerobic exercise program discussed. Assessment & Plan (09/01/2018 9:55 PM TURNAROUND ENGINEER): Obesity-worse,was counseled regarding importance of weight loss. Discussed the patient's BMI. The BMI is above average; BMI management plan is completed. Regular aerobic exercise program discussed. Assessment & Plan (04/27/2018 9:39 PM CDT): Obesity-worse,Pt was counseled regarding importance of weight loss. Discussed the patient's BMI. The BMI is above average; BMI management plan is completed. Regular aerobic exercise program discussed. Assessment & Plan (01/07/2018 7:33 PM CDT): Obesity-improving with lifestyle changes. Discussed the patient's BMI. The BMI is above average; BMI management plan is completed. Regular aerobic exercise program discussed. Chronic pansinusitis 05/03/2017 Assessment & Plan (06/28/2023 11:20 PM TURNAROUND ENGINEER): -02/27/2020,08/29/2020,12/29/2020,Chronic,use nasal spray,increase fluid intake. -08/31/2021,Chronic,use nasal spray,increase fluid intake. -12/21/2021,Chronic,stable,use nasal spray,increase fluid intake. -06/02/2022,Chronic,stable,use nasal spray,increase fluid intake. -11/30/2022,Chronic,stable,use nasal spray,increase fluid intake. -06/03/2023,Chronic,stable,use nasal spray,increase fluid intake. Assessment & Plan (12/16/2022 9:01 PM CDT): -02/27/2020,08/29/2020,12/29/2020,Chronic,use nasal spray,increase fluid intake. -08/31/2021,Chronic,use nasal spray,increase fluid intake. -12/21/2021,Chronic,stable,use nasal spray,increase fluid intake. -06/02/2022,Chronic,stable,use nasal spray,increase fluid intake. -11/30/2022,Chronic,stable,use nasal spray,increase fluid intake. Assessment & Plan (06/24/2022 12:35 AM TURNAROUND ENGINEER): -02/27/2020,08/29/2020,12/29/2020,Chronic,use nasal spray,increase fluid intake. -08/31/2021,Chronic,use nasal spray,increase fluid intake. -12/21/2021,Chronic,stable,use nasal spray,increase fluid intake. -06/02/2022,Chronic,stable,use nasal spray,increase fluid intake. Assessment & Plan (01/04/2022 8:25 PM CDT): -02/27/2020,08/29/2020,12/29/2020,Chronic,use nasal spray,increase fluid intake. -08/31/2021,Chronic,use nasal spray,increase fluid intake. -12/21/2021,Chronic,stable,use nasal spray,increase fluid intake. Assessment & Plan (09/25/2021 9:16 PM CDT): -02/27/2020,08/29/2020,12/29/2020,Chronic,use nasal spray,increase fluid intake. -08/31/2021,Chronic,use nasal spray,increase fluid intake. Assessment & Plan (01/04/2021 2:41 PM CDT): -02/27/2020,08/29/2020,12/29/2020,Chronic,use nasal spray,increase fluid intake. Assessment & Plan (08/31/2020 5:55 PM TURNAROUND ENGINEER): -02/27/2020,08/29/2020,Chronic-use nasal spray,increase fluid intake. Assessment & Plan (03/02/2020 9:23 PM CDT): -02/27/2020,Chronic-use nasal spray,increase fluid intake. Assessment & Plan (09/02/2019 8:58 PM TURNAROUND ENGINEER): Chronic-use nasal spray,increase fluid intake. Assessment & Plan (04/21/2019 10:30 AM CDT): Chronic-use nasal spray,increase fluid intake. Assessment & Plan (02/04/2019 10:12 PM CDT): Chronic-use nasal spray,increase fluid intake. Assessment & Plan (09/01/2018 10:00 PM TURNAROUND ENGINEER): Chronic-start zpak,use nasal spray,increase fluid intake. Assessment & Plan (05/11/2017 11:01 AM TURNAROUND ENGINEER): Patient demonstrates acute on chronic sinusitis. Patient has gotten somewhat better since his CT scan. Patient has been using saline nasal irrigation twice daily. Patient continues to demonstrate signs and symptoms consistent with an acute infection. Patient will be placed on Biaxin 500 mg b.i.d. times 10 days, Medrol Dosepak as directed, Mucinex D 1 p.o. b.i.d. times 10 days. Should his symptoms continue to persist post treatment he is to return back to my office for further evaluation. Assessment & Plan (05/04/2017 9:36 PM CDT): Chronic-take levaquin for 14d Assessment & Plan (05/04/2017 9:23 PM CDT): Chronic-recurrent,still has cough;foul odor to breath;dc benadryl.start claritin,use nasal spray.Recommend that he f/u with .order CT SINUS. Gastroesophageal reflux disease without esophagi tis 09/26/2015 Overview (10/08/2016): Gastroesophageal reflux disease without esophagitis Assessment & Plan (03/11/2024 12:17 PM CDT): -POA,Chronic,stable,con't protonix 40mg every day,avoid food triggers. -03/10/2024,stable,con't protonix 40mg every day,avoid food triggers. -03/11/2024,stable,con't protonix 40mg every day,avoid food triggers. Assessment & Plan (03/10/2024 2:34 PM CDT): -POA,Chronic,stable,con't protonix 40mg every day,avoid food triggers. -03/10/2024,stable,con't protonix 40mg every day,avoid food triggers. Assessment & Plan (03/09/2024 7:37 PM CDT): -POA,Chronic,stable,con't protonix 40mg every day,avoid food triggers. Assessment & Plan (03/07/2024 8:54 PM CDT): -POA,Chronic,stable,con't protonix 40mg every day,avoid food triggers. -03/07/2024,stable,con't protonix 40mg every day,avoid food triggers. Assessment & Plan (03/06/2024 7:50 PM CDT): -POA,Chronic,stable,con't protonix 40mg every day,avoid food triggers. Assessment & Plan (12/18/2023 5:18 PM CDT): -02/27/2020,08/29/2020,12/29/2020,Chronic,stable,con't protonix 40mg every day,avoid food triggers. -08/31/2021,Chronic,stable,con't protonix 40mg every day,avoid food triggers. -12/21/2021,Chronic,stable,con't protonix 40mg every day,avoid food triggers. -06/02/2022,Chronic,stable,con't protonix 40mg every day,avoid food triggers. -11/30/2022,Chronic,stable,con't protonix 40mg every day,avoid food triggers. -06/03/2023,Chronic,stable,con't protonix 40mg every day,avoid food triggers. -12/09/2023,Chronic,stable,con't protonix 40mg every day,avoid food triggers. Assessment & Plan (06/28/2023 11:22 PM TURNAROUND ENGINEER): -02/27/2020,08/29/2020,12/29/2020,Chronic,stable,con't protonix 40mg every day,avoid food triggers. -08/31/2021,Chronic,stable,con't protonix 40mg every day,avoid food triggers. -12/21/2021,Chronic,stable,con't protonix 40mg every day,avoid food triggers. -06/02/2022,Chronic,stable,con't protonix 40mg every day,avoid food triggers. -11/30/2022,Chronic,stable,con't protonix 40mg every day,avoid food triggers. -06/03/2023,Chronic,stable,con't protonix 40mg every day,avoid food triggers. Assessment & Plan (12/16/2022 9:02 PM CDT): -02/27/2020,08/29/2020,12/29/2020,Chronic,stable,con't protonix 40mg every day,avoid food triggers. -08/31/2021,Chronic,stable,con't protonix 40mg every day,avoid food triggers. -12/21/2021,Chronic,stable,con't protonix 40mg every day,avoid food triggers. -06/02/2022,Chronic,stable,con't protonix 40mg every day,avoid food triggers. -11/30/2022,Chronic,stable,con't protonix 40mg every day,avoid food triggers. Assessment & Plan (06/24/2022 12:36 AM TURNAROUND ENGINEER): -02/27/2020,08/29/2020,12/29/2020,Chronic,stable,con't protonix 40mg every day,avoid food triggers. -08/31/2021,Chronic,stable,con't protonix 40mg every day,avoid food triggers. -12/21/2021,Chronic,stable,con't protonix 40mg every day,avoid food triggers. -06/02/2022,Chronic,stable,con't protonix 40mg every day,avoid food triggers. Assessment & Plan (01/04/2022 8:26 PM CDT): -02/27/2020,08/29/2020,12/29/2020,Chronic,stable,con't protonix 40mg every day,avoid food triggers. -08/31/2021,Chronic,stable,con't protonix 40mg every day,avoid food triggers. -12/21/2021,Chronic,stable,con't protonix 40mg every day,avoid food triggers. Assessment & Plan (09/25/2021 9:17 PM CDT): -02/27/2020,08/29/2020,12/29/2020,Chronic,stable,con't protonix 40mg every day,avoid food triggers. -08/31/2021,Chronic,stable,con't protonix 40mg every day,avoid food triggers. Assessment & Plan (01/04/2021 2:42 PM CDT): -02/27/2020,08/29/2020,12/29/2020,Chronic,stable,con't protonix 40mg every day,avoid food triggers. Assessment & Plan (08/31/2020 5:57 PM TURNAROUND ENGINEER): -02/27/2020,08/29/2020,Chronic-stable,con't protonix 40mg every day,avoid food triggers. Assessment & Plan (03/02/2020 9:26 PM CDT): -02/27/2020,Chronic-stable,con't protonix 40mg every day. Assessment & Plan (09/02/2019 8:57 PM TURNAROUND ENGINEER): Chronic-stable,con't protonix Assessment & Plan (04/21/2019 10:30 AM CDT): Chronic-stable,con't protonix Assessment & Plan (02/04/2019 10:12 PM CDT): Chronic-stable,con't protonix Assessment & Plan (09/01/2018 9:56 PM TURNAROUND ENGINEER): Chronic-stable,con't protonix Assessment & Plan (04/27/2018 9:38 PM CDT): Chronic-stable,con't protonix Assessment & Plan (01/07/2018 7:32 PM CDT): Chronic-stable,con't protonix Assessment & Plan (09/10/2017 12:49 PM TURNAROUND ENGINEER): Chronic-stable,con't protonix Assessment & Plan (05/04/2017 9:27 PM CDT): Chronic-con't protonix Benign prostatic hyperplasia 08/20/2014 Overview (10/07/2016): BPH (benign prostatic hypertrophy) Assessment & Plan (12/18/2023 5:16 PM CDT): -02/27/2020,08/29/2020,12/29/2020,chronic,unchanged,con't flomax .4mg every day. -08/31/2021,chronic,stable,con't flomax .4mg every day. -12/21/2021,chronic,stable,con't flomax .4mg every day. -06/02/2022,chronic,stable,con't flomax .4mg every day. -11/30/2022,chronic,stable,con't flomax .4mg every day. -06/03/2023,chronic,stable,con't flomax .4mg every day. -12/09/2023,chronic,stable,con't flomax .4mg every day. Assessment & Plan (06/28/2023 11:18 PM TURNAROUND ENGINEER): -02/27/2020,08/29/2020,12/29/2020,chronic,unchanged,con't flomax .4mg every day. -08/31/2021,chronic,stable,con't flomax .4mg every day. -12/21/2021,chronic,stable,con't flomax .4mg every day. -06/02/2022,chronic,stable,con't flomax .4mg every day. -11/30/2022,chronic,stable,con't flomax .4mg every day. -06/03/2023,chronic,stable,con't flomax .4mg every day. Assessment & Plan (12/16/2022 9:03 PM CDT): -02/27/2020,08/29/2020,12/29/2020,chronic,unchanged,con't flomax .4mg every day. -08/31/2021,chronic,stable,con't flomax .4mg every day. -12/21/2021,chronic,stable,con't flomax .4mg every day. -06/02/2022,chronic,stable,con't flomax .4mg every day. -11/30/2022,chronic,stable,con't flomax .4mg every day. Assessment & Plan (06/24/2022 12:36 AM TURNAROUND ENGINEER): -02/27/2020,08/29/2020,12/29/2020,chronic,unchanged,con't flomax .4mg every day. -08/31/2021,chronic,stable,con't flomax .4mg every day. -12/21/2021,chronic,stable,con't flomax .4mg every day. -06/02/2022,chronic,stable,con't flomax .4mg every day. Assessment & Plan (01/04/2022 8:27 PM CDT): -02/27/2020,08/29/2020,12/29/2020,chronic,unchanged,con't flomax .4mg every day. -08/31/2021,chronic,stable,con't flomax .4mg every day. -12/21/2021,chronic,stable,con't flomax .4mg every day. Assessment & Plan (09/25/2021 9:17 PM CDT): -02/27/2020,08/29/2020,12/29/2020,chronic,unchanged,con't flomax .4mg every day. -08/31/2021,chronic,stable,con't flomax .4mg every day. Assessment & Plan (01/04/2021 2:42 PM CDT): -02/27/2020,08/29/2020,12/29/2020,chronic,unchanged,con't flomax .4mg every day. Assessment & Plan (08/31/2020 5:54 PM TURNAROUND ENGINEER): -02/27/2020,08/29/2020,chronic,unchanged,con't flomax .4mg every day. Assessment & Plan (03/02/2020 9:23 PM CDT): -02/27/2020,chronic,unchanged,con't flomax .4mg every day. Assessment & Plan (09/02/2019 8:55 PM TURNAROUND ENGINEER): -chronic,unchanged,con't flomax Assessment & Plan (04/21/2019 10:29 AM CDT): -chronic,unchanged,con't flomax Assessment & Plan (02/04/2019 10:11 PM CDT): -chronic,unchanged,con't flomax Assessment & Plan (09/01/2018 9:56 PM TURNAROUND ENGINEER): -chronic,unchanged,con't flomax Assessment & Plan (04/27/2018 9:40 PM CDT): -chronic,con't flomax Hypertension associated with diabetes 08/20/2014 Overview (10/07/2016): Essential hypertension Assessment & Plan (03/11/2024 12:17 PM CDT): -POA,chronic,BP 116/98,stable,Continue metoprolol 125mg daily,low salt diet,SSI,weight loss. -03/10/2024,BP 149/94,stable,Continue metoprolol 125mg daily,low salt diet,SSI,weight loss. -03/11/2024,BP 119/74,stable,Continue metoprolol 125mg daily,low salt diet,SSI,weight loss. Assessment & Plan (03/10/2024 2:33 PM CDT): -POA,chronic,BP 116/98,stable,Continue metoprolol 125mg daily,low salt diet,SSI,weight loss. -03/10/2024,BP 149/94,stable,Continue metoprolol 125mg daily,low salt diet,SSI,weight loss. Assessment & Plan (03/09/2024 7:39 PM CDT): -POA,chronic,BP 116/98,stable,Continue metoprolol 125mg daily,low salt diet,SSI,weight loss. Assessment & Plan (03/07/2024 8:53 PM CDT): -POA,chronic,BP 135/92,stable,Continue metoprolol 25mg daily,dietary sodium restriction,weight loss,regular aerobic exercise. -03/07/2024,BP 144/70,stable,Continue metoprolol,sodium restriction,weight loss,regular aerobic exercise. Assessment & Plan (03/06/2024 7:52 PM CDT): -POA,chronic,BP 135/92,stable,Continue metoprolol 25mg daily,dietary sodium restriction,weight loss,regular aerobic exercise. Assessment & Plan (12/18/2023 5:19 PM CDT): -02/27/2020,chronic,Hypertension is improving with treatment.BP 136/85,con't cartia 240mg qd. Continue current treatment regimen. Dietary sodium restriction. Weight loss. Regular aerobic exercise. Blood pressure will be reassessed at the next regular appointment. -08/29/2020,chronic,BP 120/82,stable,Continue current treatment regimen,dietary sodium restriction,weight loss,regular aerobic exercise. -12/29/2020,chronic,BP 120/78,stable,Continue current treatment regimen,metoprolol 25mg daily,dietary sodium restriction,weight loss,regular aerobic exercise. -08/31/2021,chronic,BP 100/80,stable,Continue current treatment regimen,metoprolol 25mg daily,dietary sodium restriction,weight loss,regular aerobic exercise. -12/21/2021,chronic,BP 122/66,controlled,Continue metoprolol 25mg daily,dietary sodium restriction,weight loss,regular aerobic exercise. -06/02/2022,chronic,BP 1142/72,controlled,Continue metoprolol 25mg daily,dietary sodium restriction,weight loss,regular aerobic exercise. -11/30/2022,chronic,BP 120/76,controlled,Continue metoprolol 25mg daily,dietary sodium restriction,weight loss,regular aerobic exercise. -06/03/2023,chronic,BP 90/66,controlled,Continue metoprolol 25mg daily,dietary sodium restriction,weight loss,regular aerobic exercise. -12/09/2023,chronic,BP 90/66,controlled,Continue metoprolol 25mg daily,dietary sodium restriction,weight loss,regular aerobic exercise. Assessment & Plan (06/28/2023 11:23 PM TURNAROUND ENGINEER): -02/27/2020,chronic,Hypertension is improving with treatment.BP 136/85,con't cartia 240mg qd. Continue current treatment regimen. Dietary sodium restriction. Weight loss. Regular aerobic exercise. Blood pressure will be reassessed at the next regular appointment. -08/29/2020,chronic,BP 120/82,stable,Continue current treatment regimen,dietary sodium restriction,weight loss,regular aerobic exercise. -12/29/2020,chronic,BP 120/78,stable,Continue current treatment regimen,metoprolol 25mg daily,dietary sodium restriction,weight loss,regular aerobic exercise. -08/31/2021,chronic,BP 100/80,stable,Continue current treatment regimen,metoprolol 25mg daily,dietary sodium restriction,weight loss,regular aerobic exercise. -12/21/2021,chronic,BP 122/66,controlled,Continue metoprolol 25mg daily,dietary sodium restriction,weight loss,regular aerobic exercise. -06/02/2022,chronic,BP 1142/72,controlled,Continue metoprolol 25mg daily,dietary sodium restriction,weight loss,regular aerobic exercise. -11/30/2022,chronic,BP 120/76,controlled,Continue metoprolol 25mg daily,dietary sodium restriction,weight loss,regular aerobic exercise. -06/03/2023,chronic,BP 90/66,controlled,Continue metoprolol 25mg daily,dietary sodium restriction,weight loss,regular aerobic exercise. Assessment & Plan (12/16/2022 8:54 PM CDT): -02/27/2020,chronic,Hypertension is improving with treatment.BP 136/85,con't cartia 240mg qd. Continue current treatment regimen. Dietary sodium restriction. Weight loss. Regular aerobic exercise. Blood pressure will be reassessed at the next regular appointment. -08/29/2020,chronic,BP 120/82,stable,Continue current treatment regimen,dietary sodium restriction,weight loss,regular aerobic exercise. -12/29/2020,chronic,BP 120/78,stable,Continue current treatment regimen,metoprolol 25mg daily,dietary sodium restriction,weight loss,regular aerobic exercise. -08/31/2021,chronic,BP 100/80,stable,Continue current treatment regimen,metoprolol 25mg daily,dietary sodium restriction,weight loss,regular aerobic exercise. -12/21/2021,chronic,BP 122/66,controlled,Continue metoprolol 25mg daily,dietary sodium restriction,weight loss,regular aerobic exercise. -06/02/2022,chronic,BP 1142/72,controlled,Continue metoprolol 25mg daily,dietary sodium restriction,weight loss,regular aerobic exercise. -11/30/2022,chronic,BP 120/76,controlled,Continue metoprolol 25mg daily,dietary sodium restriction,weight loss,regular aerobic exercise. Assessment & Plan (06/24/2022 12:28 AM TURNAROUND ENGINEER): -02/27/2020,chronic,Hypertension is improving with treatment.BP 136/85,con't cartia 240mg qd. Continue current treatment regimen. Dietary sodium restriction. Weight loss. Regular aerobic exercise. Blood pressure will be reassessed at the next regular appointment. -08/29/2020,chronic,BP 120/82,stable,Continue current treatment regimen,dietary sodium restriction,weight loss,regular aerobic exercise. -12/29/2020,chronic,BP 120/78,stable,Continue current treatment regimen,metoprolol 25mg daily,dietary sodium restriction,weight loss,regular aerobic exercise. -08/31/2021,chronic,BP 100/80,stable,Continue current treatment regimen,metoprolol 25mg daily,dietary sodium restriction,weight loss,regular aerobic exercise. -12/21/2021,chronic,BP 122/66,controlled,Continue metoprolol 25mg daily,dietary sodium restriction,weight loss,regular aerobic exercise. -06/02/2022,chronic,BP 1142/72,controlled,Continue metoprolol 25mg daily,dietary sodium restriction,weight loss,regular aerobic exercise. Assessment & Plan (01/04/2022 8:21 PM CDT): -02/27/2020,chronic,Hypertension is improving with treatment.BP 136/85,con't cartia 240mg qd. Continue current treatment regimen. Dietary sodium restriction. Weight loss. Regular aerobic exercise. Blood pressure will be reassessed at the next regular appointment. -08/29/2020,chronic,BP 120/82,stable,Continue current treatment regimen,dietary sodium restriction,weight loss,regular aerobic exercise. -12/29/2020,chronic,BP 120/78,stable,Continue current treatment regimen,metoprolol 25mg daily,dietary sodium restriction,weight loss,regular aerobic exercise. -08/31/2021,chronic,BP 100/80,stable,Continue current treatment regimen,metoprolol 25mg daily,dietary sodium restriction,weight loss,regular aerobic exercise. -12/21/2021,chronic,BP 122/66,controlled,Continue metoprolol 25mg daily,dietary sodium restriction,weight loss,regular aerobic exercise. Assessment & Plan (09/25/2021 9:09 PM CDT): -02/27/2020,chronic,Hypertension is improving with treatment.BP 136/85,con't cartia 240mg qd. Continue current treatment regimen. Dietary sodium restriction. Weight loss. Regular aerobic exercise. Blood pressure will be reassessed at the next regular appointment. -08/29/2020,chronic,BP 120/82,stable,Continue current treatment regimen,dietary sodium restriction,weight loss,regular aerobic exercise. -12/29/2020,chronic,BP 120/78,stable,Continue current treatment regimen,metoprolol 25mg daily,dietary sodium restriction,weight loss,regular aerobic exercise. -08/31/2021,chronic,BP 100/80,stable,Continue current treatment regimen,metoprolol 25mg daily,dietary sodium restriction,weight loss,regular aerobic exercise. Assessment & Plan (01/04/2021 2:37 PM CDT): -02/27/2020,chronic,Hypertension is improving with treatment.BP 136/85,con't cartia 240mg qd. Continue current treatment regimen. Dietary sodium restriction. Weight loss. Regular aerobic exercise. Blood pressure will be reassessed at the next regular appointment. -08/29/2020,chronic,BP 120/82,stable,Continue current treatment regimen,dietary sodium restriction,weight loss,regular aerobic exercise. -12/29/2020,chronic,BP 120/78,stable,Continue current treatment regimen,metoprolol 25mg daily,dietary sodium restriction,weight loss,regular aerobic exercise. Assessment & Plan (08/31/2020 5:56 PM TURNAROUND ENGINEER): -02/27/2020,chronic,Hypertension is improving with treatment.BP 136/85,con't cartia 240mg qd. Continue current treatment regimen. Dietary sodium restriction. Weight loss. Regular aerobic exercise. Blood pressure will be reassessed at the next regular appointment. -08/29/2020,chronic,BP 120/82,stable,Continue current treatment regimen,dietary sodium restriction,weight loss,regular aerobic exercise. Assessment & Plan (03/02/2020 9:26 PM CDT): -02/27/2020,chronic,Hypertension is improving with treatment.BP 136/85,con't cartia 240mg qd. Continue current treatment regimen. Dietary sodium restriction. Weight loss. Regular aerobic exercise. Blood pressure will be reassessed at the next regular appointment. Assessment & Plan (09/02/2019 8:55 PM TURNAROUND ENGINEER): -Hypertension is improving with treatment.BP 132/68,con't cartia. Continue current treatment regimen. Dietary sodium restriction. Weight loss. Regular aerobic exercise. Blood pressure will be reassessed at the next regular appointment. Assessment & Plan (04/21/2019 10:29 AM CDT): Hypertension is improving with treatment.BP 118/70,con't cartia. Continue current treatment regimen. Dietary sodium restriction. Weight loss. Regular aerobic exercise. Blood pressure will be reassessed at the next regular appointment. Assessment & Plan (02/04/2019 10:11 PM CDT): Hypertension is improving with treatment.BP 120/80,con't cartia. Continue current treatment regimen. Dietary sodium restriction. Weight loss. Regular aerobic exercise. Blood pressure will be reassessed at the next regular appointment. Assessment & Plan (09/01/2018 9:54 PM TURNAROUND ENGINEER): Hypertension is improving with treatment.BP 110/70,con't cartia. Continue current treatment regimen. Dietary sodium restriction. Weight loss. Regular aerobic exercise. Blood pressure will be reassessed at the next regular appointment. Assessment & Plan (04/27/2018 9:37 PM CDT): Hypertension is improving with treatment.BP 110/70. Continue current treatment regimen. Dietary sodium restriction. Weight loss. Regular aerobic exercise. Blood pressure will be reassessed at the next regular appointment. Assessment & Plan (01/07/2018 7:32 PM CDT): Hypertension is improving with treatment.BP 96/64,controlled. Continue current treatment regimen. Dietary sodium restriction. Weight loss. Regular aerobic exercise. Blood pressure will be reassessed at the next regular appointment. Assessment & Plan (09/10/2017 12:50 PM TURNAROUND ENGINEER): Hypertension is improving with treatment.BP 100/80,controlled. Continue current treatment regimen. Dietary sodium restriction. Weight loss. Regular aerobic exercise. Blood pressure will be reassessed at the next regular appointment. Assessment & Plan (05/04/2017 9:26 PM CDT): Hypertension is improving with treatment. Continue current treatment regimen. Dietary sodium restriction. Weight loss. Regular aerobic exercise. Blood pressure will be reassessed at the next regular appointment. Coronary artery disease invo lving [place] coronary artery of [place] heart without angina pectoris 08/20/2014 Overview (10/07/2016): Coronary atherosclerosis Assessment & Plan (03/11/2024 12:19 PM CDT): -POA,chronic,stable,con't lipitor,imdur,metoprolol,was advised to maintain a low fat, low cholesterol diet. -03/10/2024,stable,con't lipitor,imdur,metoprolol,maintain a low fat,low cholesterol diet. -03/11/2024,stable,con't lipitor,imdur,metoprolol,maintain a low fat,low cholesterol diet. Assessment & Plan (03/10/2024 2:35 PM CDT): -POA,chronic,stable,con't lipitor,imdur,metoprolol,was advised to maintain a low fat, low cholesterol diet. -03/10/2024,stable,con't lipitor,imdur,metoprolol,maintain a low fat,low cholesterol diet. Assessment & Plan (03/09/2024 7:36 PM CDT): -POA,chronic,stable,con't lipitor,imdur,metoprolol,was advised to maintain a low fat, low cholesterol diet. Assessment & Plan (03/07/2024 8:56 PM CDT): -POA,chronic,stable,con't lipitor,imdur,metoprolol,was advised to maintain a low fat, low cholesterol diet. -03/07/2024,stable,con't lipitor,imdur,metoprolol,low fat, low cholesterol diet. Assessment & Plan (03/06/2024 7:50 PM CDT): -POA,chronic,stable,con't lipitor,imdur,metoprolol,was advised to maintain a low fat, low cholesterol diet. Assessment & Plan (12/18/2023 5:18 PM CDT): -02/27/2020,08/29/2020,12/29/2020,chronic,Coronary artery disease is improving with treatment. Continue current treatment regimen. Dietary sodium restriction. Weight loss. Regular aerobic exercise. -08/31/2021,chronic,con't lipitor,imdur,metoprolol,Ayush F Charter was advised to maintain a low fat, low cholesterol diet. -06/02/2022,chronic,stable,con't lipitor,imdur,metoprolol,Ayush F Charter was advised to maintain a low fat, low cholesterol diet. -11/30/2022,chronic,stable,con't lipitor,imdur,metoprolol,Ayush F Charter was advised to maintain a low fat, low cholesterol diet. -06/03/2023,chronic,stable,con't lipitor,imdur,metoprolol,was advised to maintain a low fat, low cholesterol diet. -12/09/2023,chronic,stable,con't lipitor,imdur,metoprolol,was advised to maintain a low fat, low cholesterol diet. Assessment & Plan (06/28/2023 11:22 PM TURNAROUND ENGINEER): -02/27/2020,08/29/2020,12/29/2020,chronic,Coronary artery disease is improving with treatment. Continue current treatment regimen. Dietary sodium restriction. Weight loss. Regular aerobic exercise. -08/31/2021,chronic,con't lipitor,imdur,metoprolol,Ayush F Charter was advised to maintain a low fat, low cholesterol diet. -06/02/2022,chronic,stable,con't lipitor,imdur,metoprolol,Ayush F Charter was advised to maintain a low fat, low cholesterol diet. -11/30/2022,chronic,stable,con't lipitor,imdur,metoprolol,Ayush F Charter was advised to maintain a low fat, low cholesterol diet. -06/03/2023,chronic,stable,con't lipitor,imdur,metoprolol,was advised to maintain a low fat, low cholesterol diet. Assessment & Plan (12/16/2022 8:56 PM CDT): -02/27/2020,08/29/2020,12/29/2020,chronic,Coronary artery disease is improving with treatment. Continue current treatment regimen. Dietary sodium restriction. Weight loss. Regular aerobic exercise. -08/31/2021,chronic,con't lipitor,imdur,metoprolol,Ayush F Charter was advised to maintain a low fat, low cholesterol diet. -06/02/2022,chronic,stable,con't lipitor,imdur,metoprolol,Ayush F Charter was advised to maintain a low fat, low cholesterol diet. -11/30/2022,chronic,stable,con't lipitor,imdur,metoprolol,Ayush F Charter was advised to maintain a low fat, low cholesterol diet. Assessment & Plan (06/24/2022 12:29 AM TURNAROUND ENGINEER): -02/27/2020,08/29/2020,12/29/2020,chronic,Coronary artery disease is improving with treatment. Continue current treatment regimen. Dietary sodium restriction. Weight loss. Regular aerobic exercise. -08/31/2021,chronic,con't lipitor,imdur,metoprolol,Ayush F Charter was advised to maintain a low fat, low cholesterol diet. -06/02/2022,chronic,stable,con't lipitor,imdur,metoprolol,Ayush F Charter was advised to maintain a low fat, low cholesterol diet. Assessment & Plan (01/04/2022 8:23 PM CDT): -02/27/2020,08/29/2020,12/29/2020,chronic,Coronary artery disease is improving with treatment. Continue current treatment regimen. Dietary sodium restriction. Weight loss. Regular aerobic exercise. -08/31/2021,chronic,con't lipitor,imdur,metoprolol,Ayush F Charter was advised to maintain a low fat, low cholesterol diet. -12/21/2021,chronic,stable,con't lipitor,imdur,metoprolol,Ayush F Charter was advised to maintain a low fat, low cholesterol diet. Assessment & Plan (09/25/2021 9:11 PM CDT): -02/27/2020,08/29/2020,12/29/2020,chronic,Coronary artery disease is improving with treatment. Continue current treatment regimen. Dietary sodium restriction. Weight loss. Regular aerobic exercise. -08/31/2021,chronic,con't lipitor,imdur,metoprolol,Ayush F Charter was advised to maintain a low fat, low cholesterol diet. Assessment & Plan (01/04/2021 2:36 PM CDT): -02/27/2020,08/29/2020,12/29/2020,chronic,Coronary artery disease is improving with treatment. Continue current treatment regimen. Dietary sodium restriction. Weight loss. Regular aerobic exercise. Assessment & Plan (08/31/2020 5:55 PM TURNAROUND ENGINEER): -02/27/2020,08/29/2020,chronic,Coronary artery disease is improving with treatment. Continue current treatment regimen. Dietary sodium restriction. Weight loss. Regular aerobic exercise. Assessment & Plan (03/02/2020 9:24 PM CDT): -02/27/2020,chronic,Coronary artery disease is improving with treatment. Continue current treatment regimen. Dietary sodium restriction. Weight loss. Regular aerobic exercise. Assessment & Plan (01/07/2018 7:32 PM CDT): Coronary artery disease is improving with treatment. Continue current treatment regimen. Dietary sodium restriction. Weight loss. Regular aerobic exercise. History of coronary artery bypass surgery 2013 Overview (10/08/2016): AORTOCORONARY BYPASS Assessment & Plan (03/11/2024 12:17 PM CDT): -POA,chronic,Stable,was advised to maintain a low fat, low cholesterol diet,maintain a regular cardiovascular exercise program,counseled regarding importance of weight loss. -03/10/2024,Stable,maintain a low fat, low cholesterol diet,cardiovascular exercise program. -03/11/2024,Stable,maintain a low fat, low cholesterol diet,cardiovascular exercise program. Assessment & Plan (03/10/2024 2:34 PM CDT): -POA,chronic,Stable,was advised to maintain a low fat, low cholesterol diet,maintain a regular cardiovascular exercise program,counseled regarding importance of weight loss. -03/10/2024,Stable,maintain a low fat, low cholesterol diet,cardiovascular exercise program. Assessment & Plan (03/09/2024 7:37 PM CDT): -POA,chronic,Stable,was advised to maintain a low fat, low cholesterol diet,maintain a regular cardiovascular exercise program,counseled regarding importance of weight loss. Assessment & Plan (03/07/2024 8:54 PM CDT): -POA,chronic,Stable,was advised to maintain a low fat, low cholesterol diet,maintain a regular cardiovascular exercise program,counseled regarding importance of weight loss. -03/07/2024,Stable,was advised to maintain a low fat, low cholesterol diet,maintain a regular cardiovascular exercise program,counseled regarding importance of weight loss. Assessment & Plan (03/06/2024 7:51 PM CDT): -POA,chronic,Stable,was advised to maintain a low fat, low cholesterol diet,maintain a regular cardiovascular exercise program,counseled regarding importance of weight loss. Assessment & Plan (12/18/2023 5:19 PM CDT): -02/27/2020,08/29/2020,12/29/2020,chronic,Stable,was advised to maintain a low fat, low cholesterol diet, encouraged to maintain a regular cardiovascular exercise program,counseled regarding importance of weight loss. -08/31/2021,chronic,Stable,was advised to maintain a low fat, low cholesterol diet, encouraged to maintain a regular cardiovascular exercise program,counseled regarding importance of weight loss. -12/21/2021,chronic,Stable,was advised to maintain a low fat, low cholesterol diet, encouraged to maintain a regular cardiovascular exercise program,counseled regarding importance of weight loss. -06/02/2022,chronic,Stable,was advised to maintain a low fat, low cholesterol diet, encouraged to maintain a regular cardiovascular exercise program,counseled regarding importance of weight loss. -11/30/2022,chronic,Stable,was advised to maintain a low fat, low cholesterol diet, encouraged to maintain a regular cardiovascular exercise program,counseled regarding importance of weight loss. -06/03/2023,chronic,Stable,was advised to maintain a low fat, low cholesterol diet, encouraged to maintain a regular cardiovascular exercise program,counseled regarding importance of weight loss. -12/09/2023,chronic,Stable,was advised to maintain a low fat, low cholesterol diet, encouraged to maintain a regular cardiovascular exercise program,counseled regarding importance of weight loss. Assessment & Plan (06/28/2023 11:22 PM TURNAROUND ENGINEER): -02/27/2020,08/29/2020,12/29/2020,chronic,Stable,was advised to maintain a low fat, low cholesterol diet, encouraged to maintain a regular cardiovascular exercise program,counseled regarding importance of weight loss. -08/31/2021,chronic,Stable,was advised to maintain a low fat, low cholesterol diet, encouraged to maintain a regular cardiovascular exercise program,counseled regarding importance of weight loss. -12/21/2021,chronic,Stable,was advised to maintain a low fat, low cholesterol diet, encouraged to maintain a regular cardiovascular exercise program,counseled regarding importance of weight loss. -06/02/2022,chronic,Stable,was advised to maintain a low fat, low cholesterol diet, encouraged to maintain a regular cardiovascular exercise program,counseled regarding importance of weight loss. -11/30/2022,chronic,Stable,was advised to maintain a low fat, low cholesterol diet, encouraged to maintain a regular cardiovascular exercise program,counseled regarding importance of weight loss. -06/03/2023,chronic,Stable,was advised to maintain a low fat, low cholesterol diet, encouraged to maintain a regular cardiovascular exercise program,counseled regarding importance of weight loss. Assessment & Plan (12/16/2022 8:55 PM CDT): -02/27/2020,08/29/2020,12/29/2020,chronic,Stable,was advised to maintain a low fat, low cholesterol diet, encouraged to maintain a regular cardiovascular exercise program,counseled regarding importance of weight loss. -08/31/2021,chronic,Stable,was advised to maintain a low fat, low cholesterol diet, encouraged to maintain a regular cardiovascular exercise program,counseled regarding importance of weight loss. -12/21/2021,chronic,Stable,was advised to maintain a low fat, low cholesterol diet, encouraged to maintain a regular cardiovascular exercise program,counseled regarding importance of weight loss. -06/02/2022,chronic,Stable,was advised to maintain a low fat, low cholesterol diet, encouraged to maintain a regular cardiovascular exercise program,counseled regarding importance of weight loss. -11/30/2022,chronic,Stable,was advised to maintain a low fat, low cholesterol diet, encouraged to maintain a regular cardiovascular exercise program,counseled regarding importance of weight loss. Assessment & Plan (06/24/2022 12:28 AM TURNAROUND ENGINEER): -02/27/2020,08/29/2020,12/29/2020,chronic,Stable,was advised to maintain a low fat, low cholesterol diet, encouraged to maintain a regular cardiovascular exercise program,counseled regarding importance of weight loss. -08/31/2021,chronic,Stable,was advised to maintain a low fat, low cholesterol diet, encouraged to maintain a regular cardiovascular exercise program,counseled regarding importance of weight loss. -12/21/2021,chronic,Stable,was advised to maintain a low fat, low cholesterol diet, encouraged to maintain a regular cardiovascular exercise program,counseled regarding importance of weight loss. -06/02/2022,chronic,Stable,was advised to maintain a low fat, low cholesterol diet, encouraged to maintain a regular cardiovascular exercise program,counseled regarding importance of weight loss. Assessment & Plan (01/04/2022 8:22 PM CDT): -02/27/2020,08/29/2020,12/29/2020,chronic,Stable,was advised to maintain a low fat, low cholesterol diet, encouraged to maintain a regular cardiovascular exercise program,counseled regarding importance of weight loss. -08/31/2021,chronic,Stable,was advised to maintain a low fat, low cholesterol diet, encouraged to maintain a regular cardiovascular exercise program,counseled regarding importance of weight loss. -12/21/2021,chronic,Stable,was advised to maintain a low fat, low cholesterol diet, encouraged to maintain a regular cardiovascular exercise program,counseled regarding importance of weight loss. Assessment & Plan (09/25/2021 9:09 PM CDT): -02/27/2020,08/29/2020,12/29/2020,chronic,Stable,was advised to maintain a low fat, low cholesterol diet, encouraged to maintain a regular cardiovascular exercise program,counseled regarding importance of weight loss. -08/31/2021,chronic,Stable,was advised to maintain a low fat, low cholesterol diet, encouraged to maintain a regular cardiovascular exercise program,counseled regarding importance of weight loss. Assessment & Plan (01/04/2021 2:38 PM CDT): -02/27/2020,08/29/2020,12/29/2020,chronic,Stable,was advised to maintain a low fat, low cholesterol diet, encouraged to maintain a regular cardiovascular exercise program,counseled regarding importance of weight loss. Assessment & Plan (08/31/2020 5:57 PM TURNAROUND ENGINEER): -02/27/2020,08/29/2020,chronic,Stable,was advised to maintain a low fat, low cholesterol diet, encouraged to maintain a regular cardiovascular exercise program,counseled regarding importance of weight loss. Assessment & Plan (03/02/2020 9:27 PM CDT): -02/27/2020,chronic,Stable,was advised to maintain a low fat, low cholesterol diet, encouraged to maintain a regular cardiovascular exercise program,counseled regarding importance of weight loss. Assessment & Plan (09/02/2019 8:56 PM TURNAROUND ENGINEER): Stable-was advised to maintain a low fat, low cholesterol diet, encouraged to maintain a regular cardiovascular exercise program,counseled regarding importance of weight loss. Assessment & Plan (04/21/2019 10:29 AM CDT): Stable-was advised to maintain a low fat, low cholesterol diet, encouraged to maintain a regular cardiovascular exercise program,counseled regarding importance of weight loss. Assessment & Plan (02/04/2019 10:11 PM CDT): Stable-was advised to maintain a low fat, low cholesterol diet, encouraged to maintain a regular cardiovascular exercise program,counseled regarding importance of weight loss. Assessment & Plan (09/01/2018 9:58 PM TURNAROUND ENGINEER): Stable-was advised to maintain a low fat, low cholesterol diet, encouraged to maintain a regular cardiovascular exercise program,counseled regarding importance of weight loss. Assessment & Plan (04/27/2018 9:42 PM CDT): Stable- was advised to maintain a low fat, low cholesterol diet. Patient was encouraged to maintain a regular cardiovascular exercise program.Pt was counseled regarding importance of weight loss. Assessment & Plan (09/10/2017 12:49 PM TURNAROUND ENGINEER): Stable- was advised to maintain a low fat, low cholesterol diet. Patient was encouraged to maintain a regular cardiovascular exercise program.Pt was counseled regarding importance of weight loss. Assessment & Plan (05/04/2017 9:28 PM CDT): Stable-con't zocor, was advised to maintain a low fat, low cholesterol diet. Patient was encouraged to maintain a regular cardiovascular exercise program. Osteoarthritis 06/18/2013 Overview (10/08/2016): Osteoarthritis Assessment & Plan (12/18/2023 5:22 PM CDT): -02/27/2020,08/29/2020,Chronic,unchanged,con't naproxen. -12/29/2020,chronic,con't ibuprofen 800mg tid. -08/31/2021,chronic,unchanged,con't ibuprofen 800mg tid,was encouraged to maintain a regular cardiovascular exercise program,was counseled regarding importance of weight loss. -06/02/2022,chronic,unchanged,con't ibuprofen 800mg tid,was encouraged to maintain a regular cardiovascular exercise program,was counseled regarding importance of weight loss. -11/30/2022,chronic,unchanged,con't ibuprofen 800mg tid,was encouraged to maintain a regular cardiovascular exercise program,was counseled regarding importance of weight loss. -06/03/2023,chronic,unchanged,con't ibuprofen 800mg tid,was encouraged to maintain a regular cardiovascular exercise program,was counseled regarding importance of weight loss. -12/09/2023,chronic,unchanged,con't ibuprofen 800mg tid,was encouraged to maintain a regular cardiovascular exercise program,was counseled regarding importance of weight loss. Assessment & Plan (06/28/2023 11:27 PM TURNAROUND ENGINEER): -02/27/2020,08/29/2020,Chronic,unchanged,con't naproxen. -12/29/2020,chronic,con't ibuprofen 800mg tid. -08/31/2021,chronic,unchanged,con't ibuprofen 800mg tid,was encouraged to maintain a regular cardiovascular exercise program,was counseled regarding importance of weight loss. -06/02/2022,chronic,unchanged,con't ibuprofen 800mg tid,was encouraged to maintain a regular cardiovascular exercise program,was counseled regarding importance of weight loss. -11/30/2022,chronic,unchanged,con't ibuprofen 800mg tid,was encouraged to maintain a regular cardiovascular exercise program,was counseled regarding importance of weight loss. -06/03/2023,chronic,unchanged,con't ibuprofen 800mg tid,was encouraged to maintain a regular cardiovascular exercise program,was counseled regarding importance of weight loss. Assessment & Plan (12/16/2022 9:04 PM CDT): -02/27/2020,08/29/2020,Chronic,unchanged,con't naproxen. -12/29/2020,chronic,con't ibuprofen 800mg tid. -08/31/2021,chronic,unchanged,con't ibuprofen 800mg tid,was encouraged to maintain a regular cardiovascular exercise program,was counseled regarding importance of weight loss. -06/02/2022,chronic,unchanged,con't ibuprofen 800mg tid,was encouraged to maintain a regular cardiovascular exercise program,was counseled regarding importance of weight loss. -11/30/2022,chronic,unchanged,con't ibuprofen 800mg tid,was encouraged to maintain a regular cardiovascular exercise program,was counseled regarding importance of weight loss. Assessment & Plan (06/24/2022 12:41 AM TURNAROUND ENGINEER): -02/27/2020,08/29/2020,Chronic,unchanged,con't naproxen. -12/29/2020,chronic,con't ibuprofen 800mg tid. -08/31/2021,chronic,unchanged,con't ibuprofen 800mg tid,was encouraged to maintain a regular cardiovascular exercise program,was counseled regarding importance of weight loss. -06/02/2022,chronic,unchanged,con't ibuprofen 800mg tid,was encouraged to maintain a regular cardiovascular exercise program,was counseled regarding importance of weight loss. Assessment & Plan (09/25/2021 9:19 PM CDT): -02/27/2020,08/29/2020,Chronic,unchanged,con't naproxen. -12/29/2020,chronic,con't ibuprofen 800mg tid. -08/31/2021,chronic,unchanged,con't ibuprofen 800mg tid,was encouraged to maintain a regular cardiovascular exercise program,was counseled regarding importance of weight loss. Assessment & Plan (01/04/2021 2:48 PM CDT): -02/27/2020,08/29/2020,Chronic,unchanged,con't naproxen. -12/29/2020,chronic,con't ibuprofen 800mg tid. Assessment & Plan (08/31/2020 5:58 PM TURNAROUND ENGINEER): -02/27/2020,08/29/2020,Chronic,unchanged,con't naproxen. Assessment & Plan (03/02/2020 9:32 PM CDT): -02/27/2020,Chronic,unchanged,con't naproxen. Assessment & Plan (09/02/2019 8:57 PM TURNAROUND ENGINEER): Chronic-unchanged,con't naproxen. Assessment & Plan (04/21/2019 10:30 AM CDT): Chronic-unchanged,con't naproxen. Assessment & Plan (02/04/2019 10:12 PM CDT): Chronic-unchanged,con't naproxen. Assessment & Plan (09/01/2018 9:57 PM TURNAROUND ENGINEER): Chronic-unchanged,con't naproxen. Assessment & Plan (04/27/2018 9:41 PM CDT): Chronic-con't naproxen. Assessment & Plan (09/10/2017 12:47 PM TURNAROUND ENGINEER): Chronic-con't naproxen. Resolved Problems Problem Noted Date Diagnosed Date Resolved Date Chest pain, unspecified type 03/06/2024 03/06/2024 Dysuria 11/24/2023 12/18/2023 Assessment & Plan (11/24/2023 10:03 AM CDT): Acute, started one week ago. Malodorous and burning during urination. UA: Moderate leukocytes. Start macrobid 100mg BID x7 days. Start pyridium as needed for dysuria. Acute cystitis without hematuria 11/24/2023 12/18/2023 Assessment & Plan (11/24/2023 10:03 AM CDT): Acute, started one week ago. Malodorous and burning during urination. UA: Moderate leukocytes. Start macrobid 100mg BID x7 days. Start pyridium as needed for dysuria Annual physical exam 06/03/2023 Assessment & Plan (06/28/2023 11:17 PM TURNAROUND ENGINEER): -06/03/2023,Exam completed. Acute bacterial sinusitis 04/18/2023 Assessment & Plan (05/02/2023 2:36 PM CDT): Resolved with doxcycycline and prednisone. Reports lingering cough responding to OTC cough medication. Assessment & Plan (04/18/2023 1:33 PM CDT): Acute, started about 5 days ago. Cough, nasal congestion, thick mucous, generalized body aches, sinus headache. Taking coricidin HBP without relief. Start doxycycline 100mg BID x 10 days. Start prednisone taper. COVID/FLU: Negative. Chronic diastolic congestive heart failure 06/24/2022 03/25/2023 Assessment & Plan (12/16/2022 8:58 PM CDT): -06/02/2022,chronic,compensated,con't lasix 40mg daily,metoprolol 100mg daily,imdur 60mg daily,low salt diet,fluid restriction,followed by cardiology. -11/30/2022,chronic,compensated,con't lasix 40mg daily,metoprolol 100mg daily,imdur 60mg daily,low salt diet,fluid restriction,followed by cardiology. Assessment & Plan (06/24/2022 12:52 AM TURNAROUND ENGINEER): -06/02/2022,chronic,compensated,con't lasix 40mg daily,metoprolol 100mg daily,imdur 60mg daily,low salt diet,fluid restriction,followed by cardiology. 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 Myalgia 09/21/2021 06/24/2022 Class 3 severe obesity due t o excess calories with serious comorbidity and body mass index (BMI) of 45.0 to 49.9 in adult 01/04/2021 Assessment & Plan (02/01/2021 1:37 AM CDT): -02/27/2020,08/29/2020,12/29/2020,chronic,worse,was counseled regarding importance of weight loss. Discussed the patient's BMI. The BMI is above average; BMI management plan is completed. Regular aerobic exercise program discussed. -01/28/2021,chronic,worse,was counseled regarding importance of weight loss.Discussed the patient's BMI. The BMI is above average; BMI management plan is completed.Regular aerobic exercise program discussed Assessment & Plan (01/04/2021 2:52 PM CDT): -02/27/2020,08/29/2020,12/29/2020,chronic,worse,was counseled regarding importance of weight loss. Discussed the patient's BMI. The BMI is above average; BMI management plan is completed. Regular aerobic exercise program discussed. Encounter for screening colonoscopy 09/16/2020 12/29/2020 Overview (09/16/2020): Added automatically from request for surgery [id number] Hidradenitis suppurativa of right axilla 02/07/2020 03/02/2020 Overview (02/07/2020): worsening stop bactrim, start ceftin referral to surgery edu given and reviewed Encounter for Medicare annual wellness exam 12/19/2018 11/30/2022 Assessment & Plan (06/24/2022 12:45 AM TURNAROUND ENGINEER): -06/02/2022,Exam done. Assessment & Plan (03/02/2020 9:24 PM CDT): -02/27/2020,exam done. Assessment & Plan (02/04/2019 10:13 PM CDT): -exam done,forms completed BMI 40.0-44.9, adult 05/11/2017 018 Obesity, morbid, BMI 40.0-49.9 05/04/2017 12/27/2017 Assessment & Plan (09/10/2017 12:47 PM TURNAROUND ENGINEER): Obesity is unchanged. Discussed the patient's BMI. The BMI is above average; BMI management plan is completed. Regular aerobic exercise program discussed. Assessment & Plan (05/04/2017 9:28 PM CDT): Obesity is unchanged. Discussed the patient's BMI. The BMI is above average; BMI management plan is completed. Regular aerobic exercise program discussed. Assessment & Plan (05/04/2017 9:19 PM CDT): Obesity is unchanged. Discussed the patient's BMI. The BMI is above average; BMI management plan is completed. Regular aerobic exercise program discussed. Morbid obesity due to excess calories 05/04/2017 12/27/2017 Assessment & Plan (09/10/2017 12:48 PM TURNAROUND ENGINEER): Obesity is unchanged. Discussed the patient's BMI. The BMI is above average; BMI management plan is completed. Regular aerobic exercise program discussed. Assessment & Plan (05/04/2017 9:28 PM CDT): Obesity is unchanged. Discussed the patient's BMI. The BMI is above average; BMI management plan is completed. Regular aerobic exercise program discussed. Assessment & Plan (05/04/2017 9:19 PM CDT): Obesity is unchanged. Discussed the patient's BMI. The BMI is above average; BMI management plan is completed. Regular aerobic exercise program discussed. Screening for prostate cancer 04/05/2017 06/02/2022 Dyslipidemia, goal LDL below 70 05/21/2016 03/25/2023 Overview (10/07/2016): Dyslipidemia, goal LDL below 130 Assessment & Plan (12/16/2022 8:57 PM CDT): -02/27/2020,08/29/2020,12/29/2020,chronic,Lipid abnormalities are improving with treatment.con't lipitor 80mg qd. Nutritional counseling was provided. and Pharmacotherapy as ordered. -08/31/2021,chronic,stable,con't lipitor 80mg daily,Ayush F Charter was advised to maintain a low fat, low cholesterol diet. -12/21/2021,chronic,controlled,con't lipitor 80mg daily,Ayush F Charter was advised to maintain a low fat, low cholesterol diet. -06/02/2022,chronic,controlled,con't lipitor 80mg daily,Ayush F Charter was advised to maintain a low fat, low cholesterol diet. -11/30/2022,chronic,controlled,con't lipitor 80mg daily,Ayush F Charter was advised to maintain a low fat, low cholesterol diet. Lab Results Component Value Date CHOL 138 06/14/2022 CHOL 133 01/11/2022 CHOL 135 09/03/2021 POCCHOL 146 08/14/2021 POCCHOL 175 08/22/2020 POCCHOL 162 04/07/2020 Lab Results Component Value Date HDL 33 (L) 06/14/2022 HDL 30 (L) 01/11/2022 HDL 37 (L) 09/03/2021 POCHDL 34 08/14/2021 POCHDL 30 08/22/2020 POCHDL 31 04/07/2020 Lab Results Component Value Date LDLCALC 76 06/14/2022 LDLCALC 79 01/11/2022 LDLCALC 75 09/03/2021 LDL 73 05/21/2016 LDL 85 01/28/2016 LDL 81 09/10/2015 POCLDL 74 08/14/2021 POCLDL 78 08/22/2020 POCLDL 93 04/07/2020 SCRLDL 96 11/06/2020 Lab Results Component Value Date TRIG 147 06/14/2022 TRIG 121 01/11/2022 TRIG 113 09/03/2021 POCTRIG 194 08/14/2021 POCTRIG 337 08/22/2020 POCTRIG 185 04/07/2020 Assessment & Plan (06/24/2022 12:30 AM TURNAROUND ENGINEER): -02/27/2020,08/29/2020,12/29/2020,chronic,Lipid abnormalities are improving with treatment.con't lipitor 80mg qd. Nutritional counseling was provided. and Pharmacotherapy as ordered. -08/31/2021,chronic,stable,con't lipitor 80mg daily,Ayush F Charter was advised to maintain a low fat, low cholesterol diet. -12/21/2021,chronic,controlled,con't lipitor 80mg daily,Ayush F Charter was advised to maintain a low fat, low cholesterol diet. -06/02/2022,chronic,controlled,con't lipitor 80mg daily,Ayush F Charter was advised to maintain a low fat, low cholesterol diet. Lab Results Component Value Date CHOL 138 06/14/2022 CHOL 133 01/11/2022 CHOL 135 09/03/2021 POCCHOL 146 08/14/2021 POCCHOL 175 08/22/2020 POCCHOL 162 04/07/2020 Lab Results Component Value Date HDL 33 (L) 06/14/2022 HDL 30 (L) 01/11/2022 HDL 37 (L) 09/03/2021 POCHDL 34 08/14/2021 POCHDL 30 08/22/2020 POCHDL 31 04/07/2020 Lab Results Component Value Date LDLCALC 76 06/14/2022 LDLCALC 79 01/11/2022 LDLCALC 75 09/03/2021 LDL 73 05/21/2016 LDL 85 01/28/2016 LDL 81 09/10/2015 POCLDL 74 08/14/2021 POCLDL 78 08/22/2020 POCLDL 93 04/07/2020 SCRLDL 96 11/06/2020 Lab Results Component Value Date TRIG 147 06/14/2022 TRIG 121 01/11/2022 TRIG 113 09/03/2021 POCTRIG 194 08/14/2021 POCTRIG 337 08/22/2020 POCTRIG 185 04/07/2020 Assessment & Plan (01/04/2022 8:22 PM CDT): -02/27/2020,08/29/2020,12/29/2020,chronic,Lipid abnormalities are improving with treatment.con't lipitor 80mg qd. Nutritional counseling was provided. and Pharmacotherapy as ordered. -08/31/2021,chronic,stable,con't lipitor 80mg daily,Ayush F Charter was advised to maintain a low fat, low cholesterol diet. -12/21/2021,chronic,controlled,con't lipitor 80mg daily,Ayush F Charter was advised to maintain a low fat, low cholesterol diet. Lab Results Component Value Date CHOL 135 09/03/2021 CHOL 136 09/02/2020 CHOL 170 02/27/2020 POCCHOL 146 08/14/2021 POCCHOL 175 08/22/2020 POCCHOL 162 04/07/2020 Lab Results Component Value Date HDL 37 (L) 09/03/2021 HDL 35 (L) 09/02/2020 HDL 35 (L) 02/27/2020 POCHDL 34 08/14/2021 POCHDL 30 08/22/2020 POCHDL 31 04/07/2020 Lab Results Component Value Date LDLCALC 75 09/03/2021 LDLCALC 58 09/02/2020 LDLCALC 94 02/27/2020 LDL 73 05/21/2016 LDL 85 01/28/2016 LDL 81 09/10/2015 POCLDL 74 08/14/2021 POCLDL 78 08/22/2020 POCLDL 93 04/07/2020 SCRLDL 96 11/06/2020 Lab Results Component Value Date TRIG 113 09/03/2021 TRIG 217 (H) 09/02/2020 TRIG 204 (H) 02/27/2020 POCTRIG 194 08/14/2021 POCTRIG 337 08/22/2020 POCTRIG 185 04/07/2020 Assessment & Plan (09/25/2021 9:12 PM CDT): -02/27/2020,08/29/2020,12/29/2020,chronic,Lipid abnormalities are improving with treatment.con't lipitor 80mg qd. Nutritional counseling was provided. and Pharmacotherapy as ordered. -08/31/2021,chronic,stable,con't lipitor 80mg daily,Ayush Anderson was advised to maintain a low fat, low cholesterol diet. Lab Results Component Value Date CHOL 135 09/03/2021 CHOL 136 09/02/2020 CHOL 170 02/27/2020 POCCHOL 146 08/14/2021 POCCHOL 175 08/22/2020 POCCHOL 162 04/07/2020 Lab Results Component Value Date HDL 37 (L) 09/03/2021 HDL 35 (L) 09/02/2020 HDL 35 (L) 02/27/2020 POCHDL 34 08/14/2021 POCHDL 30 08/22/2020 POCHDL 31 04/07/2020 Lab Results Component Value Date LDLCALC 75 09/03/2021 LDLCALC 58 09/02/2020 LDLCALC 94 02/27/2020 LDL 73 05/21/2016 LDL 85 01/28/2016 LDL 81 09/10/2015 POCLDL 74 08/14/2021 POCLDL 78 08/22/2020 POCLDL 93 04/07/2020 SCRLDL 96 11/06/2020 Lab Results Component Value Date TRIG 113 09/03/2021 TRIG 217 (H) 09/02/2020 TRIG 204 (H) 02/27/2020 POCTRIG 194 08/14/2021 POCTRIG 337 08/22/2020 POCTRIG 185 04/07/2020 Assessment & Plan (01/04/2021 2:39 PM CDT): -02/27/2020,08/29/2020,12/29/2020,chronic,Lipid abnormalities are improving with treatment.con't lipitor 80mg qd. Nutritional counseling was provided. and Pharmacotherapy as ordered. Lab Results Component Value Date CHOL 136 09/02/2020 CHOL 170 02/27/2020 CHOL 153 04/20/2019 POCCHOL 175 08/22/2020 POCCHOL 162 04/07/2020 Lab Results Component Value Date HDL 35 (L) 09/02/2020 HDL 35 (L) 02/27/2020 HDL 39 (L) 04/20/2019 POCHDL 30 08/22/2020 POCHDL 31 04/07/2020 Lab Results Component Value Date LDLCALC 58 09/02/2020 LDLCALC 94 02/27/2020 LDLCALC 89 04/20/2019 LDL 73 05/21/2016 LDL 85 01/28/2016 LDL 81 09/10/2015 POCLDL 78 08/22/2020 POCLDL 93 04/07/2020 SCRLDL 96 11/06/2020 Lab Results Component Value Date TRIG 217 (H) 09/02/2020 TRIG 204 (H) 02/27/2020 TRIG 125 04/20/2019 POCTRIG 337 08/22/2020 POCTRIG 185 04/07/2020 Assessment & Plan (08/31/2020 5:57 PM TURNAROUND ENGINEER): -02/27/2020,08/29/2020,chronic,Lipid abnormalities are improving with treatment.con't zocor 20mg qd. Nutritional counseling was provided. and Pharmacotherapy as ordered. Lab Results Component Value Date CHOL 170 02/27/2020 CHOL 153 04/20/2019 CHOL 151 12/28/2018 POCCHOL 175 08/22/2020 POCCHOL 162 04/07/2020 Lab Results Component Value Date HDL 35 (L) 02/27/2020 HDL 39 (L) 04/20/2019 HDL 33 (L) 12/28/2018 POCHDL 30 08/22/2020 POCHDL 31 04/07/2020 Lab Results Component Value Date LDLCALC 94 02/27/2020 LDLCALC 89 04/20/2019 LDLCALC 89 12/28/2018 LDL 73 05/21/2016 LDL 85 01/28/2016 LDL 81 09/10/2015 POCLDL 78 08/22/2020 POCLDL 93 04/07/2020 Lab Results Component Value Date TRIG 204 (H) 02/27/2020 TRIG 125 04/20/2019 TRIG 146 12/28/2018 POCTRIG 337 08/22/2020 POCTRIG 185 04/07/2020 Assessment & Plan (03/02/2020 9:28 PM CDT): -02/27/2020,chronic,Lipid abnormalities are improving with treatment.con't zocor 20mg qd. Nutritional counseling was provided. and Pharmacotherapy as ordered. Lab Results Component Value Date CHOL 170 02/27/2020 CHOL 153 04/20/2019 CHOL 151 12/28/2018 Lab Results Component Value Date HDL 35 (L) 02/27/2020 HDL 39 (L) 04/20/2019 HDL 33 (L) 12/28/2018 Lab Results Component Value Date LDLCALC 94 02/27/2020 LDLCALC 89 04/20/2019 LDLCALC 89 12/28/2018 LDL 73 05/21/2016 LDL 85 01/28/2016 LDL 81 09/10/2015 Lab Results Component Value Date TRIG 204 (H) 02/27/2020 TRIG 125 04/20/2019 TRIG 146 12/28/2018 Assessment & Plan (09/02/2019 8:57 PM TURNAROUND ENGINEER): -chronic,Lipid abnormalities are improving with treatment.con't zocor. Nutritional counseling was provided. and Pharmacotherapy as ordered. Lab Results Component Value Date CHOL 153 04/20/2019 CHOL 151 12/28/2018 CHOL 163 08/22/2018 Lab Results Component Value Date HDL 39 (L) 04/20/2019 HDL 33 (L) 12/28/2018 HDL 35 (L) 08/22/2018 Lab Results Component Value Date LDLCALC 89 04/20/2019 LDLCALC 89 12/28/2018 LDLCALC 90 08/22/2018 LDL 73 05/21/2016 LDL 85 01/28/2016 LDL 81 09/10/2015 Lab Results Component Value Date TRIG 125 04/20/2019 TRIG 146 12/28/2018 TRIG 192 (H) 08/22/2018 Assessment & Plan (04/21/2019 10:29 AM CDT): Lipid abnormalities are improving with treatment.con't zocor. Nutritional counseling was provided. and Pharmacotherapy as ordered. Assessment & Plan (02/04/2019 10:12 PM CDT): Lipid abnormalities are improving with treatment.con't zocor. Nutritional counseling was provided. and Pharmacotherapy as ordered. Assessment & Plan (09/01/2018 9:57 PM TURNAROUND ENGINEER): Lipid abnormalities are improving with treatment.con't zocor. Nutritional counseling was provided. and Pharmacotherapy as ordered. Assessment & Plan (04/27/2018 9:41 PM CDT): Lipid abnormalities are improving with treatment.con't zocor. Nutritional counseling was provided. and Pharmacotherapy as ordered. Assessment & Plan (01/07/2018 7:33 PM CDT): Lipid abnormalities are improving with treatment. con't zocor. Nutritional counseling was provided. and Pharmacotherapy as ordered. Assessment & Plan (09/10/2017 12:48 PM TURNAROUND ENGINEER): Lipid abnormalities are improving with treatment. con't zocor. Nutritional counseling was provided. and Pharmacotherapy as ordered. Assessment & Plan (05/04/2017 9:28 PM CDT): Lipid abnormalities are improving with treatment. Nutritional counseling was provided. and Pharmacotherapy as ordered. BMI 39.0-39.9,adult 05/21/2016 09/02/19 20 Overview (10/07/2016): BMI 39.0-39.9,adult Assessment & Plan (04/21/2019 10:31 AM CDT): Obesity-improving,was counseled regarding importance of weight loss. Discussed the patient's BMI. The BMI is above average; BMI management plan is completed. Regular aerobic exercise program discussed. Body mass index 40+ - severely obese 09/26/2015 04/05/2017 Overview (10/07/2016): BMI 40.0-44.9, adult Old myocardial infarction 08/20/2014 Overview (10/07/2016): Old myocardial infarction Assessment & Plan (09/25/2021 9:12 PM CDT): -02/27/2020,08/29/2020,12/29/2020,chronic,Coronary artery disease is improving with treatment. Continue current treatment regimen. Dietary sodium restriction. Weight loss. Regular aerobic exercise. -08/31/2021,chronic,con't lipitor,imdur,metoprolol,Ayush F Sumit was advised to maintain a low fat, low cholesterol diet. Assessment & Plan (01/04/2021 2:40 PM CDT): -02/27/2020,08/29/2020,12/29/2020,chronic,Coronary artery disease is improving with treatment. Continue current treatment regimen. Dietary sodium restriction. Weight loss. Regular aerobic exercise. Assessment & Plan (08/31/2020 5:58 PM TURNAROUND ENGINEER): -02/27/2020,08/29/2020,chronic,Coronary artery disease is improving with treatment. Continue current treatment regimen. Dietary sodium restriction. Weight loss. Regular aerobic exercise. Assessment & Plan (03/02/2020 9:31 PM CDT): -02/27/2020,chronic,Coronary artery disease is improving with treatment. Continue current treatment regimen. Dietary sodium restriction. Weight loss. Regular aerobic exercise. Assessment & Plan (09/02/2019 8:57 PM TURNAROUND ENGINEER): Coronary artery disease is improving with treatment. Continue current treatment regimen. Dietary sodium restriction. Weight loss. Regular aerobic exercise. Assessment & Plan (04/21/2019 10:29 AM CDT): Coronary artery disease is improving with treatment. Continue current treatment regimen. Dietary sodium restriction. Weight loss. Regular aerobic exercise. Assessment & Plan (02/04/2019 10:12 PM CDT): Coronary artery disease is improving with treatment. Continue current treatment regimen. Dietary sodium restriction. Weight loss. Regular aerobic exercise. Assessment & Plan (09/01/2018 9:53 PM TURNAROUND ENGINEER): Coronary artery disease is improving with treatment. Continue current treatment regimen. Dietary sodium restriction. Weight loss. Regular aerobic exercise. Hypertension 11/17/2013 04/05/2017 Overview (10/08/2016): High blood pressure Heart valve disease 11/17/2013 09/11/19 Overview (10/09/2016): Heart valve problem Knee pain 11/17/2013 09/10/2017 Overview (10/08/2016): Knee pain Pure hypercholesterolemia 06/18/2013 Overview (10/07/2016): PURE HYPERCHOLESTEROLEM Atherosclerosis of coronary artery bypass graft 06/18/2013 09/10/2017 Overview (10/07/2016): COR ATH BYPASS GRAFT NOS Adiposity 01/23/2013 04/05/2017 Overview (10/08/2016): OBESITY NOS Chronic ischemic heart disease 05/05/2012 09/10/2017 Overview (10/07/2016): CHR ISCHEMIC HRT DIS NOS Assessment & Plan (05/04/2017 9:25 PM CDT): Coronary artery disease is improving with treatment. Continue current treatment regimen. Dietary sodium restriction. Weight loss. Regular aerobic exercise. Immunizations Immunization Administration Dates Next Due Influenza, Quadrivalent, Hig h Dose, Preservative Free, Intrr 05/02/2023,05/19/2022,04/21/2021 Influenza, Split 07/07/2012 Influenza, Trivalent, High D ose, Split, Preservative Free, Intramuscular 03/22/2024,03/14/2020,04/20/2019,04/27,05/21/2016,03/04/2015 Influenza, Trivalent, IM (MDV) 04/03/2015 Influenza, Unspecified 05/02/2023,2021,04/21/2021,03/14,04/20/2019,04/27/2018,05/21/2016 ,04/03/2015,03/04/2015,07/07/2012 [place] (J&J) SARS-CoV-2 Vaccination 06/17/2021, 09/05/2020 Pneumococcal Conjugate Pcv20 12/29/2023(Deferred : Patient Refused) Pneumococcal Polysaccharide PPV23 04/20/2019,08/2011 Tdap 04/20/2019 Social History Tobacco Use Types Packs/Day Years Used Date Smoking Tobacco: Never Smokeless Tobacco: Never Tobacco Cessation:Counseling Given: Not Answered Alcohol Use Standard Drinks/Week Comments Yes 3 (1 standard drink = 0.6 oz pur e alcohol) 3 beers [facility] Utilities Answer Date Recorded In the past 12 months has [employer], gas, oil, or water [employer] threatened to shut off services in your home? No 03/14/2024 Social Connection and Isolat ion Panel [NHANES] Answer Date Recorded In a typical week, how many times do you talk on the phone with family, friends, or neighbors? More than three times a week 03/14/2024 How often do you get togethe r with friends or relatives? More than three times a week 03/14/2024 How often do you attend chur ch or lutheran services? Never 03/14/2024 Do you belong to any clubs o r organizations such as orthodox groups, unions, fraternal or athletic groups, or school groups? No 03/14/2024 How often do you attend meet ings of the clubs or organizations you belong to? Never 03/14/2024 Are you , , di vorced, , never , or living with a partner? 03/14/2024 AUDIT-C Answer Date Recorded Q1: How often do you have a drink containing alc ohol? Monthly or less 06/02/2022 Q2: How many drinks containi ng alcohol do you have on a typical day when you are drinking? 1 or 2 06/02/2022 Q3: How often do you have si x or more drinks on one occasion? Never 06/02/2022 Overall Financial Resource Strain (CARDIA) Answe r Date Recorded How hard is it for you to pa y for the very basics like food, housing, medical care, and heating? Not very hard 03/14/2024 PHQ-2 Answer Date Recorded PHQ-2 Total Score (If total score is 3 or more points, staff should administer the PHQ-9) 3 03/22/2024 Hunger Vital Sign Answer Date Recorded Within the past 12 months, y ou worried that your food would run out before you got the money to buy more. Never true 03/14/20 24 Within the past 12 months, t he food you bought just didn't last and you didn't have money to get more. Never true 03/14/2024 PRAPARE - Transportation Answer Date Re corded In the past 12 months, has l ack of transportation kept you from medical appointments or from getting medications? No 03/04 In the past 12 months, has l ack of transportation kept you from meetings, work, or from getting things needed for daily living? No 03/14/2024 PHQ-9 Answer Date Recorded PHQ-9 Total Score 12 03/22/2024 Housing Stability Vital Sign Answer Juan e Recorded In the last 12 months, was t here a time when you were not able to pay the mortgage or rent on time? No 03/14/2024 In the past 12 months, how m any times have you moved where you were living? 0 03/14/2024 At any time in the past 12 m [facility], were you homeless or living in a longterm (including now)? No 03/14/2024 Personal Safety Answer Date Recorded Have you ever been in or are you currently in a harmful physical or emotional relationship or is someone making you feel afraid or unsafe? Denies 03/09/2024 Sex and Gender Information Value Date Recorded Sex Assigned at Not on file Legal Sex Male 9:03 AM TURNAROUND ENGINEER Gender Identity Not on file Sexual Orientation Not on file Last Filed Vital Signs Vital Sign Reading Time Taken Comments Blood Pressure 112/68 11/20/2024 11:16 AM CDT Pulse 87 11/20/2024 11:16 AM CDT Temperature 36.1 C (96.9 F) 03/22/2024 1:51 PM CDT Respiratory Rate 18 03/22/2024 1:51 PM CDT Oxygen Saturation 97% 11/20/2024 11:16 AM CDT Inhaled Oxygen Concentration - - Weight 116.6 kg (257 lb) 11/20/2024 11:16 AM CDT Height 167.6 cm (5' 6) 11/20/2024 11:16 AM CDT Body Mass Index 41.48 11/20/2024 11:16 AM CDT Plan of Treatment Not on file Goals Goal Patient Goal Type Associated Problems Recent Progress Patient-Stated? Author JORDI General Goal - Patient is knowledgeable about condition when worsening and how to respond ACO Care Management Marni Romo RN Note: Problem: Knowledge deficit related to signs and symptoms of worsening condition Interventions: - Assess patient's level of understanding related to their condition(s), specific medications and self-management of their chronic conditions. - Send educational materials to patient related to their chronic condition, including signs and symptoms, self-management actions, and serious symptoms that require urgent medical intervention. - Assist patient/provider in developing an action plan for symptom management. - Review with patient weekly: s/s worsening condition, self-management actions to take, when to call CM or provider. Medical Devices Implanted Type Area Director Of District Office Device Identifier Shelf Expiration Date Model / Serial / Lot [id number] Device Closure Angio-Seal Vip Bondek-Plus Polyglyd L70 Cm Od6 Fr Odsec.035 In Vascular - [id number] Implanted:Qty: 1 on 05/08/2020 by Teto Oedll MD at [facility] Right: Femoral [employer] Michelle [id number] / / Medtronic Card Vasc Surgery 3.5 X 15mm Jigar [place] [employer] Coronary Stent [id number] - [id number] Implanted:Qty: 1 on 03/10/2024 by Roberta Alva MD at [facility] Alaris Royaltytronic Card Vasc Surgery 12/11/2026 [id number] / / [id number] [employer] WangYou Device Vascular Closure Femoral Artery Bioabsorbable Dual Method Vascade 6-7fr Collagen [id number] - [id number] Implanted:Qty: 1 on 03/10/2024 by Roberta Alva MD at [facility] [employer] 08/30/2025 [id number] / / [id number] Procedures Procedure Name Priority Date/Time Associated Diagnosis Comments TRANSTHORACIC ECHO (TTE) COMPLETE W DOPPLER/CF W CONTRAST Routine 11/22/2024 8:43 AM CDT Chronic heart failure with preserved ejection fraction (HCC) ELECTROCARDIOGRAM REPORT Routine 11/20/2024 Chronic heart failure with preserved ejection fraction (HCC) EGFR Routine 03/13/2024 5:17 AM CDT LIPID PANEL Timed 03/09/2024 6:02 PM CDT HEMOGLOBIN A1C Routine 03/06/2024 7:34 PM CDT ALBUMIN CREATININE RATIO, URINE Routine 12/20/2023 10:36 AM CDT Persistent atrial fibrillation (HCC) 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) Hypertension associated with diabetes (HCC) History of coronary artery bypass surgery Gastroesophageal reflux disease without esophagitis Coronary artery disease involving [place] coronary artery of [place] heart without angina pectoris Benign prostatic hyperplasia with urinary frequency DIABETIC EYE EXAM Routine 09/05/2023 COLONOSCOPY 09/26/2020 12:21 PM CDT HEPATITIS PANEL, ACUTE Routine 9 11:18 AM CDT Encounter for Medicare annual wellness exam from Last 3 Months or Most Recently Relevant to Health Maintenance Results * TRANSTHORACIC ECHO (TTE) COMPLETE W DOPPLER/CF W CONTRAST (11/22/2024 8:43 AM CDT) Estimated EF 65-70 % CONS SCIMAGE EF Mod BP 75 % CONS SCIMAGE Anatomical Region Laterality Modality Ultrasound 11/22/2024 8:21 AM CDT Narrative 11/22/2024 1:03 PM CDT [facility] [address], [address], [place] [address] P:[phone] P:[phone] Echocardiographic Report Patient Name: AYUSH ANDERSON F : 1945 Study Date: 11/22/2024 8:21:03 AM Gender: M Tech: Location: [facility] Ref Provider: JAYA TARIQ Height(Cm): 168 BSA: 2.33 Weight(Kg): 116.6 Heart Rate: 66 BP: 112 / 68 Quality: Good Order Provider: JAYA TARIQ PROCEDURES: Echocardiographic Report: Transthoracic echocardiogram with complete 2D, M-Mode, color Doppler examination and Definity contrast. INDICATIONS: Chronic Heart Failure with Preserved Ejection Fraction. MEASUREMENTS: 2D/MM Value Range Doppler Value Range EF Mod BP 75 % [ 52 - 72 ] AV Mean PG 2 mmHg Estimated EF 65-70 % AV Peak Terence 1.00 m/s [ 1.00 - 1.70 ] LVIDd 2D 4.67 cm [ 4.20 - 5.80 ] AV Peak PG 4 mmHg LVIDd MM 4.61 cm [ 4.20 - 5.80 ] AV VTI 20.36 cm LVIDs 2D 3.38 cm [ 2.50 - 4.00 ] LVOT Peak Terence 0.76 m/s [ 0.70 - 1.10 ] LVIDs MM 3.47 cm [ 2.50 - 4.00 ] LVOT VTI 16.65 cm LVPWd 2D 1.09 cm [ 0.60 - 1.00 ] MV E Peak Terence 1.02 m/s [ 0.60 - 1.30 ] LVPWd MM 0.91 cm [ 0.60 - 1.00 ] MV Decel Time 171 msec [ 104 - 258 ] IVSd 2D 0.90 cm [ 0.60 - 1.00 ] PV Peak Terence 0.74 m/s [ 0.40 - 0.80 ] IVSd MM 0.78 cm [ 0.60 - 1.00 ] TR Peak Terence 2.39 m/s [ 1.00 - 2.80 ] LA Dimension MM 3.99 cm [ 3.00 - 4.00 ] TR Peak PG 23 mmHg AoR Diam MM 4.57 cm [ 3.10 - 3.70 ] RVSP 31.00 mmHg [ 10.00 - 36.00 ] LA Volume Index 53 cc/m2 [ 16 - 34 ] Lateral E` 0.06 m/s [ 0.10 - 0.15 ] E/E` 17 2D/MM Value Range Doppler Value Range - FINDINGS: Interpretation Site: Exam was interpreted at [facility]. Left Ventricle: Normal left ventricular systolic function. No focal wall motion abnormalities. Definity contrast agent used to visually enhance endocardial wall motion and contractility. Lot Number: [id number]. Normal left ventricular wall thickness. Left ventricle cavity is upper limits of normal in size. Ejection fraction is measured at 75 %. Ejection Fraction is visually estimated to be 65-70 %. Right Ventricle: Normal right ventricular size. Normal right ventricular systolic function. Left Atrium: There is moderate enlargement of left atrium. Right Atrium: There is mild enlargement of right atrium. Atrial Septum: Normal atrial septum. Mitral Valve: Normal appearance of the mitral valve. Mild mitral valve regurgitation. There is no hemodynamically significant mitral stenosis by Doppler. Aortic Valve: No evidence of hemodynamically significant aortic stenosis by Doppler. Aortic cusps appear mildly sclerotic. Trileaflet aortic valve. Mild aortic valve regurgitation. Tricuspid Valve: Normal appearance of the tricuspid valve. Normal right ventricular systolic pressure. Estimated peak RVSP is 31 mmHg. Mild tricuspid regurgitation. Pulmonic Valve: Normal appearance of the pulmonic valve. No pulmonic stenosis. Mild pulmonic regurgitation. Pericardium: Normal pericardium with no significant pericardial effusion. Aorta: Sinus of Valsalva is moderately dilated. Sinus of Valsalva 4.6 cm. Aortic root is moderately dilated. IVC: Normal size and normal respiratory collapse consistent with normal right atrial pressure (<5 mmHg). CONCLUSIONS: Normal left ventricular systolic function. No focal wall motion abnormalities. Definity contrast agent used to visually enhance endocardial wall motion and contractility. Lot Number: [id number]. Normal left ventricular wall thickness. Left ventricle cavity is upper limits of normal in size. Ejection fraction is measured at 75 %. Ejection Fraction is visually estimated to be 65-70 %. There is moderate enlargement of left atrium. There is mild enlargement of right atrium. Mild mitral valve regurgitation. Mild aortic valve regurgitation. Mild tricuspid regurgitation. Mild pulmonic regurgitation. Sinus of Valsalva is moderately dilated. Sinus of Valsalva 4.6 cm. Aortic root is moderately dilated. Normal sinus rhythm. Electronically Signed By: Anderson Ruiz MD 11/22/2024 1:03:31 PM CDT Procedure Note Anderson Ruiz MD - 11/22/2024 [facility] Cardiology [address], [address], [place] [address] P:[phone] P:[phone] Echocardiographic Report Patient Name: AYUSH ANDERSON F : 1945 Study Date: 11/22/2024 8:21:03 AM Gender: M Tech: Location: EDW Ref Provider: JAYA TARIQ Height(Cm): 168 BSA: 2.33 Weight(Kg): 116.6 Heart Rate: 66 BP: 112 / 68 Quality: Good Order Provider: JAYA TARIQ PROCEDURES: Echocardiographic Report: Transthoracic echocardiogram with complete 2D, M-Mode, color Dopplerexamination and Definity contrast. INDICATIONS: Chronic Heart Failure with Preserved Ejection Fraction. MEASUREMENTS: 2D/MM Value Range Doppler ValueRange EF Mod BP 75 % [ 52 - 72 ] AV Mean PG 2mmHg Estimated EF 65-70 % AV Peak Terence 1.00m/s [ 1.00 - 1.70 ] LVIDd 2D 4.67 cm [ 4.20 - 5.80 ] AV Peak PG 4mmHg LVIDd MM 4.61 cm [ 4.20 - 5.80 ] AV VTI 20.36cm LVIDs 2D 3.38 cm [ 2.50 - 4.00 ] LVOT Peak Terence 0.76m/s [ 0.70 - 1.10 ] LVIDs MM 3.47 cm [ 2.50 - 4.00 ] LVOT VTI 16.65cm LVPWd 2D 1.09 cm [ 0.60 - 1.00 ] MV E Peak Terence 1.02m/s [ 0.60 - 1.30 ] LVPWd MM 0.91 cm [ 0.60 - 1.00 ] MV Decel Time 171msec [ 104 - 258 ] IVSd 2D 0.90 cm [ 0.60 - 1.00 ] PV Peak Terence 0.74m/s [ 0.40 - 0.80 ] IVSd MM 0.78 cm [ 0.60 - 1.00 ] TR Peak Terence 2.39m/s [ 1.00 - 2.80 ] LA Dimension MM 3.99 cm [ 3.00 - 4.00 ] TR Peak PG 23mmHg AoR Diam MM 4.57 cm [ 3.10 - 3.70 ] RVSP 31.00mmHg [ 10.00 - 36.00 ] LA Volume Index 53 cc/m2 [ 16 - 34 ] Lateral E` 0.06m/s [ 0.10 - 0.15 ] E/E` 17 2D/MM Value Range Doppler ValueRange - FINDINGS: Interpretation Site: Exam was interpreted at [facility]. Left Ventricle: Normal left ventricular systolic function. No focal wall motionabnormalities. Definity contrast agent used to visually enhance endocardial wall motion andcontractility. Lot Number: [id number]. Normal left ventricular wall thickness. Left ventriclecavity is upper limits of normal in size. Ejection fraction is measured at 75 %. EjectionFraction is visually estimated to be 65-70 %. Right Ventricle: Normal right ventricular size. Normal right ventricular systolicfunction. Left Atrium: There is moderate enlargement of left atrium. Right Atrium: There is mild enlargement of right atrium. Atrial Septum: Normal atrial septum. Mitral Valve: Normal appearance of the mitral valve. Mild mitral valve regurgitation.There is no hemodynamically significant mitral stenosis by Doppler. Aortic Valve: No evidence of hemodynamically significant aortic stenosis by Doppler.Aortic cusps appear mildly sclerotic. Trileaflet aortic valve. Mild aortic valveregurgitation. Tricuspid Valve: Normal appearance of the tricuspid valve. Normal right ventricularsystolic pressure. Estimated peak RVSP is 31 mmHg. Mild tricuspid regurgitation. Pulmonic Valve: Normal appearance of the pulmonic valve. No pulmonic stenosis. Mildpulmonic regurgitation. Pericardium: Normal pericardium with no significant pericardial effusion. Aorta: Sinus of Valsalva is moderately dilated. Sinus of Valsalva 4.6 cm. Aorticroot is moderately dilated. IVC: Normal size and normal respiratory collapse consistent with normal rightatrial pressure (<5 mmHg). CONCLUSIONS: Normal left ventricular systolic function. No focal wall motionabnormalities. Definity contrast agent used to visually enhance endocardial wall motion andcontractility. Lot Number: [id number]. Normal left ventricular wall thickness. Left ventriclecavity is upper limits of normal in size. Ejection fraction is measured at 75 %. EjectionFraction is visually estimated to be 65-70 %. There is moderate enlargement of left atrium. There is mild enlargement of right atrium. Mild mitral valve regurgitation. Mild aortic valve regurgitation. Mild tricuspid regurgitation. Mild pulmonic regurgitation. Sinus of Valsalva is moderately dilated. Sinus of Valsalva 4.6 cm. Aorticroot is moderately dilated. Normal sinus rhythm. Electronically Signed By: Anderson Ruiz MD 11/22/2024 1:03:31 PM CDT Jaya Tariq MD CV ECHO PROCEDURES Final Result * Electrocardiogram Report (11/20/2024) 11/20/2024 Jaya Tariq MD ECG ORDERABLES Final Result * eGFR (03/13/2024 5:17 AM CDT) eGFR 89 >=60 mL/min/1. 73 m2 Comment: Interpretive Data Reference Interval Normal >/= 90 mL/min/1.73m2 Mildly decreased* 60 - 89 mL/min/1.73m2 Mildly to moderately decreased 45 - 59 mL/min/1.73m2 Moderately to severely decreased 30 - 44 mL/min/1.73m2 Severely decreased 15 - 29 mL/min/1.73m2 Kidney Failure < 15 mL/min/1.73m2 *Relative to young adult level Estimated glomerular filtration rate is determined by the 2020 CKD-EPI equation recommended by the National Kidney Foundation (A Unifying Approach to GFR Estimation: Recommendations of the NKF-ASK Task Force on Reassessing the Inclusion of Race in Diagnosing Kidney Disease, JASN 2020). The CKD-EPI equation should not be used for patients with unstable renal function and has not been validated in children and those over 70. Current interpretive data was last reviewed 2021. Blood 03/13/2024 5:17 AM CDT 03/13/2024 5:23 AM CDT us Roberta Alva MD LAB BLOOD ORDERABLES Final Result [facility] [address] Department [place] [address] * (ABNORMAL) Lipid panel (03/09/2024 6:02 PM CDT) Cholesterol 118 30 - 199 mg/dL Comment: Interpretive Data Ages < or = 19 years Acceptable: <170 mg/dL Borderline high: 170-199 mg/dL High: >or= 200 mg/dL Ages > or = 20 years Desirable: <200 mg/dL Borderline high: 200-239 mg/dL High: >or= 240 mg/dL Literature References: 1. Expert Panel on Integrated Guidelines for Cardiovascular Health and Risk Reduction in Children and Adolescents. Pediatrics 2011;128:S213 2. NCEP Expert Panel. Circulation 2004;110:227 Current Interpretive Data was last revised on 2018. Triglycerides 150(H) <=149 mg/dL [facility] Comment: Interpretive Data Ages < or = 9 years Acceptable: <75 mg/dL Borderline high: 75-99 mg/dL High: >or= 100 mg/dL Ages 10 to 20 years Acceptable: <90 mg/dL Borderline high: 90-129 mg/dL High: >or= 130 mg/dL Ages > or = 20 years Desirable: <150 mg/dL Borderline high: 150-199 mg/dL High: 200-499 mg/dL Very high: >or= 499 mg/dL Literature References: 1. Expert Panel on Integrated Guidelines for Cardiovascular Health and Risk Reduction in Children and Adolescents. Pediatrics 2011;128:S213 2. NCEP Expert Panel. Circulation 2004;110:227 Current Interpretive Data was last revised on 2018. HDL 34(L) >=40 mg/dL [facility] Comment: Interpretive Data Ages < or = 19 years Acceptable: >45 mg/dL Borderline low: 40-45 mg/dL Low: <40 mg/dL Ages > or = 20 years Desirable: >or= 60 mg/dL Low: <40 mg/dL Literature References: 1. Expert Panel on Integrated Guidelines for Cardiovascular Health and Risk Reduction in Children and Adolescents. Pediatrics 2011;128:S213 2. NCEP Expert Panel. Circulation 2004;110:227 Current Interpretive Data was last revised on 2018. LDL, calculated 58 <=129 mg/dL [facility] Comment: Interpretive Data Ages < or = 19 years Acceptable: <110 mg/dL Borderline high: 110-129 mg/dL High: >or= 130 mg/dL Ages > or = 20 years Optimal: <100 mg/dL Near optimal: 100-129 mg/dL Borderline high: 130-159 mg/dL High: >160 mg/dL Calculated using the Feliz LDL-C estimating equation. This equation was implemented on 2024. Prior to this date LDL-C was estimated using the Friedewald equation. Literature References: 1. Expert Panel on Integrated Guidelines for Cardiovascular Health and Risk Reduction in Children and Adolescents. Pediatrics 2011;128:S213 2. NCEP Expert Panel. Circulation 2004;110:227 3. Feliz Mistry al. NDAJA Cardiol. 2019November 01;5(5):540-548. doi: 10.1001/jamacardio.2020.0013 Current Interpretive Data was last revised on 2024. Non-HDL Cholesterol 84 mg/dL [facility] Comment: Interpretive Data Ages < or = 19 years Acceptable: <120 mg/dL Borderline high: 120-144 mg/dL High: >145 mg/dL Ages > or = 20 years When triglycerides are >200 mg/dL, Non-HDL cholesterol is a secondary target of therapy with treatment goals that are 30 mg/dL greater than the LDL cholesterol target. Literature References: 1. Expert Panel on Integrated Guidelines for Cardiovascular Health and Risk Reduction in Children and Adolescents. Pediatrics 2011;128:S213 2. NCEP Expert Panel. Circulation 2004;110:227 Current Interpretive Data was last revised on 2018. Chol/HDL ratio 3 [facility] Blood 03/09/2024 6:02 PM CDT 03/09/2024 6:02 PM CDT Narrative E[facility] - 03/09/2024 6:51 PM CDT This lipid panel was automatically ordered due to a significant change in Troponin. The dietary status of the patient at the collection time should be correlated with the lipid results. Opal COSTA LAB BLOOD ORDERABLES Final Res ult Performing Organization Address [facility] Co de Phone Number [facility] [address] [place] [address] * (ABNORMAL) Hemoglobin A1c (03/06/2024 7:34 PM CDT) Pathologist [facility] Hgb A1C 5.9(H) 4.0 - 5.6 % Estimated Average Glucose 123 mg/dL [facility] Comment: The ADA recommends reporting an estimated Average Glucose (eAG) with all Hemoglobin A1c results using the equation derived from a study of 507 normal and diabetic adults. Minority populations were underrepresented and children were not included. (Diabetes Care 31:3089-8964, 2008). The eAG is not equivalent to a fasting glucose. Blood 03/06/2024 7:34 PM CDT 03/06/2024 7:53 PM CDT Jenna Chase DO LAB BLOOD ORDERABLE S Final Result Performing Organization Address [facility] Co de Phone Number [facility] [address] [place] [address] * Albumin Creatinine Ratio, Urine (12/20/2023 10:36 AM CDT) Albumin Ur <12.0 mg/L Comment: Interpretive Data No reference range established. Current interpretive data was last revised 2018. Creatinine Ur 174.5 mg/dL [facility] Comment: Interpretive Data No reference range established. Current interpretive data was last revised 2018. Albumin Creatinine Ratio, Ur <7 1 - 29 mg/g [facility] Urine 12/20/2023 10:3 6 AM CDT 12/20/2023 11:07 AM CDT Jenna BarkerKarenJavi DO LAB URINE ORDERABLE S Final Result [facility] [address] Department [place] [address] * Diabetic Eye Exam (09/05/2023) us Historical Provider HEALTH MAINTENANCE Final Result * COLONOSCOPY (09/26/2020 12:21 PM CDT) Anatomical Region Laterality Modality Other Narrative Procedure Note Aristides Solomon MD - 09/26/2020 12:21 PM CDT [facility] Patient Name: Ayush Anderson Procedure Date: 09/26/2020 12:21 PM Date of : 1945 Admit Type: Outpatient Age: 75 Gender: Male Note Status: Finalized Attending MD: Aristides Solomon M.D. Procedure Date: 09/26/2020 Procedure: Colonoscopy Indications: Screening for colorectal malignant neoplasm, Thisis the patient's first colonoscopy Providers: Aristides Solomon M.D., Srinivasa Abdalla M.D. (Anesthesia Staff), Tonya Andrew RN Referring MD: Jenna Chase D.O. Medicines: Monitored Anesthesia Care Complications: No immediate complications. Estimated Blood Loss: Estimated blood loss: none. Procedure: Pre-Anesthesia Assessment: - Airway Examination: normal oropharyngeal airwayand neck mobility. - Respiratory Examination: clear to auscultation. - ASA Grade Assessment: III - A patient with severe systemic disease. - After reviewing the risks and benefits, thepatient was deemed in satisfactory condition to undergo the procedure. - The risks and benefits of the procedure and the sedation options and risks were discussed with the patient. All questions were answered and informed consent was obtained. After I obtained informed consent, the scope was passed under direct vision. Throughout theprocedure, the patient's blood pressure, pulse, and oxygen saturations were monitored continuously. The scopewas passed under direct vision. The Colonoscope was introduced through the anus and advanced to the the cecum, identified by the appendiceal orifice, ileocecal valve and palpation. The colonoscopy was performed with ease. The patient tolerated the procedure well. The quality of the bowelpreparation was evaluated using the BBPS ([place] BowelPreparation Scale) with scores of: Right Colon = 3, Transverse Colon = 3 and Left Colon = 3 (entire mucosa seenwell with no residual staining, small fragments of stoolor opaque liquid). The total BBPS score equals 9. The quality of the bowel preparation was good. Thebowel preparation used was SUPREP via split dose instruction. Bowel prep was administered using asplit dose. Findings: The perianal and digital rectal examinations were normal. Two sessile polyps were found in the transverse colon. The polypswere 4 to 5 mm in size. These polyps were removed with a jumbo cold forceps. Resection and retrieval were complete. Estimated blood loss: none. A 10 mm polyp was found in the sigmoid colon. The polyp was semi-pedunculated. The polyp was removed with a hot snare. Resectionand retrieval were complete. To close a defect after polypectomy, one hemostatic clip was successfully placed. There was no bleedingduring, or at the end, of the procedure. Estimated blood loss: none. Internal hemorrhoids were found during retroflexion. The hemorrhoids were mild. Impression: - Two 4 to 5 mm polyps in the transverse colon, removed with a jumbo cold forceps. Resected and retrieved. - One 10 mm polyp in the sigmoid colon, removedwith a hot snare. Resected and retrieved. Clip wasplaced. - Internal hemorrhoids. Recommendation: - Repeat colonoscopy in 3 years for surveillance. - Discharge patient to home (ambulatory). - Await pathology results. - No ibuprofen, naproxen, or other non-steroidal anti-inflammatory drugs for 2 weeks after polyp removal. Procedure Code(s): --- Professional --- 18763, Colonoscopy, flexible; with removal of tumor(s), polyp(s), or other lesion(s) by snare technique 31805, 59, Colonoscopy, flexible; with biopsy,single or multiple Diagnosis Code(s): --- Professional --- K63.5, Polyp of colon Z12.11, Encounter for screening for malignantneoplasm of colon K64.8, Other hemorrhoids CPT copyright 2019 [employer]. All rights reserved. The codes documented in this report are preliminary and upon learning operations specialist reviewmay be revised to meet current compliance requirements. Electronically signed by Aristides Solomon MD Aristides Solomon M.D. 09/26/2020 12:58:33 PM Number of Addenda: 0 Note Initiated On: 09/26/2020 12:21 PM us Aristides Solomon MD ENDOSCOPY PROCEDURES Final Resul t * Hepatitis panel, acute (12/28/2018 11:18 AM CDT) Hep A IgM Negative Negative [facility] Hep B core IgM Negative Negative [facility] Hep C Ab Negative Negative [facility] HepBsAg Nonreactive Nonreactive [facility] Blood specimen (specimen) 12/28/2018 11:18 AM CDT 12/28/2018 12:59 PM CDT Jenna Chase DO LAB MICROBIOLOGY - GENERAL ORDERABLES Final Result [facility] [address] Department [place] [address] from Last 3 Months or Most Recently Relevant to Health Maintenance Insurance MEDICARE COMMERCIAL GENERIC [facility] MEDICARE ADVANTAGE [place] [id number] [facility] MEDICARE ADVANTAGE [place] [id number] Advance Directives For more information, please contact: [phone] Documents on File Type Date Recorded 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 DIRECTIVE 11/25/2023 [employer]-FINANCIAL/MEDICAL * Full Code (Latest Code Status on File) Date Activated Date Inactivated Comments 03/09/2024 8:57 PM 03/13/2024 2:30 PM * Full Code Date Activated Date Inactivated Comments 03/09/2024 6:51 PM 03/09/2024 8:57 PM * Full Code Date Activated Date Inactivated Comments 03/06/2024 4:55 PM 03/08/2024 6:35 PM Healthcare Agents on File Name Relationship Healthcare Agent Relationshi p Communication Dory Anderson Spouse Health Care Agent Anderson Anderson Son First Altern ate Health Care Agent Care Teams Joint Maker 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
--- OUTSIDE RECORDS SUMMARY | 2024-12-07 10:29 | XMS_ITS | Encounter Summary ---
Author Organization [facility] Healthcare Address [address] [place] [address] Care Team Providers Care Girl Friday Name Role Phone Jenna Chase DO Primary Care Provi jass Aristides Solomon MD Unavailable Encounter Details Date Type Department Care Team (Latest Contact Info) Description 11/22/2024 Results Follow-Up [facility] Cardiology [address] [place] [address] Kathy Magdaleno RN Transthoracic Echo (TTE) Complete W Doppler/CF Social History Tobacco Use Types Packs/Day Years Used Date Smoking Tobacco: Never Smokeless Tobacco: Never Alcohol Use Standard Drinks/Week Comments Yes 3 (1 standard drink = 0.6 oz pur e alcohol) [address] [facility] Utilities Answer Date Recorded In the past 12 months has [employer], gas, oil, or water company threatened to shut off services in your [...] often do you attend chur ch or scientology services? Never 03/14/2024 Do you belong to any clubs o r organizations such as hindu groups, unions, fraternal or athletic groups, or [...] any time in the past [address] [facility], were you homeless or living in a fpc (including now)? No 03/14/2024 Personal Safety Answer Date Recorded Have you ever been in or are you currently in a harmful physical or emotional relationship or is someone making you feel afraid or unsafe? 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 Author JORDI General Goal - Patient is knowledgeable about condition when worsening and how to respond ACO Care Management Marni Romo, RN Note: Problem: Knowledge deficit related to [...] take, when to call CM or provider. documented as of this encounter Visit Diagnoses Not on filedocumented in this encounter Care Teams Girl Friday Relationship Specialty Start Date End Date Jenna Chase DO [address] [facility] [address] [place] [address] PCP - General 10/01/16 Aristides Solomon MD [address] [facility] [address] [place] [address] Consulting Physician Gastroenterology 10/07/20 documented as of this encounter
--- OUTSIDE RECORDS SUMMARY | 2024-12-07 10:29 | XMS_ITS | CONTINUITY OF CARE DOCUMENT ---
Author Name clara, clara Address Unknown Organization [facility] Address [address] [place] [address] Phone [phone] Care Team Providers Care Piano Maker Name Role Phone Skyler Grace MD Unavailable [phone] PRAMOD GONZALEZ MD Unavailable [phone] ERIN GHOSH DO Unavailable [phone] PROBLEMS Condition Status Date Provider Notes Chest pain active Skyler Grace MD CAD - S/P CABG active Skyler Grace MD HTN active Skyler Grace MD Hyperlipidemia active Skyler Grace MD GERD active Skyler Grace MD ENCOUNTERS Date Type Provider Location Encounter Diag nosis - In-person encounter Office Visit Skyler Grace MD [facility] Chest painCAD - S/P CABGHTNHyperlipidemiaGERD VITAL SIGNS Date Observation Value Provider Body Mass Index (Ratio) 40.25 kg/m2 Rashad Grace MD blood pressure, cuff size large Ke daina Sorto blood pressure, diastolic 86 mm[Hg] Ke rri Noreen blood pressure, systolic 146 mm[Hg] Christa Sorto oxygen saturation, oximetry 97 % Sharee Sorto respiratory rate E&M 20 /min Sharee goddard pulse rate 72 /min Sharee aleman weight E&M 257 [lb_av] Sharee Velez lder height E&M 67 [in_i] Sharee bober ALLERGIES No Known Drug Allergies HISTORY OF MEDICATION USE Medication Status Instructions Dates Provider Indications Com ments TYLENOL EXTRA STRENGTH TABLET active take as needed 4 Sharee Sorto ASPIRIN ADULT LOW DOSE 81 MG ORAL TABLET DELAYED RELEASE active One Tab By Mouth Daily 4 Sharee Sorto TAMSULOSIN HCL 0.4 MG ORAL CAPSULE active take one pill a day 4 Sharee Sorto SIMVASTATIN 20 MG ORAL TABLET active ONE TAB. DAILY 4 Sharee Sorto PANTOPRAZOLE SODIUM 40 MG ORAL TABLET DELAYED RELEASE active take one pill a day 4 Sharee Sorto ISOSORBIDE MONONITRATE ER 60 MG ORAL TABLET EXTENDED RELEASE 24 HOUR active one tab. daily 4 Sharee Sorot CARTIA XT 240 MG ORAL CAPSULE EXTENDED RELEASE 24 HOUR active take one pill a day 4 Sharee Sorto SOCIAL HISTORY Date Observation Value Provider number of grandchildren Skyler Grace MD social history reviewed E&M revi ewed - no changes required Skyler Grace MD smoking status Never smoker Sharee buchanan FUNCTIONAL STATUS Date Observation Value Provider HRA, CV Assess/Plan, Angina (inactive) Management Plan continue current therapy Skyler Grace MD FAMILY HISTORY Family Member Condition Father Family History of Bailey dden Cardiac : Father Family History of Hy pertension: Father Family History of Hy perlipidemia: Father Family History of Di abetes: Father Family History of De pression: Father Family History of CV A or Stroke: Mother Family History of Bailey dden Cardiac : Mother Family History of Hy pertension: Mother Family History of Hy perlipidemia: Mother Family History of Di abetes: Mother Family History of CV A or Stroke: INSURANCE PROVIDERS Payer name Policy type / Coverage type [facility] ID [facility] [id number] [place] Medicare [id number] ADVANCE DIRECTIVES Name Date DISCUSSED - NO DECISION MADE TREATMENT PLAN Date Name Performer [facility] Follow up Jules [facility] Follow up [place] rashmi Grace MD [facility] Follow up :Blood pressure control is satisfactory. Skyler Grace MD [facility] Follow up :Chest pain free. Recent cardiac cath showing patent grafts. Severe three vessel disease with preserved functions. Clinically stable. Continues all medications as before, and will follow with Dr. Gonzalez. Skyler Grace MD HISTORY OF PROCEDURES Procedure Date Procedure Name Provider Procedure Notes S tatus EKG Skyler Grace MD complet ed
--- OUTSIDE RECORDS SUMMARY | 2024-12-07 10:29 | XMS_ITS | Data Portability ---
[facility] Address [address] [place] [address] Assessment No assessment recorded. Plan of Treatment Reminders Order Date Submit Date Provider Last Modified By Organization Details Last Modified Time Details Appointments None recorded. Lab SARS CoV 2 RNA (COVID-19), QL, family caseworker-PCR, respiratory specimen - [place] Tuesday 12:00 2020 021 [facility] (Lab), [address] [place], [address], 15:49:54 Referral None recorded. Procedures None recorded. Surgeries None recorded. Imaging None recorded. Medication Orders None recorded. Patient TargetsNo targets recorded. Patient Instructions Encounter Date Encounter Id Patient Instructions Last Modified By Organization Details Last Modified Time 07/07/2020 [id number] 9 things to do i f you've been exposed to covid-19 [id number] Not available 07/07/2020 15:15:27 Reason for Referral None Reported. Results Created Date Observation Date Name Description Value Unit Range Abnormal Flag Note LastModifiedBy Organization Detail LastModifiedTime Result Notes None recorded. Medical Equipment None Reported. Vitals None Recorded Social History None recorded. Functional Status None recorded. Mental Status None recorded. Family History Nothing Reported. Medical History No medical history recorded. Past Encounters Encounter ID Performer Location Encounter Start Date Encounter Closed Date Diagnosis/Indication Diagnosis SNOMED-CT Code Diagnosis ICD10 Code Diagnosis Note [id number] Yamilex Mares, LAN MANAGER-YUAN perkins [address] [place] [address] 07/07/2020 14:41:35 07/08/2020 07:20:33 Exposure to SARS-CoV-2 882105321 Z20.828 Health Concerns Section Related Observation LastModified by Organization Detai ls LastModified Time None Recorded Concern Status LastModified by Organization Details LastModified Time None Recorded Advance Directives Directive None Recorded Payers Encounter Date Sequence Insurance Name Policy Number Policy Wynn Covered Member ID Wynn Member ID Guarantor Name 07/07/2020 1 [place] Howie Herman [employer] [id number] Howie [employer] Notes Date Note Type Note Provider Name and Address Organization Details Recorded Time 07/07/2020 text/html COVID-19 Symptom s November 2019Reported bypatient.COVID-19 Signs and Symptomscough same Contacts and Exposureclose contact with a confirmed or suspected case of COVID-19; exposed 4 days ago Yamilex Mares, ONEAL-YUAN Attn: Accounting,[address] [facility], [place], [address], [place] [facility] 07/07/2020 15:16:02
--- OUTSIDE RECORDS SUMMARY | 2024-12-07 10:29 | XMS_ITS | Clinical Summary ---
Author Organization [facility] Address [facility] [place] [address] Care Team Providers Care Synthetic Plasterer Name Role Phone Jenna Chase DO Primary Care Provi jass Aristides Solomon MD Unavailable Allergies No known active allergies Medications aspirin [...] in the ER.Trops are trending up,admitted for CA workup,consult cardiology.Con't eliquis,statin,low fat,low cholesterol diet. -03/07/2024,He is pain free at exam,denies SOB,metoprolol dose increased by cardiology today,con't imdur and ASA,cardiology following.EF 65% on echo,no acute findings. Assessment & Plan (03/06/2024 7:48 PM CDT): -CASIE,He presented to the ER via EMS from home with sudden onset of chest pain,SOB,pain radiating to his left arm while trimming grass after mowing his lawn.He received 2 nitro by EMS which relieved his pain.He received an aspirin in the ER.Trops are trending up,admitted for CA workup,consult cardiology.Con't eliquis,statin,low fat,low cholesterol diet. Mixed [...] -06/03/2023,chronic,encouraged to follow 1800 calorie diabetic diet.Ayush Anderson was advised to maintain a low fat, low cholesterol diet. -12/09/2023,chronic,encouraged to follow 1800 calorie diabetic diet.Ayush Anderson was advised to maintain a low [...] 06/20/2023 Assessment & Plan (06/28/2023 11:25 PM PRODUCTION POTTER): -06/03/2023,chronic,encouraged to follow 1800 calorie diabetic diet.Ayush Anderson was advised to maintain a low [...] cardiology. Assessment & Plan (06/28/2023 11:19 PM PRODUCTION POTTER): -06/02/2022,chronic,compensated,con't lasix 40mg daily,metoprolol 100mg daily,imdur 60mg [...] cardiology. Assessment & Plan (06/24/2022 12:33 AM PRODUCTION POTTER): -06/02/2022,chronic,compensated,con't lasix 40mg daily,metoprolol 100mg daily,imdur 60mg [...] loss. Assessment & Plan (06/28/2023 11:26 PM PRODUCTION POTTER): -12/21/2021,chronic,unchanged,was counseled regarding importance of weight loss. -06/02/2022,chronic,unchanged,was counseled regarding importance of weight loss. -11/30/2022,chronic,stable,was counseled regarding importance of weight loss. -06/03/2023,chronic,stable,was counseled regarding importance of weight loss. Assessment & Plan (12/16/2022 9:05 PM CDT): -12/21/2021,chronic,unchanged,was counseled regarding importance of weight loss. -06/02/2022,chronic,unchanged,was counseled regarding importance of weight loss. -11/30/2022,chronic,stable,was counseled regarding importance of weight loss. Assessment & Plan (06/24/2022 12:43 AM PRODUCTION POTTER): -12/21/2021,chronic,unchanged,was counseled regarding importance of weight loss. -06/02/2022,chronic,unchanged,was counseled regarding importance of weight loss. Assessment & Plan (01/04/2022 8:29 PM CDT): -12/21/2021,chronic,unchanged,was counseled regarding importance of weight loss. Localized edema 08/14/2021 Assessment & Plan (06/28/2023 11:24 PM PRODUCTION POTTER): -08/31/2021,chronic,con't HCTZ 25mg daily,low salt diet. -12/21/2021,chronic,improved,con't [...] diet. Assessment & Plan (06/24/2022 12:44 AM PRODUCTION POTTER): -08/31/2021,chronic,con't HCTZ 25mg daily,low salt diet. -12/21/2021,chronic,improved,con't [...] daily. Assessment & Plan (06/28/2023 11:27 PM PRODUCTION POTTER): -08/31/2021,chronic,rate-controlled,con't metoprolol 100mg daily,xarelto 20mg daily. -12/21/2021,chronic,rate-controlled,con't [...] daily. Assessment & Plan (06/24/2022 12:31 AM PRODUCTION POTTER): -08/31/2021,chronic,rate-controlled,con't metoprolol 100mg daily,xarelto 20mg daily. -12/21/2021,chronic,rate-controlled,con't metoprolol 100mg daily,xarelto 20mg daily. -06/02/2022,chronic,rate-controlled,con't metoprolol 100mg daily,xarelto 20mg daily. Assessment & Plan (01/04/2022 8:20 PM CDT): -08/31/2021,chronic,rate-controlled,con't metoprolol 100mg daily,xarelto 20mg daily. -12/21/2021,chronic,rate-controlled,con't metoprolol 100mg daily,xarelto 20mg daily. Assessment & Plan (09/25/2021 9:14 PM CDT): -08/31/2021,chronic,rate-controlled,con't metoprolol 100mg daily,xarelto 20mg daily. Chronic anticoagulation 08/14/2021 Assessment & Plan (06/28/2023 11:19 PM PRODUCTION POTTER): -08/31/2021,chronic,con't xarelto 20mg daily. -12/21/2021,chronic,con't xarelto 20mg daily. -06/02/2022,chronic,con't xarelto 20mg daily. -11/30/2022,chronic,con't xarelto 20mg daily. -06/03/2023,chronic,con't xarelto 20mg daily. Assessment & Plan (12/16/2022 8:59 PM CDT): -08/31/2021,chronic,con't xarelto 20mg daily. -12/21/2021,chronic,con't xarelto 20mg daily. -06/02/2022,chronic,con't xarelto 20mg daily. -11/30/2022,chronic,con't xarelto 20mg daily. Assessment & Plan (06/24/2022 12:34 AM PRODUCTION POTTER): -08/31/2021,chronic,con't xarelto 20mg daily. -12/21/2021,chronic,con't xarelto 20mg daily. -06/02/2022,chronic,con't xarelto 20mg daily. Assessment & Plan (01/04/2022 8:24 PM CDT): -08/31/2021,chronic,con't xarelto 20mg daily. -12/21/2021,chronic,con't xarelto 20mg daily. Assessment & Plan (09/25/2021 9:14 PM CDT): -08/31/2021,chronic,con't xarelto 20mg daily. Partial thickness rotator cuff tear 04/21/2021 Assessment & Plan (06/24/2022 12:41 AM PRODUCTION POTTER): -08/31/2021,chronic,con't ibuprofen,exercises. -06/02/2022,chronic,con't ibuprofen,exercises. Assessment & Plan (09/25/2021 9:22 PM CDT): -08/31/2021,chronic,con't ibuprofen,exercises. Lumbosacral spondylosis without myelopathy 02/23 Assessment & Plan (06/28/2023 11:24 PM PRODUCTION POTTER): -02/27/2020,08/29/2020,Chronic,unchanged,con't naproxen. -12/29/2020,chronic,con't ibuprofen 800mg tid. -08/31/2021,chronic,unchanged,con't [...] loss. Assessment & Plan (06/24/2022 12:43 AM PRODUCTION POTTER): -02/27/2020,08/29/2020,Chronic,unchanged,con't naproxen. -12/29/2020,chronic,con't ibuprofen 800mg tid. -08/31/2021,chronic,unchanged,con't [...] 12/29/2020 Assessment & Plan (06/28/2023 11:20 PM PRODUCTION POTTER): -02/27/2020,08/29/2020,Chronic,unchanged,con't naproxen. -12/29/2020,chronic,con't ibuprofen 800mg tid. -08/31/2021,chronic,unchanged,con't [...] loss. Assessment & Plan (06/24/2022 12:41 AM PRODUCTION POTTER): -02/27/2020,08/29/2020,Chronic,unchanged,con't naproxen. -12/29/2020,chronic,con't ibuprofen 800mg tid. -08/31/2021,chronic,unchanged,con't [...] 12/29/2020 Assessment & Plan (06/28/2023 11:26 PM PRODUCTION POTTER): -12/29/2020,new,multiple family stressors,start buspar 5mg tid,was encouraged [...] program. Assessment & Plan (06/24/2022 12:40 AM PRODUCTION POTTER): -12/29/2020,new,multiple family stressors,start buspar 5mg tid,was encouraged [...] dermatology. Assessment & Plan (06/28/2023 11:18 PM PRODUCTION POTTER): -02/27/2020,08/29/2020,12/29/2020,right leg,increasing in size,different colors,needs to see [...] dermatology. Assessment & Plan (06/24/2022 12:44 AM PRODUCTION POTTER): -02/27/2020,08/29/2020,12/29/2020,right leg,increasing in size,different colors,needs to see [...] yet. Assessment & Plan (08/31/2020 5:54 PM PRODUCTION POTTER): -02/27/2020,08/29/2020,right leg,increasing in size,different colors,needs to see derm Assessment & Plan (03/02/2020 9:22 PM CDT): -02/27/2020,right leg,increasing in size,different colors,needs to see derm Assessment & Plan (09/02/2019 8:58 PM PRODUCTION POTTER): -right leg,increasing in size,different colors,needs to see [...] exercise. Assessment & Plan (06/28/2023 11:21 PM PRODUCTION POTTER): -02/27/2020,08/29/2020,12/29/2020,chronic,worse,was counseled regarding importance of weight loss. [...] discussed. Assessment & Plan (06/24/2022 12:34 AM PRODUCTION POTTER): -02/27/2020,08/29/2020,12/29/2020,chronic,worse,was counseled regarding importance of weight loss. [...] discussed. Assessment & Plan (08/31/2020 5:58 PM PRODUCTION POTTER): -02/27/2020,08/29/2020,chronic,worse,was counseled regarding importance of weight loss. [...] discussed. Assessment & Plan (09/02/2019 8:58 PM PRODUCTION POTTER): Obesity-worse,was counseled regarding importance of weight loss. [...] discussed. Assessment & Plan (09/01/2018 9:55 PM PRODUCTION POTTER): Obesity-worse,was counseled regarding importance of weight loss. [...] 05/03/2017 Assessment & Plan (06/28/2023 11:20 PM PRODUCTION POTTER): -02/27/2020,08/29/2020,12/29/2020,Chronic,use nasal spray,increase fluid intake. -08/31/2021,Chronic,use nasal [...] intake. Assessment & Plan (06/24/2022 12:35 AM PRODUCTION POTTER): -02/27/2020,08/29/2020,12/29/2020,Chronic,use nasal spray,increase fluid intake. -08/31/2021,Chronic,use nasal [...] intake. Assessment & Plan (08/31/2020 5:55 PM PRODUCTION POTTER): -02/27/2020,08/29/2020,Chronic-use nasal spray,increase fluid intake. Assessment & Plan (03/02/2020 9:23 PM CDT): -02/27/2020,Chronic-use nasal spray,increase fluid intake. Assessment & Plan (09/02/2019 8:58 PM PRODUCTION POTTER): Chronic-use nasal spray,increase fluid intake. Assessment & Plan (04/21/2019 10:30 AM CDT): Chronic-use nasal spray,increase fluid intake. Assessment & Plan (02/04/2019 10:12 PM CDT): Chronic-use nasal spray,increase fluid intake. Assessment & Plan (09/01/2018 10:00 PM PRODUCTION POTTER): Chronic-start zpak,use nasal spray,increase fluid intake. Assessment & Plan (05/11/2017 11:01 AM PRODUCTION POTTER): Patient demonstrates acute on chronic sinusitis. Patient [...] triggers. Assessment & Plan (06/28/2023 11:22 PM PRODUCTION POTTER): -02/27/2020,08/29/2020,12/29/2020,Chronic,stable,con't protonix 40mg every day,avoid food triggers. [...] triggers. Assessment & Plan (06/24/2022 12:36 AM PRODUCTION POTTER): -02/27/2020,08/29/2020,12/29/2020,Chronic,stable,con't protonix 40mg every day,avoid food triggers. [...] triggers. Assessment & Plan (08/31/2020 5:57 PM PRODUCTION POTTER): -02/27/2020,08/29/2020,Chronic-stable,con't protonix 40mg every day,avoid food triggers. Assessment & Plan (03/02/2020 9:26 PM CDT): -02/27/2020,Chronic-stable,con't protonix 40mg every day. Assessment & Plan (09/02/2019 8:57 PM PRODUCTION POTTER): Chronic-stable,con't protonix Assessment & Plan (04/21/2019 10:30 AM CDT): Chronic-stable,con't protonix Assessment & Plan (02/04/2019 10:12 PM CDT): Chronic-stable,con't protonix Assessment & Plan (09/01/2018 9:56 PM PRODUCTION POTTER): Chronic-stable,con't protonix Assessment & Plan (04/27/2018 9:38 PM CDT): Chronic-stable,con't protonix Assessment & Plan (01/07/2018 7:32 PM CDT): Chronic-stable,con't protonix Assessment & Plan (09/10/2017 12:49 PM PRODUCTION POTTER): Chronic-stable,con't protonix Assessment & Plan (05/04/2017 9:27 [...] day. Assessment & Plan (06/28/2023 11:18 PM PRODUCTION POTTER): -02/27/2020,08/29/2020,12/29/2020,chronic,unchanged,con't flomax .4mg every day. -08/31/2021,chronic,stable,con't flomax [...] day. Assessment & Plan (06/24/2022 12:36 AM PRODUCTION POTTER): -02/27/2020,08/29/2020,12/29/2020,chronic,unchanged,con't flomax .4mg every day. -08/31/2021,chronic,stable,con't flomax [...] day. Assessment & Plan (08/31/2020 5:54 PM PRODUCTION POTTER): -02/27/2020,08/29/2020,chronic,unchanged,con't flomax .4mg every day. Assessment & Plan (03/02/2020 9:23 PM CDT): -02/27/2020,chronic,unchanged,con't flomax .4mg every day. Assessment & Plan (09/02/2019 8:55 PM PRODUCTION POTTER): -chronic,unchanged,con't flomax Assessment & Plan (04/21/2019 10:29 AM CDT): -chronic,unchanged,con't flomax Assessment & Plan (02/04/2019 10:11 PM CDT): -chronic,unchanged,con't flomax Assessment & Plan (09/01/2018 9:56 PM PRODUCTION POTTER): -chronic,unchanged,con't flomax Assessment & Plan (04/27/2018 9:40 [...] exercise. Assessment & Plan (06/28/2023 11:23 PM PRODUCTION POTTER): -02/27/2020,chronic,Hypertension is improving with treatment.BP 136/85,con't cartia [...] exercise. Assessment & Plan (06/24/2022 12:28 AM PRODUCTION POTTER): -02/27/2020,chronic,Hypertension is improving with treatment.BP 136/85,con't cartia [...] exercise. Assessment & Plan (08/31/2020 5:56 PM PRODUCTION POTTER): -02/27/2020,chronic,Hypertension is improving with treatment.BP 136/85,con't cartia [...] appointment. Assessment & Plan (09/02/2019 8:55 PM PRODUCTION POTTER): -Hypertension is improving with treatment.BP 132/68,con't cartia. [...] appointment. Assessment & Plan (09/01/2018 9:54 PM PRODUCTION POTTER): Hypertension is improving with treatment.BP 110/70,con't cartia. [...] appointment. Assessment & Plan (09/10/2017 12:50 PM PRODUCTION POTTER): Hypertension is improving with treatment.BP 100/80,controlled. Continue [...] regular appointment. Coronary artery disease invo lving [place] coronary artery of [place] heart without angina pectoris 08/20/2014 Overview (10/07/2016): [...] diet. Assessment & Plan (06/28/2023 11:22 PM PRODUCTION POTTER): -02/27/2020,08/29/2020,12/29/2020,chronic,Coronary artery disease is improving with treatment. [...] diet. Assessment & Plan (06/24/2022 12:29 AM PRODUCTION POTTER): -02/27/2020,08/29/2020,12/29/2020,chronic,Coronary artery disease is improving with treatment. [...] exercise. Assessment & Plan (08/31/2020 5:55 PM PRODUCTION POTTER): -02/27/2020,08/29/2020,chronic,Coronary artery disease is improving with treatment. [...] loss. Assessment & Plan (06/28/2023 11:22 PM PRODUCTION POTTER): -02/27/2020,08/29/2020,12/29/2020,chronic,Stable,was advised to maintain a low fat, [...] loss. Assessment & Plan (06/24/2022 12:28 AM PRODUCTION POTTER): -02/27/2020,08/29/2020,12/29/2020,chronic,Stable,was advised to maintain a low fat, [...] loss. Assessment & Plan (08/31/2020 5:57 PM PRODUCTION POTTER): -02/27/2020,08/29/2020,chronic,Stable,was advised to maintain a low fat, low cholesterol diet, encouraged to maintain a regular cardiovascular exercise program,counseled regarding importance of weight loss. Assessment & Plan (03/02/2020 9:27 PM CDT): -02/27/2020,chronic,Stable,was advised to maintain a low fat, low cholesterol diet, encouraged to maintain a regular cardiovascular exercise program,counseled regarding importance of weight loss. Assessment & Plan (09/02/2019 8:56 PM PRODUCTION POTTER): Stable-was advised to maintain a low fat, [...] loss. Assessment & Plan (09/01/2018 9:58 PM PRODUCTION POTTER): Stable-was advised to maintain a low fat, [...] loss. Assessment & Plan (09/10/2017 12:49 PM PRODUCTION POTTER): Stable- was advised to maintain a low [...] loss. Assessment & Plan (06/28/2023 11:27 PM PRODUCTION POTTER): -02/27/2020,08/29/2020,Chronic,unchanged,con't naproxen. -12/29/2020,chronic,con't ibuprofen 800mg tid. -08/31/2021,chronic,unchanged,con't [...] loss. Assessment & Plan (06/24/2022 12:41 AM PRODUCTION POTTER): -02/27/2020,08/29/2020,Chronic,unchanged,con't naproxen. -12/29/2020,chronic,con't ibuprofen 800mg tid. -08/31/2021,chronic,unchanged,con't [...] tid. Assessment & Plan (08/31/2020 5:58 PM PRODUCTION POTTER): -02/27/2020,08/29/2020,Chronic,unchanged,con't naproxen. Assessment & Plan (03/02/2020 9:32 PM CDT): -02/27/2020,Chronic,unchanged,con't naproxen. Assessment & Plan (09/02/2019 8:57 PM PRODUCTION POTTER): Chronic-unchanged,con't naproxen. Assessment & Plan (04/21/2019 10:30 AM CDT): Chronic-unchanged,con't naproxen. Assessment & Plan (02/04/2019 10:12 PM CDT): Chronic-unchanged,con't naproxen. Assessment & Plan (09/01/2018 9:57 PM PRODUCTION POTTER): Chronic-unchanged,con't naproxen. Assessment & Plan (04/27/2018 9:41 PM CDT): Chronic-con't naproxen. Assessment & Plan (09/10/2017 12:47 PM PRODUCTION POTTER): Chronic-con't naproxen. Resolved Problems Problem Noted Date [...] 06/03/2023 Assessment & Plan (06/28/2023 11:17 PM PRODUCTION POTTER): -06/03/2023,Exam completed. Acute bacterial sinusitis 04/18/2023 Assessment [...] cardiology. Assessment & Plan (06/24/2022 12:52 AM PRODUCTION POTTER): -06/02/2022,chronic,compensated,con't lasix 40mg daily,metoprolol 100mg daily,imdur 60mg daily,low salt diet,fluid restriction,followed by cardiology. Hyperglycemia 06/02/2022 05/02/2023 CARROLL (dyspnea on exertion) 04/21/2022 History of 2019 novel healy virus disease (COVID-19) 04/21/2022 06/24/2022 Sacroiliitis 09/21/2021 06/28/2023 Assessment & Plan (06/24/2022 12:42 AM PRODUCTION POTTER): -06/02/2022,chronic,unchanged,con't ibuprofen 800mg tid,was encouraged to maintain [...] (09/16/2020): Added automatically from request for surgery [id number] Hidradenitis suppurativa of right axilla 02/07/2020 03/02/2020 Overview (02/07/2020): worsening stop bactrim, start ceftin referral to surgery edu given and reviewed Encounter for Medicare annual wellness exam 12/19/2018 11/30/2022 Assessment & Plan (06/24/2022 12:45 AM PRODUCTION POTTER): -06/02/2022,Exam done. Assessment & Plan (03/02/2020 9:24 PM CDT): -02/27/2020,exam done. Assessment & Plan (02/04/2019 10:13 PM CDT): -exam done,forms completed BMI 40.0-44.9, adult 05/11/2017 018 Obesity, morbid, BMI 40.0-49.9 05/04/2017 12/27/2017 Assessment & Plan (09/10/2017 12:47 PM PRODUCTION POTTER): Obesity is unchanged. Discussed the patient's BMI. [...] 12/27/2017 Assessment & Plan (09/10/2017 12:48 PM PRODUCTION POTTER): Obesity is unchanged. Discussed the patient's BMI. [...] 04/07/2020 Assessment & Plan (06/24/2022 12:30 AM PRODUCTION POTTER): -02/27/2020,08/29/2020,12/29/2020,chronic,Lipid abnormalities are improving with treatment.con't lipitor [...] low cholesterol diet. -12/21/2021,chronic,controlled,con't lipitor 80mg daily,Ayush Drakeer was advised to maintain a low fat, [...] 04/07/2020 Assessment & Plan (08/31/2020 5:57 PM PRODUCTION POTTER): -02/27/2020,08/29/2020,chronic,Lipid abnormalities are improving with treatment.con't zocor [...] 12/28/2018 Assessment & Plan (09/02/2019 8:57 PM PRODUCTION POTTER): -chronic,Lipid abnormalities are improving with treatment.con't zocor. [...] ordered. Assessment & Plan (09/01/2018 9:57 PM PRODUCTION POTTER): Lipid abnormalities are improving with treatment.con't zocor. [...] ordered. Assessment & Plan (09/10/2017 12:48 PM PRODUCTION POTTER): Lipid abnormalities are improving with treatment. con't zocor. Nutritional counseling was provided. and Pharmacotherapy as ordered. Assessment & Plan (05/04/2017 9:28 PM CDT): Lipid abnormalities are improving with treatment. Nutritional counseling was provided. and Pharmacotherapy as ordered. BMI 39.0-39.9,adult 05/21/2016 09/02/19 Overview (10/07/2016): BMI 39.0-39.9,adult Assessment & Plan [...] exercise. Assessment & Plan (08/31/2020 5:58 PM PRODUCTION POTTER): -02/27/2020,08/29/2020,chronic,Coronary artery disease is improving with treatment. Continue current treatment regimen. Dietary sodium restriction. Weight loss. Regular aerobic exercise. Assessment & Plan (03/02/2020 9:31 PM CDT): -02/27/2020,chronic,Coronary artery disease is improving with treatment. Continue current treatment regimen. Dietary sodium restriction. Weight loss. Regular aerobic exercise. Assessment & Plan (09/02/2019 8:57 PM PRODUCTION POTTER): Coronary artery disease is improving with treatment. [...] exercise. Assessment & Plan (09/01/2018 9:53 PM PRODUCTION POTTER): Coronary artery disease is improving with treatment. Continue current treatment regimen. Dietary sodium restriction. Weight loss. Regular aerobic exercise. Hypertension 11/17/2013 04/05/2017 Overview (10/08/2016): High blood pressure Heart valve disease 11/17/2013 09/11/19 18 Overview (10/09/2016): Heart valve problem Knee pain [...] sodium restriction. Weight loss. Regular aerobic exercise. Encounters Date Type Department Care Team Description 11/22/2024 8:15 AM CDT Ancillary Procedure [facility] at [address] [place] [id number] Chronic heart failure with preserved ejection fraction (HCC) 11/22/2024 Results Follow-Up [facility] [address] [place] [address] Kathy Magdaleno RN Transthoracic Echo (TTE) Complete W Doppler/CF 11/20/2024 11:00 AM CDT Office Visit [facility] [address] [place] [phone] Jaya Tariq MD Chronic heart failure with preserved ejection fraction (HCC) (Primary Dx) 11/20/2024 Telephone [facility] [address] [place] [phone] Jaya Tariq MD from Last 3 Months Immunizations Immunization Administration Dates Next Due Influenza, Quadrivalent, Hig h Dose, Preservative Free, Intrr 05/02/2023,05/19/2022,04/21/2021 Influenza, Split 07/07/2012 Influenza, Trivalent, High D ose, Split, Preservative Free, Intramuscular 03/22/2024,03/14/2020,04/20/2019,04/27,05/21/2016,03/04/2015 Influenza, Trivalent, IM (MDV) 04/03/2015 Influenza, Unspecified 05/02/2023,2021,04/21/2021,03/14,04/20/2019,04/27/2018,05/21/2016 ,04/03/2015,03/04/2015,07/07/2012 Soraida (J&J) SARS-CoV-2 Vaccination 06/17/2021, 09/05/2020 Pneumococcal Conjugate Pcv20 12/29/2023(Deferred : Patient Refused) Pneumococcal Polysaccharide PPV23 04/20/2019,08/2011 Tdap 04/20/2019 Surgical History Surgery Date Site/Laterality Comments KNEE ARTHROPLASTY Knee replacement CORONARY ARTERY BYPASS GRAFT CABG CATARACT EXTRACTION Cataract extraction APPENDECTOMY Appendectomy OTHER SURGICAL HISTORY left hand sx NOSE SURGERY CARDIAC CATHETERIZATION 04/07/2020 UPPER GASTROINTESTINAL ENDOSCOPY Medical History Medical History Date Comments Hyperlipidemia Hyperlipidemia Cardiovascular disease Coronary artery disease Hypertension Hypertension Hx Other Medical triple bypass Hx Other Medical knee surg Hx Other Medical arm surg Coronary artery disease Benign prostatic hyperplasia GERD (gastroesophageal reflu x disease) Arthritis Obesity Hidradenitis suppurativa of right axilla 02/07/2020 worsening stop bactrim, star t ceftin referral to surgery edu given and reviewed A-fib (HCC) Old myocardial infarction 08/20/2014 Old my ocardial infarction Sleep difficulties History of 2019 novel healy virus disease (COVID-19) 04/21/2022 Myalgia 09/21/2021 Acute bacterial sinusitis 04/18/2023 CARROLL (dyspnea on exertion) 04/21/2022 Acute cystitis without hematuria 11/24/2023 Dysuria 11/24/2023 Family History Medical History Relation Name Comments Coronary artery disease Father To[place] nary artery disease; Hyperlipidemia Father Hyperlipidemi a; Hypertension Father Hypertension; Leukemia Father Leukemia; Cause of : Leukemia Liver cancer Father Cancer -liver; Coronary artery disease Mother Toño nary artery disease; /Coronary artery disease; Cause of : Coronary artery disease Hyperlipidemia Mother Hyperlipidemi a; Hypertension Mother Hypertension; Heart disease Other 1 Family history of Heart disease; Leukemia Other 2 Family history of Leukemia; Relation Name Status Comments Father Maternal Grandfather Maternal Grandmother Mother Other 1 Other 2 Paternal Grandfather Paternal Grandmother Social History Tobacco Use Types Packs/Day Years Used Date Smoking Tobacco: Never Smokeless Tobacco: Never Tobacco Cessation:Counseling Given: Not Answered Alcohol Use Standard Drinks/Week Comments Yes 3 (1 standard drink = 0.6 oz pur e alcohol) 3 beers [facility] Utilities Answer Date Recorded In the past 12 months has th e electric, gas, oil, or water company threatened to [...] often do you attend chur ch or jain services? Never 03/14/2024 Do you belong to any clubs o r organizations such as shinto groups, unions, fraternal or athletic groups, or [...] any time in the past 12 m [facility], were you homeless or living in a half-way (including now)? No 03/14/2024 Personal Safety Answer Date Recorded Have you ever been in or are you currently in a harmful physical or emotional relationship or is someone making you feel afraid or unsafe? Denies 03/09/2024 Sex and Gender Information Value Date Recorded Sex Assigned at Not on file Legal Sex Male 9:03 AM PRODUCTION POTTER Gender Identity Not on file Sexual Orientation Not on file Obstetrics History Last Filed Vital Signs Vital Sign Reading [...] 11/20/2024 11:16 AM CDT Plan of Treatment Health Maintenance Due Date Last Done Comments Foot Exam 1945 Hepatitis B Screening 1965 Zoster Vaccine (1 of 2) 1997 Pneumococcal vaccine 65+ (2 of 2 - PCV) 04/20/2020 04/20/2019, 05/05/2012 Covid-19 Vaccine (3 - 2023-2 5 season) 2024 06/17/2021, 09/05/2020 Well Visit 65+ 06/03/2024 06/03/2023, 05/06, 04/21/2021, Additional history exists Hemoglobin A1C 09/03/2024 03/06/2024, 12/02, 06/20/2023, Additional history exists Dilated Eye Exam 09/04/2024 09/05/2023 Albumin Creatinine Ratio, Urine 12/19/2024 Lipid Panel 03/09/2025 03/09/2024, 0 09/2023, 12/20/2023, Additional history exists eGFR 03/13/2025 03/13/2024, 0 03/2024, 03/11/2024, Additional history exists Depression Screening 03/22/2025 03/22/2024, 03/22/2024, 12/09/2023, Additional history exists Fall Risk Assessment 03/22/2025 03/22/2024, 03/13/2024, 12/09/2023, Additional history exists DTaP/Tdap/Td Vaccine (2 - Td or Tdap) 04/20/2029 04/20/2019 Hepatitis C Screening Completed 12/28/2018 Colon Cancer Screening-CT Colonography Discontinued 09/26/2020 Colon Cancer Screening-Colonoscopy Discontinued 09/26/2020 Colon Cancer Screening-DNA Stool Discontinued 09/27/19 21 Colon Cancer Screening-FIT Discontinued 09/26/2020 Colon Cancer Screening-FOBT Discontinued 09/26/2020 Colon Cancer Screening-Sigmoidoscopy Discontinued 09/26/2020 Colorectal Cancer Screening Discontinued Influenza Vaccine Completed 03/22/2024, , 05/02/2023, Additional history exists Goals Goal Patient Goal Type Associated Problems [...] or provider. Medical Devices Implanted Type Area Materials Planning Analyst Device Identifier Shelf Expiration Date Model / Serial / Lot Komal Michelle [id number] Device Closure Angio-Seal Vip Bondek-Plus Polyglyd L70 Cm Od6 Fr Odsec.035 In Vascular - [id number] Implanted:Qty: 1 on 05/08/2020 by Teto Odell MD at [facility] Collagen Right: Femoral Wantster Michelle [id number] / / [employer] Card Vasc Surgery 3.5 X 15mm Jigar Butts Rx Coronary Stent [id number] - [id number] Implanted:Qty: 1 on 03/10/2024 by Roberta Alva MD at [facility] Card Vasc Surgery 12/11/2026 [id number] / / [id number] Vital Access Device Vascular Closure Femoral Artery Bioabsorbable Dual Method Vascade 6-7fr Collagen [id number] - [id number] Implanted:Qty: 1 on 03/10/2024 by Roberta Alva MD at [facility] Vital Access 08/30/2025 [id number] / / [id number] Procedures Procedure Name Priority Date/Time Associated [...] disease without esophagitis Coronary artery disease involving [place] coronary artery of [place] heart without angina pectoris Benign prostatic hyperplasia [...] AM CDT Narrative 11/22/2024 1:03 PM CDT [facility] [address], [address], [place] [address] P:[phone] P:[phone] Echocardiographic Report Patient Name: AYUSH ANDERSON F [...] Site: Exam was interpreted at [facility]. Left Ventricle: Normal left ventricular systolic [...] Procedure Note Anderson Ruiz MD - 11/22/2024 [facility] [address] , [address], [place] [address] P:[phone] P:[phone] Echocardiographic Report Patient Name: AYUSH ANDERSON F : 1945 Study Date: 11/22/2024 8:21:03 AM Gender: M Tech: Location: [facility] Ref Provider: JAYA TARIQ Height(Cm): 168 BSA: [...] 0.60 - 1.00 ] MV E Peak Etrence 1.02m/s [ 0.60 - 1.30 ] LVPWd [...] Site: Exam was interpreted at [facility]. Left Ventricle: Normal left ventricular systolic [...] 5:17 AM CDT 03/13/2024 5:23 AM CDT Roberta Alva MD LAB BLOOD ORDERABLES Final Result EILEEN [id number] [place] [address] * (ABNORMAL) Lipid panel (03/09/2024 [...] NCEP Expert Panel. Circulation 2004;110:227 3. Feliz Patel et al. NADJA Cardiol. 2020 November 01;5(5):540-548. doi: 10.1001/jamacardio.2020.0013 Current Interpretive Data was [...] last revised on 2018. Chol/HDL ratio 3 [facility] Blood 03/09/2024 6:02 PM CDT 03/09/2024 6:02 PM CDT Narrative [facility] - 03/09/2024 6:51 PM CDT This lipid panel was automatically ordered due to a significant change in Troponin. The dietary status of the patient at the collection time should be correlated with the lipid results. us Opal COSTA LAB BLOOD ORDERABLES Final Res ult EILEEN [id number] [place] [address] * (ABNORMAL) Hemoglobin A1c (03/06/2024 7:34 PM CDT) Hgb A1C 5.9(H) 4.0 - 5.6 % Estimated Average Glucose 123 mg/dL EILEEN Comment: The ADA recommends reporting an estimated Average Glucose (eAG) with all Hemoglobin A1c results using the equation derived from a study of 507 normal and diabetic adults. Minority populations were underrepresented and children were not included. (Diabetes Care 31:5428-4450, 2008). The eAG is not equivalent to a fasting glucose. Blood 03/06/2024 7:34 PM CDT 03/06/2024 7:53 PM CDT Jennalacey [facility] LAB BLOOD ORDERABLE S Final Result Performing Organization Address [facility] de Phone Number RICKEYLINUS [address] [place] [address] * Albumin Creatinine Ratio, Urine (12/20/2023 10:36 AM CDT) Pathologist [facility] Albumin Ur <12.0 mg/L Comment: Interpretive Data No reference range established. Current interpretive data was last revised 2018. Creatinine Ur 174.5 mg/dL EILEEN Comment: Interpretive Data No reference range established. Current interpretive data was last revised 2018. Albumin Creatinine Ratio, Ur <7 1 - 29 mg/g EILEEN Urine 12/20/2023 10:3 6 AM CDT 12/20/2023 11:07 AM CDT Jennalacey Riojas [employer] LAB URINE ORDERABLE S Final Result Performing Organization Address [facility] Co de Phone Number RICKEYLINUS [address] [place] [address] * Diabetic Eye Exam (09/05/2023) Historical Provider HEALTH MAINTENANCE Final Result * COLONOSCOPY (09/26/2020 12:21 PM CDT) Anatomical Region Laterality Modality Other Narrative Procedure Note Aristides Solomon MD - 09/26/2020 12:21 PM CDT [facility] Endoscopy Lab Patient Name: Ayush Anderson Procedure [...] the bowelpreparation was evaluated using the BBPS ([place] BowelPreparation Scale) with scores of: Right Colon [...] polyp removal. Procedure Code(s): --- Professional --- 53759, Colonoscopy, flexible; with removal of tumor(s), polyp(s), or other lesion(s) by snare technique 69830, 59, Colonoscopy, flexible; with biopsy,single or multiple Diagnosis Code(s): --- Professional --- K63.5, Polyp of colon Z12.11, Encounter for screening for malignantneoplasm of colon K64.8, Other hemorrhoids CPT copyright 2019 [employer]. All rights reserved. The codes documented in this report are preliminary and upon getter filler reviewmay be revised to meet current compliance requirements. Electronically signed by Aristides Solomon MD Aristides Solomon M.D. 09/26/2020 12:58:33 PM Number of Addenda: 0 Note Initiated On: 09/26/2020 12:21 PM Aristides Solomon MD ENDOSCOPY PROCEDURES Final Resul [...] MICROBIOLOGY - GENERAL ORDERABLES Final Result EILEEN [id number] [place] [address] from Last 3 Months or Most Recently Relevant to Health Maintenance Insurance MEDICARE COMMERCIAL GENERIC [facility]LY [facility] MEDICARE [facility] Address: [address] [address] [place] [address] [facility] MEDICARE [facility] Address: [address] [address] [place] [address] [facility] Advance Directives For more information, please contact: [phone] Documents on File Type Date Recorded Patient Physical Chemistry Professor Expl anation ADVANCE DIRECTIVE 11/25/2023 POWER OF CRYSTAL FINISHER-FINANCIAL/MEDICAL * Full Code (Latest Code Status on [...] Altern ate Health Care Agent Care Teams Synthetic Plasterer Relationship Specialty Start Date End Date Jenna Chase DO [address] [facility] [id number] [place] [id number] PCP - General 10/01/16 Aristides Solomon MD [address] [facility] [address] [place] [id number] Consulting Physician Gastroenterology 10/07/20
[2024-12-07 11:05] LABS: Anion Gap 8 mmol/L (4-12); Blood Urea Nitrogen 12 mg/dL (9-20); Calcium 9.6 mg/dL (8.4-10.2); Carbon Dioxide 29 mmol/L (22-30); Chloride 100 mmol/L (98-107); Estimated Glomerular Filt Rate > 60; Glucose 116 mg/dL (65-110); Potassium 4.5 mmol/L (3.4-5.0); Sodium 137 mmol/L (137-145)
== END 2024-12-07 10:20 | disposition home or self-care (01) ==
PROVIDERS: Visit Provider Internal Medicine
DX: I50.32 Chronic diastolic (congestive) heart failure (principal)
CPT/HCPCS: 36415; 80048